=== PATIENT | male | born 1935 | race Caucasian/White ===

== ENCOUNTER 2016-05-31 15:34 | Inpatient (IN) ==
[2016-05-31] MEDS ORDERED: *HR* HYDROmorphone (PF) 1 MG/ML SYRINGE IVP ONE (15:51)
--- NOTE | 2016-05-31 15:54 | Emergency Department Note ---
Disposition Clinical Impression: Diverticulitis large intestine Qualifiers: Diverticulitis bleeding: without bleeding Diverticulitis complication: with perforation Qualified Code(s): K57.20 - Diverticulitis of large intestine with perforation and abscess without bleeding Leukocytosis Qualifiers: Leukocytosis type: bandemia Qualified Code(s): D72.825 - Bandemia Disposition: Admitted As Inpatient Condition: Fair Instructions: Diverticulitis (ED) Referrals: NO,PCP [Non-Partnered Physician] - Forms: Work/School Release, ED Satisfaction Letter Time of Disposition: 16:13 (Dr. 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 He presents today as a transfer from the [facility] due to concern for diverticulitis and microperforation. Patient said the he has no known history of diverticulosis or diverticulitis. He has been having abdominal pain for the past 4 days. He presented to the [facility] and had a workup done. White blood cell count 16.4, neutrophil 80 blood shift, urinalysis negative, BMP shows creatinine 2.73, increased total bilirubin 1.4, direct bili 0.4. The patient had a CT scan done without contrast due to contrast allergy. CT shows sigmoid diverticulitis with a small focus of extraluminal free air consistent with a microperforation in the left lower quadrant. Patient was given Zosyn at the [facility]. Patient currently rates his pain a 7 out of 10. He did not receive any pain medication at the [place]. Denies any other symptoms of chest pain , shortness of breath, fevers, nausea, vomiting, blood in stool, burning or blood in urine. Pain Scale: 6 - Related Data Allergies Allergy/AdvReac Type Severity Reaction Status Date / Time ivp dye Allergy Anaphylaxis Uncoded 05/31/16 15:44 All systems ED: reviewed and negative except as stated. Abdominal Pain PMH - Past Medical History Medical history: Reports: coronary artery disease, CVA, hyperlipidemia, hypertension, myocardial infarction, renal disease, thyroid disease Male Surgical History: Reports: cholecystectomy Psychiatric history: Reports: no psych history - Social History Smoking status: Never smoker Alcohol use: Reports: none Drug use: Reports: none Physical Exam - General Limitations: no limitations General appearance: alert - Head Head exam: atraumatic, normocephalic, normal inspection - Eye Eye exam: Present: normal appearance, PERRL, EOMI - ENT ENT exam: normal exam, normal oropharynx, mucous membranes moist - Neck Neck exam: Present: normal inspection, full ROM, trachea midline - Chest Chest inspection: Present: normal inspection, symmetric chest wall rise - Respiratory Respiratory exam: Present: normal lung sounds bilaterally - Cardiovascular Cardiovascular exam: Present: regular rate, normal rhythm, normal heart sounds - Abdominal Exam Abdominal exam: Present: soft, tenderness (Moderate in left lower quadrant, mild right lower quadrant), guarding (mild voluntary). Absent: distention, rigidity, tenderness at McBurney's Point - Extremities Exam Extremities exam: Present: normal inspection, full ROM. Absent: tenderness, pedal edema - Back Exam Back exam: Present: normal inspection, full ROM. Absent: tenderness - Neurological Exam Neurological exam: Present: alert, oriented X3 - Psychiatric Psychiatric exam: Present: normal affect, normal mood - Skin Skin exam: Present: warm, dry, intact, normal color Course Course Narrative: Patient mildly hypertensive on presentation. Likely due to pain. The rest of vitals are within normal limits. Will give Dilaudid for pain control. CT scan shows diverticulitis with small perforation. I went through the scan myself and there is significant fat stranding in that area as well. Patient given Zosyn. Abdominal exam shows moderate tenderness in the left lower quadrant, mild in the right lower quadrant. No peritoneal signs at this time. We will talk with Dr. Montenegro, surgery, for further recommendation and likely admission. 16:[address] Montenegro with surgery, he stated that due to physical exam findings and only microperforation, this would be more of a medicine admission with surgery as a consult. He said that IV Zosyn was adequate coverage for right now. Otherwise, no immediate surgery at this time. His nurse practitioner will evaluate the patient while in the ED. 16:13 Dr. Gotti accepts for admission . Vital Signs Temperature 98.7 F 05/31/16 15:35 Pulse Rate 84 05/31/16 15:35 Respiratory Rate 18 05/31/16 15:35 Blood Pressure 162/88 05/31/16 15:35 O2 Sat by Pulse Oximetry 97 05/31/16 15:35 Temperature 98.7 F 05/31/16 15:35 Pulse Rate 84 05/31/16 15:35 Respiratory Rate 18 05/31/16 15:35 Blood Pressure 162/88 05/31/16 15:35 O2 Sat by Pulse Oximetry 97 05/31/16 15:35 Oxygen Delivery Oxygen Delivery Room Air Abdominal Pain - MDM Narrative Medical decision making narrative: atient mildly hypertensive on presentation. Likely due to pain. The rest of vitals are within normal limits. Will give Dilaudid for pain control. CT scan shows diverticulitis with small perforation. I went through the scan myself and there is significant fat stranding in that area as well. Patient given Zosyn. Abdominal exam shows moderate tenderness in the left lower quadrant, mild in the right lower quadrant. No peritoneal signs at this time. We will talk with Dr. Montenegro, surgery, for further recommendation and likely admission. 16:[address] Montenegro with surgery, he stated that due to physical exam findings and only microperforation, this would be more of a medicine admission with surgery as a consult. He said that IV Zosyn was adequate coverage for right now. Otherwise, no immediate surgery at this time. His nurse practitioner will evaluate the patient while in the ED. Michelle - Mariel.Denise Situation: Demographics, MOA Background: Presenting Complaint, Relevant PMH, Meds, & Allergies Assessment: Vital Signs, Course and respsone to treatment, Exam Concerns, Patient/Family Expectation, Pertinant Lab Results, Outstanding Labs Recommendation: Barrier(s) to disposition, Recommendation based on pending studies, treatments, or consults S.B.A.RHarjit Report Given to: Shen Martinez Repor Time: 16:13
--- NOTE | 2016-05-31 16:25 | Emergency Department Note ---
Disposition Clinical Impression: Diverticulitis large intestine Qualifiers: Diverticulitis bleeding: without bleeding Diverticulitis complication: with perforation Qualified Code(s): K57.20 - Diverticulitis of large intestine with perforation and abscess without bleeding Leukocytosis Qualifiers: Leukocytosis type: bandemia Qualified Code(s): D72.825 - Bandemia Disposition: Admitted As Inpatient Condition: Fair Instructions: Diverticulitis (ED) Referrals: NO,PCP [Non-Partnered Physician] - Forms: ED Satisfaction Letter, Work/School Release General Adult HPI - General Chief complaint: ED Abdominal Pain Stated complaint: abd pain Time Seen by Provider: 05/31/16 15:37 Source: EMS Mode of arrival: EMS Limitations: no limitations - History of Present Illness Pain Scale: 6 - Related Data Allergies Allergy/AdvReac Type Severity Reaction Status Date / Time lovastatin AdvReac unknown Verified 05/31/16 16:23 simvastatin AdvReac unknown Verified 05/31/16 16:23 ivp dye Allergy Anaphylaxis Uncoded 05/31/16 15:44 Past Medical History - Past Medical History Medical history: Reports: coronary artery disease, CVA, hyperlipidemia, hypertension, myocardial infarction, renal disease, thyroid disease Psychiatric history: Reports: no psych history - Social History Smoking Status: Never smoker Smokeless Tobacco Status: No Alcohol use: Reports: none Drug use: Reports: none Physical Exam - General Limitations: no limitations General appearance: alert Course - Reevaluation(s) Reevaluation #1: I saw the patient with the resident, Dr. Gaytan. The patient was transferred here from the [facility] after presenting there with abdominal pain. Evaluation and CT imaging were done. Patient found have diverticulitis. There is concern for microperforation as well. On arrival here the patient looks pretty comfortable lying in the bed. He does have some left lower quadrant tenderness. We discussed the case with surgery and they recommended no surgery at this time but antibiotics and admission to medicine with surgical consult. We have spoken with medicine as well and will arrange to admit the patient. Time: 16:24 Vital Signs Temperature 98.7 F 05/31/16 15:35 Pulse Rate 84 05/31/16 15:35 Respiratory Rate 18 05/31/16 15:35 Blood Pressure 162/88 05/31/16 15:35 O2 Sat by Pulse Oximetry 97 05/31/16 15:35 Temperature 98.7 F 05/31/16 15:35 Pulse Rate 84 05/31/16 15:35 Respiratory Rate 18 05/31/16 15:35 Blood Pressure 162/88 05/31/16 15:35 O2 Sat by Pulse Oximetry 97 05/31/16 15:35 Oxygen Delivery Oxygen Delivery Room Air Attestation Statement - Attestation Attestation: I, Dr. Damon, examined this patient [id number] and my medical decision- making was reviewed with Dr. Gaytan, Resident Physician. I agree with the documented findings, disposition and treatment plan as described except to the extent set forth below. Please see my progress notes for details.
[2016-05-31 16:31] LABS: INR 1.6; Prothrombin Time 17.3 Seconds (9.4-12.1)
[2016-05-31 16:34] LABS: Activated Partial Thrombo Time 34.6 Seconds (26.0-36.0)
[2016-05-31] MEDS ORDERED: Naloxone 0.4 MG/ML INJ IVP PRN (17:04)
[2016-05-31] MEDS ORDERED: *HR* HYDROmorphone (PF) 1 MG/ML SYRINGE IVP PRN (17:04)
[2016-05-31] MEDS ORDERED: Ondansetron 4 MG/2 ML VIAL IVP PRN (17:04)
[2016-05-31] MEDS ORDERED: Psyllium 1 PACKET POWD.PACK PO PRN (17:06)
--- NOTE | 2016-05-31 17:10 | General Surgery Consult Note ---
<LanMikeSkyler M - Last Filed: 06/01/16 09:22> Date of Encounter: 06/01/16 Medications and Allergies Amlodipine Besylate 10 mg PO DAILY 05/31/16 [History] Aspirin 81 mg PO DAILY 05/31/16 [History] Ezetimibe [Zetia] 10 mg PO DAILY 05/31/16 [History] Isosorbide DInitrate [Isordil] 20 mg PO TIDAC 05/31/16 [History] Levothyroxine [Synthroid] 37.5 mcg PO QAM 05/31/16 [History] Losartan [Cozaar] 25 mg PO DAILY 05/31/16 [History] Metoprolol XL (24 HR) Succ [Toprol XL] 50 mg PO DAILY 05/31/16 [History] Psyllium Husk/Aspartame [Metamucil Fiber Singles Packet] 3.4 gm PO DAILY PRN 06/15 [History] Allergies lovastatin Adverse Reaction (Verified 05/31/16 16:23) unknown va list simvastatin Adverse Reaction (Verified 05/31/16 16:23) unknown va list ivp dye Allergy (Uncoded 05/31/16 15:44) Anaphylaxis Review of Systems All systems PM: A 10-system review of systems was performed and is negative for pertinent findings except as documented above in the HPI. General Surgery Exam Initial Vital Signs Temp Pulse Resp BP Pulse Ox 98.7 F 84 18 162/88 97 05/31/16 15:35 05/31/16 15:35 05/31/16 15:35 05/31/16 15:35 05/31/16 15:35 Exam Initial Vital Signs Temp Pulse Resp BP Pulse Ox 98.7 F 84 18 162/88 97 05/31/16 15:35 05/31/16 15:35 05/31/16 15:35 05/31/16 15:35 05/31/16 15:35 Results - Labs 06/01/16 04:42 06/01/16 04:42 Abnormal lab results WBC 12.0 K/mcL (4.3-11.1) H 06/01/16 04:42 RBC 4.13 M/mcL (4.19-5.50) L 06/01/16 04:42 Hgb 12.1 g/dL (12.9-16.9) L 06/01/16 04:42 Hct 36.5 % (37.5-50.1) L 06/01/16 04:42 Neutrophils # 9.2 K/mcL (1.6-8.9) H 06/01/16 04:42 PT 17.3 Seconds (9.4-12.1) H 05/31/16 16:21 Sodium 131 mEq/L (136-145) L 06/01/16 04:42 BUN 34 mg/dL (8-26) H 06/01/16 04:42 Creatinine 2.50 mg/dL (0.72-1.25) H 06/01/16 04:42 Est GFR ( Amer) 30 (> 60) L 06/01/16 04:42 Est GFR (Non-Af Amer) 25 (> 60) L 06/01/16 04:42 POC Glucose 100 (58-89) H 06/01/16 05:48 Calculated Osmolality 279 (280-300) L 06/01/16 04:42 Calcium 8.4 mg/dL (8.6-10.8) L 06/01/16 04:42 Diabetes panel 06/01/16 Range/Units 04:42 Sodium 131 L (136-145) mEq/L Potassium 3.9 (3.5-4.5) mEq/L Chloride 101 (98-109) mEq/L Carbon Dioxide 22 (19-29) mEq/L BUN 34 H (8-26) mg/dL Creatinine 2.50 H (0.72-1.25) mg/dL Glucose 88 (70-99) mg/dL Calcium 8.4 L (8.6-10.8) mg/dL Calcium panel 06/01/16 Range/Units 04:42 Calcium 8.4 L (8.6-10.8) mg/dL Phosphorus 2.8 (2.3-4.7) mg/dL Pituitary panel 06/01/16 Range/Units 04:42 Sodium 131 L (136-145) mEq/L Potassium 3.9 (3.5-4.5) mEq/L Chloride 101 (98-109) mEq/L Carbon Dioxide 22 (19-29) mEq/L BUN 34 H (8-26) mg/dL Creatinine 2.50 H (0.72-1.25) mg/dL Glucose 88 (70-99) mg/dL Calcium 8.4 L (8.6-10.8) mg/dL Adrenal panel 06/01/16 Range/Units 04:42 Sodium 131 L (136-145) mEq/L Potassium 3.9 (3.5-4.5) mEq/L Chloride 101 (98-109) mEq/L Carbon Dioxide 22 (19-29) mEq/L BUN 34 H (8-26) mg/dL Creatinine 2.50 H (0.72-1.25) mg/dL Glucose 88 (70-99) mg/dL Calcium 8.4 L (8.6-10.8) mg/dL All other labs normal. Consult Discharge Plan - Plan Referrals: [facility] [Outside] - Attending Attestation I examined this patient and my medical decision-making was reviewed with the COATING OPERATOR/PA/Advanced Practice Nurse/Resident Physician. I agree with the documented findings, disposition and treatment plan as described except to the extent set forth below. I reviewed the above-noted history of physical examination and performed my own examination. Patient with left lower quadrant abdominal pain for about 3 days. States that the pain is slightly better currently. Last bowel movement was yesterday. No rectal bleeding noted. He does have pain to palpation in the left lower quadrant. Noted leukocytosis of 16,[address] scan consistent with diverticulitis with a small microperforation. I agree with conservative therapy with IV antibiotics and serial abdominal exams as well as pain control. Recommend ice chips for now. Will follow with you. <Harry Walker - Last Filed: 06/01/16 11:08> Date of Encounter: 06/01/16 Time of Encounter: 16:40 Assessment and Plan (1) Acute diverticulitis Current Visit: Yes Status: Acute CT with acute diverticulitis with microperforations: Serial abdominal exams. Trend vitals and labs. NPO except ice chips. Continue IV antibiotics Continue IV fluids. Supportive care/pain control No surgical intervention recommended at this time. Consider repeat CT prior to discharge or sooner if indicated. Recommend Colonscopy as outpatient after acute infection has resolved. (2) Leukocytosis Current Visit: Yes Status: Acute Labs done at [facility] prior to admission. WBC 16.4 with 80% neutrophils. Continue to monitor, will recheck in the AM. Qualifiers: Qualified Code(s): D72.825 - Bandemia (3) Hypertension Current Visit: Yes Status: Chronic Will continue to monitor. Management per medicine service Qualifiers: Qualified Code(s): I10 - Essential (primary) hypertension (4) CKD (chronic kidney disease) Current Visit: Yes Status: Chronic Management per medicine service Qualifiers: Qualified Code(s): N18.9 - Chronic kidney disease, unspecified (5) Hyperlipidemia Current Visit: Yes Status: Chronic Qualifiers: Qualified Code(s): E78.5 - Hyperlipidemia, unspecified (6) CAD (coronary artery disease) Current Visit: Yes Status: Chronic Management per medicine service Qualifiers: Qualified Code(s): I25.10 - Atherosclerotic heart disease of [place] coronary artery without angina pectoris History of Present Illness Consult date: 05/31/16 Reason for consult: abdominal pain Requesting physician: Arron Gaytan History of present illness: Mr. Morgan is a 80 year old male transferred from the [place] for abdominal pain x 4 days. Patient states the pain is worst in the LLQ, describes the pain as stabbing. He notes the pain is now dull since administration of pain medication. He notes nausea with decrease PO intake the past 4 days and decreased urine output as result. He states last BM was this AM, noting mucus. And last meal was cereal at 9:30am. He denies any fever, chills, chest pain, shortness of breath, vomiting, diarrhea, constipation, melena or blood in stool. He has a PMHx including HTN, CKD, multiple CVAs (currently on ASA 81mg) s/p bilateral carotid endoartectomies, prostate cancer s/p TURP (6years ago), cholecystectomy, and partial colon resection (in the for benign tumor). Last colonscopy 6-7 years ago. Past Med Surg Social Fam HX - Past Medical History Source: patient Medical history: cancer (prostate), coronary artery disease, CVA, hyperlipidemia , hypertension, myocardial infarction, renal disease, thyroid disease Psychiatric history: no psych history - Past Surgical History Surgical History: carotid endarterectomy (b/l), cholecystectomy, colectomy (R resection for benign tumor removal), other (TURP) - Social History Smoking Status: Former smoker Smokeless Tobacco Status: No Alcohol use: none Drug use: none - Family History Brother Hx Family Cardiac Disorders: Yes (CAD) Hx Family Cancer: Yes (colon) Review of Systems All systems PM: A 10-system review of systems was performed and is negative for pertinent findings except as documented above in the HPI. - Constitutional no chills, no fever(s) - EENT Nose, mouth and throat: no dysphagia - Cardiovascular no chest pain, no dyspnea, no syncope - Respiratory no dyspnea - Gastrointestinal abdominal pain, nausea, no constipation, no diarrhea, no dysphagia, no vomiting - Genitourinary no dysuria, no hematuria - Musculoskeletal no abnormal gait, no back pain - Integumentary no erythema, no rash - Neurological no abnormal gait, no confusion, no dizziness - Endocrine no excessive sweating, no fatigue General Surgery Exam Initial Vital Signs Temp Pulse Resp BP Pulse Ox 98.7 F 84 18 162/88 97 05/31/16 15:35 05/31/16 15:35 05/31/16 15:35 05/31/16 15:35 05/31/16 15:35 - General physical appearance well developed, well nourished, moderate pain - Eyes normal ocular movement - ENT normal mucosa, atraumatic, normocephalic - Neck trachea midline - Respiratory normal respiratory effort, clear to auscultation - Cardiovascular Cardiovascular exam: Present: RRR - Abdomen Abdomen general surgery: Present: bowel sounds present, soft, tender. Absent: distended, guarding, rebound, rigid Abdominal Tenderness: Present: LLQ - Integumentary Integumentary general surgery: Present: warm and dry - Neurologic Present: CN 2-12 grossly intact - Musculoskeletal Present: normal posture - Psychiatric Psychiatric general surgery: Present: A&Ox3, speech is normal, memory intact Exam Initial Vital Signs Temp Pulse Resp BP Pulse Ox 98.7 F 84 18 162/88 97 05/31/16 15:35 05/31/16 15:35 05/31/16 15:35 05/31/16 15:35 05/31/16 15:35 Results - Labs 06/01/16 04:42 06/01/16 04:42 Abnormal lab results PT 17.3 Seconds (9.4-12.1) H 05/31/16 16:21 All other labs normal.
[2016-05-31] MEDS ORDERED: 0.9 % Sodium Chloride 1,000 ML IVC SCH (17:15)
--- NOTE | 2016-05-31 17:45 | Internal Med History&Physical ---
Date of Encounter: 05/31/16 Time of Encounter: 17:10 Assessment and Plan (1) Acute diverticulitis Current visit: Yes Status: Acute CT abd/pelvis (done at the [facility]): acute sigmoid diverticulitis with a small focus of extraluminal free air, consistent with microperforation. -Surgery consultation requested by the ER physician -Dr. Montenegro to follow the patient and supportive care recommended at this time -appreciate surgical eval -Pt received one dose of Zosyn, will continue Ciprofloxacin 400mg IV q12h and Metronidazole 500mg IV q12h -NPO except meds and ice chips at this time -advance to clear liquid diet in am if patient clinically improves -pain management -continue IV fluids -Zofran PRN n/v (2) CKD (chronic kidney disease) Current visit: Yes Status: Chronic Last creatinine from the [facility] labs reported to be 2.73, no prior labs available for comparison Will continue to closely monitor Avoid nephrotoxic agents Qualifiers: Chronic kidney disease stage: unspecified stage Qualified Code(s): N18.9 - Chronic kidney disease, unspecified (3) Hypertension Current visit: Yes Status: Chronic BP within acceptable range continue home medications Qualifiers: Hypertension type: essential hypertension Qualified Code(s): I10 - Essential (primary) hypertension (4) Obesity Current visit: Yes Status: Chronic Qualifiers: Obesity type: unspecified obesity type Obesity severity: unspecified obesity severity Qualified Code(s): E66.9 - Obesity, unspecified (5) Hyperlipidemia Current visit: Yes Status: Chronic continue home medications Qualifiers: Hyperlipidemia type: unspecified Qualified Code(s): E78.5 - Hyperlipidemia , unspecified (6) CAD (coronary artery disease) Current visit: Yes Status: Chronic No signs of angina present at this time continue home medications Qualifiers: Coronary Disease-Associated Artery/Lesion type: unspecified vessel or lesion type [place] vs. transplanted heart: [place] heart Associated angina: angina presence unspecified Qualified Code(s): I25.10 - Atherosclerotic heart disease of [place] coronary artery without angina pectoris (7) DVT prophylaxis Current visit: Yes Status: Acute Heparin SQ Internal Medicine - H&P: HPI Chief complaint: transfer from the [place] for diverticulitis Admitted From: Intrahospital Transfer Plans for Post Hospital Care: Home History of present illness: Mr. 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 Patient reports of having localized, sharp LLQ abdominal pain for the last four days along with decrease in appetite. Reports of having a colonoscopy about 6-7years ago. Denies any diarrhea, constipation, blood in stool. Prior to transfer from the [facility], patient received one dose of Zosyn and was given Dilaudid in the [facility] ER. At this time he resting in bed and states the pain is better controlled. Reports of nausea, but denies any fever, or chills at this time. Reports of family history with brother having history of colon ca. Patient educated by Dr. Montenegro (surgery) for outpatient colonoscopy once he is recovered from this episode of diverticulitis. Social Hx: Former smoker Patient wishes to be full code. Past Med Surg Social Fam HX - Past Medical History Medical history: coronary artery disease, hyperlipidemia, hypertension, myocardial infarction, renal disease, thyroid disease Psychiatric history: no psych history - Social History Smoking Status: Former smoker Smokeless Tobacco Status: No Alcohol use: none Drug use: none Internal Medicine - H&P: Meds Amlodipine Besylate 10 mg PO DAILY 05/31/16 [History] Aspirin 81 mg PO DAILY 05/31/16 [History] Ezetimibe [Zetia] 10 mg PO DAILY 05/31/16 [History] Isosorbide DInitrate [Isordil] 20 mg PO TIDAC 05/31/16 [History] Levothyroxine [Synthroid] 37.5 mcg PO QAM 05/31/16 [History] Losartan [Cozaar] 25 mg PO DAILY 05/31/16 [History] Metoprolol XL (24 HR) Succ [Toprol XL] 50 mg PO DAILY 05/31/16 [History] Psyllium Husk/Aspartame [Metamucil Fiber Singles Packet] 3.4 gm PO DAILY PRN 06/15 [History] Allergies lovastatin Adverse Reaction (Verified 05/31/16 16:23) unknown va list simvastatin Adverse Reaction (Verified 05/31/16 16:23) unknown va list ivp dye Allergy (Uncoded 05/31/16 15:44) Anaphylaxis All Systems PM: A 10-system review of systems was performed and is negative for pertinent findings except as documented above in the HPI. - Constitutional Constitutional: as per HPI, no chills, no fever(s) - Cardiovascular Cardiovascular ROS IM: no chest pain, no dyspnea, no lightheadedness, no palpitations - Respiratory Respiratory: no cough, no hemoptysis, no wheezing, no pain on inspiration - Gastrointestinal Gastrointestinal: nausea, no constipation, no diarrhea, no heartburn - Neurological Neurological ROS: no dizziness, no weakness - Constitutional Vitals: Temp Pulse Resp BP Pulse Ox 98.6 F 72 16 137/69 97 05/31/16 17:30 05/31/16 17:30 05/31/16 17:30 05/31/16 17:30 05/31/16 17:30 General appearance: Present: A&O X 3, pleasant, no acute distress, obese, answers questions appropriately - Head Head exam: Present: atraumatic, normocephalic - Eye Eye exam: Present: normal appearance, conjuntiva pink, sclera anicteric - Respiratory Respiratory exam: Present: CTAB. Absent: respiratory distress, wheezes - Cardiovascular Cardiovascular exam: Present: RRR, +S1, +S2 - GI/Abdominal GI/Abdominal exam: Present: normal bowel sounds, soft, tenderness (LLQ tenderness to palpation). Absent: distended, guarding, rebound - Extremities Exam Extremities exam: Present: warm, radial pulses palpable and symetrical. Absent : calf tenderness, pedal edema, tenderness - Neurological Exam Neurological exam: Present: alert, oriented X3, no focal deficits - Psychiatric Psychiatric exam: Present: normal affect, normal mood
[2016-05-31] MEDS: 0.9 % Sodium Chloride 1,000 ML IVC SCH (18:38)
[2016-05-31] MEDS: *HR* Heparin 5,000 UNIT/ML VIAL SQ SCH (18:42)
[2016-05-31] MEDS: *HR* Morphine 2 MG/ML SYRINGE IVP PRN (21:41)
[2016-06-01] MEDS: 0.9 % Sodium Chloride 1,000 ML IVC SCH (05:22)
[2016-06-01 05:27] LABS: Basophils # 0.1 K/mcL (0.0-0.2); Basophils % 0.8 %; Eosinophils # 0.1 K/mcL (0.0-0.6); Hematocrit 36.5 % (37.5-50.1); Hemoglobin 12.1 g/dL (12.9-16.9); Immature Granulocytes % 0.3 % (0-4); Lymphocytes # 1.4 K/mcL (0.6-4.6); Mean Corpuscular HGB Conc 33.2 g/dL (31.6-35.5); Mean Corpuscular Hemoglobin 29.3 pg (28.0-33.3); Mean Corpuscular Volume 88.4 fL (83.0-100.0); Mean Platelet Volume 10.4 fL (9.4-12.4); Monocytes # 1.1 K/mcL (0.0-1.3); Monocytes % 8.9 %; Neutrophils # 9.2 K/mcL (1.6-8.9); Platelet Count 148 K/mcL (140-400); Red Blood Count 4.13 M/mcL (4.19-5.50); Red Cell Distribution Width 14.4 % (11.5-14.5)
[2016-06-01 05:42] LABS: Calcium 8.4 mg/dL (8.6-10.8); Magnesium 1.6 mg/dL (1.6-2.6); Phosphorous 2.8 mg/dL (2.3-4.7); Potassium 3.9 mEq/L (3.5-4.5)
[2016-06-01] MEDS: *HR* Heparin 5,000 UNIT/ML VIAL SQ SCH ×2 (06:36→17:03)
[2016-06-01] MEDS: amLODIPine 5 MG TABLET PO SCH (07:58)
[2016-06-01] MEDS: Levothyroxine 25 MCG TABLET PO SCH (07:58)
[2016-06-01] MEDS: Aspirin 81 MG TAB.CHEW PO SCH (07:59)
[2016-06-01] MEDS: Pantoprazole 40 MG VIAL IVP SCH (07:59)
[2016-06-01] MEDS: Metoprolol XL (24 HR) Succ 50 MG TAB.ER.24H PO SCH (08:00)
--- NOTE | 2016-06-01 09:06 | General Surgery Progress Note ---
<Skyler Montenegro - Last Filed: 06/01/16 09:24> Date of Encounter: 06/01/16 Objective Vital Signs - Last 8 Hours Temp Pulse Resp BP Pulse Ox 06/01/16 07:06 99.1 F 77 14 140/68 96 06/01/16 04:10 99.6 F 93 16 162/74 94 L Intake and Output 05/31/16 06/01/16 06/01/16 23:59 07:59 15:59 Intake Total 260 / 260 60 / 60 200 / 200 Output Total 0 / 0 625 / 625 Balance 260 / 260 -565 / -565 200 / 200 Intake: IV Fluids 200 / 200 0 / 0 200 / 200 0.9 % Sodium Chloride 1, 0 / 0 000 ML @ 100 mls/hr IVC . Q10H [facility] Rx#:[id number] Cipro 400 MG/200 ML 400 200 / 200 200 / 200 mg In 200 ml @ 200 mls/hr IVPB Q12HR [facility] Rx#: [id number] Oral 60 / 60 60 / 60 Output: Urine 0 / 0 625 / 625 Other: Meal NPO Weight 81.788 kg Blood Glucose* 97 100 Patient Weight 06/01/16 23:59 Weight 81.788 kg - Labs 06/01/16 04:42 06/01/16 04:42 Diabetes panel 06/01/16 Range/Units 04:42 Sodium 131 L (136-145) mEq/L Potassium 3.9 (3.5-4.5) mEq/L Chloride 101 (98-109) mEq/L Carbon Dioxide 22 (19-29) mEq/L BUN 34 H (8-26) mg/dL Creatinine 2.50 H (0.72-1.25) mg/dL Glucose 88 (70-99) mg/dL Calcium 8.4 L (8.6-10.8) mg/dL Calcium panel 06/01/16 Range/Units 04:42 Calcium 8.4 L (8.6-10.8) mg/dL Phosphorus 2.8 (2.3-4.7) mg/dL Pituitary panel 06/01/16 Range/Units 04:42 Sodium 131 L (136-145) mEq/L Potassium 3.9 (3.5-4.5) mEq/L Chloride 101 (98-109) mEq/L Carbon Dioxide 22 (19-29) mEq/L BUN 34 H (8-26) mg/dL Creatinine 2.50 H (0.72-1.25) mg/dL Glucose 88 (70-99) mg/dL Calcium 8.4 L (8.6-10.8) mg/dL Adrenal panel 06/01/16 Range/Units 04:42 Sodium 131 L (136-145) mEq/L Potassium 3.9 (3.5-4.5) mEq/L Chloride 101 (98-109) mEq/L Carbon Dioxide 22 (19-29) mEq/L BUN 34 H (8-26) mg/dL Creatinine 2.50 H (0.72-1.25) mg/dL Glucose 88 (70-99) mg/dL Calcium 8.4 L (8.6-10.8) mg/dL Consult Discharge Plan - Plan Referrals: [facility] [Outside] - Attending Attestation I examined this patient and my medical decision-making was reviewed with the MILIEU MANAGER/PA/Advanced Practice Nurse/Resident Physician. I agree with the documented findings, disposition and treatment plan as described except to the extent set forth below. I reviewed the above-noted history and physical examination. Patient feels slightly better. Noted improvement in white count to 12,000 and noted improvement in creatinine level. Continue with IV antibiotics. Will advance to clear liquids. <Harry Walker - Last Filed: 06/01/16 11:09> Date of Encounter: 06/01/16 Time of Encounter: 09:04 - Assessment and Plan (1) Acute diverticulitis Current Visit: Yes Status: Acute CT with acute diverticulitis with microperforations: Serial abdominal exams. Trend vitals and labs. WBC improved 16.4>12 Advancing to clear liquids. Continue IV antibiotics Continue IV fluids. Supportive care/pain control No surgical intervention recommended at this time. Consider repeat CT prior to discharge or sooner if indicated. Recommend Colonscopy as outpatient after acute infection has resolved. (2) Leukocytosis Current Visit: Yes Status: Acute Improving, WBC 16.4 >12 Continue to monitor, will recheck in the AM. Qualifiers: Qualified Code(s): D72.825 - Bandemia (3) Hypertension Current Visit: Yes Status: Chronic Management per medicine service Qualifiers: Qualified Code(s): I10 - Essential (primary) hypertension (4) CKD (chronic kidney disease) Current Visit: Yes Status: Chronic Management per medicine service Qualifiers: Qualified Code(s): N18.9 - Chronic kidney disease, unspecified (5) Hyperlipidemia Current Visit: Yes Status: Chronic Qualifiers: Qualified Code(s): E78.5 - Hyperlipidemia, unspecified (6) CAD (coronary artery disease) Current Visit: Yes Status: Chronic Management per medicine service Qualifiers: Qualified Code(s): I25.10 - Atherosclerotic heart disease of [place] coronary artery without angina pectoris Subjective Patient reports: no new complaints, feels better, still having pain, pain is less, voiding w/o difficulty, flatus, no bowel movement, nausea, afebrile (max temp 100.1) Objective Vital Signs - Last 8 Hours Temp Pulse Resp BP Pulse Ox 06/01/16 07:06 99.1 F 77 14 140/68 96 06/01/16 04:10 99.6 F 93 16 162/74 94 L Intake and Output 05/31/16 06/01/16 06/01/16 23:59 07:59 15:59 Intake Total 260 / 260 60 / 60 200 / 200 Output Total 0 / 0 625 / 625 Balance 260 / 260 -565 / -565 200 / 200 Intake: IV Fluids 200 / 200 0 / 0 200 / 200 0.9 % Sodium Chloride 1, 0 / 0 000 ML @ 100 mls/hr IVC . Q10H [facility] Rx#:[id number] Cipro 400 MG/200 ML 400 200 / 200 200 / 200 mg In 200 ml @ 200 mls/hr IVPB Q12HR [facility] Rx#: [id number] Oral 60 / 60 60 / 60 Output: Urine 0 / 0 625 / 625 Other: Meal NPO Weight 81.788 kg Blood Glucose* 97 100 Patient Weight 06/01/16 23:59 Weight 81.788 kg - General physical appearance well developed, well nourished, no distress - Eyes normal ocular movement - ENT normal mucosa, atraumatic, normocephalic - Neck Neck exam: trachea midline - Respiratory normal respiratory effort, clear to auscultation - Cardiovascular Cardiovascular exam: Present: RRR - Abdomen Abdomen: Present: bowel sounds present, soft, tender (difusely tender, worst in supra pubic area.) - Integumentary no rash - Neurologic CN 2-12 grossly intact - Psychiatric oriented to time, oriented to person, oriented to place, speech is normal, memory intact - Labs 06/01/16 04:42 06/01/16 04:42 Diabetes panel 06/01/16 Range/Units 04:42 Sodium 131 L (136-145) mEq/L Potassium 3.9 (3.5-4.5) mEq/L Chloride 101 (98-109) mEq/L Carbon Dioxide 22 (19-29) mEq/L BUN 34 H (8-26) mg/dL Creatinine 2.50 H (0.72-1.25) mg/dL Glucose 88 (70-99) mg/dL Calcium 8.4 L (8.6-10.8) mg/dL Calcium panel 06/01/16 Range/Units 04:42 Calcium 8.4 L (8.6-10.8) mg/dL Phosphorus 2.8 (2.3-4.7) mg/dL Pituitary panel 06/01/16 Range/Units 04:42 Sodium 131 L (136-145) mEq/L Potassium 3.9 (3.5-4.5) mEq/L Chloride 101 (98-109) mEq/L Carbon Dioxide 22 (19-29) mEq/L BUN 34 H (8-26) mg/dL Creatinine 2.50 H (0.72-1.25) mg/dL Glucose 88 (70-99) mg/dL Calcium 8.4 L (8.6-10.8) mg/dL Adrenal panel 06/01/16 Range/Units 04:42 Sodium 131 L (136-145) mEq/L Potassium 3.9 (3.5-4.5) mEq/L Chloride 101 (98-109) mEq/L Carbon Dioxide 22 (19-29) mEq/L BUN 34 H (8-26) mg/dL Creatinine 2.50 H (0.72-1.25) mg/dL Glucose 88 (70-99) mg/dL Calcium 8.4 L (8.6-10.8) mg/dL
--- NOTE | 2016-06-01 09:09 | Internal Med Progress Note ---
<NickcadenceRenato Chand - Last Filed: 06/01/16 13:38> Date of Encounter: 06/01/16 Time of Encounter: 09:09 - Assessment and plan (1) Acute diverticulitis Current Visit: Yes Status: Acute Assessment and plan: Mr. Morgan was transferred from the [place] with acute diverticulitis associated with microperforation. He continues to have LLQ pain which is improved. WBC 12, Temp up to 100.1 this morning. He feels improved today compared to admission. General surgery is involved. Plan: - Continue Cipro and Flagyl - Tylenol 650 q6hrs PRN for fever/pain - General surgery advancing diet to clear liquids. - Continue IV NS at 100ml/hr. (2) CAD (coronary artery disease) Current Visit: Yes Status: Chronic Assessment and plan: Hx of CAD, currently not on a statin. Patient has allergies to statins. Continue beta andrew, Lipid control and cardiac diet. Qualifiers: Coronary Disease-Associated Artery/Lesion type: unspecified vessel or lesion type [place] vs. transplanted heart: [place] heart Associated angina: angina presence unspecified Qualified Code(s): I25.10 - Atherosclerotic heart disease of [place] coronary artery without angina pectoris (3) CKD (chronic kidney disease) Current Visit: Yes Status: Chronic Assessment and plan: Patient admitted with creatinine of 2.50, with no previous creatinines to compare. Patient states he has a history of CKD. He has also had poor intake for 4 days and acute diverticulitis. Plan: - Continue IV rehydration - Monitor volume status. - Monitor renal function with am labs. - Losartan held. - Avoid nephrotoxic medications and renally dose medications. Avoid NSAIDs. Qualifiers: Chronic kidney disease stage: unspecified stage Qualified Code(s): N18.9 - Chronic kidney disease, unspecified (4) Hyperlipidemia Current Visit: Yes Status: Chronic Assessment and plan: Hx of HLD. Plan: continue home meds. Qualifiers: Hyperlipidemia type: unspecified Qualified Code(s): E78.5 - Hyperlipidemia , unspecified (5) Hypertension Current Visit: Yes Status: Chronic Assessment and plan: Hx of HTN with controlled BP this am. Plan: Continue Amlodipine, Metoprolol. Hold Losartan Qualifiers: Hypertension type: essential hypertension Qualified Code(s): I10 - Essential (primary) hypertension (6) Hypothyroidism Current Visit: Yes Status: Acute Assessment and plan: Hx of Hypothyroidism. Plan: - Continue home dose Levothyroxine Qualifiers: Qualified Code(s): E03.9 - Hypothyroidism, unspecified (7) DVT prophylaxis Current Visit: Yes Status: Acute Assessment and plan: Heparin 5000 units SQ Q12hrs. - Subjective Interval history: Mr. Morgan has been seen at patient bedside this morning. He is alert awake interactive in no acute distress. He said that he is feeling better since admission and said that his abdominal tenderness has improved. He has been trying to take in clear liquids this morning. He denies ever having symptoms similar to this episode in the past. His last by mouth intake was on Saturday and his last bowel movement was on Saturday. He has not had a bowel movement since he has been in the hospital. He denies any fevers, chills, sweating since admission. - Constitutional Vitals: Temp Pulse Resp BP Pulse Ox 99.1 F 77 14 140/68 96 06/01/16 07:06 06/01/16 07:06 06/01/16 07:06 06/01/16 07:06 06/01/16 07:06 General appearance: Present: A&O X 3, pleasant, no acute distress, obese, answers questions appropriately - Head Head exam: Present: atraumatic, normocephalic - Eye Eye exam: Present: PERRL, conjuntiva pink, sclera anicteric Pupils: Present: PERRL - Neck Neck exam general surgery: Present: supple, trachea midline (there is a fullness to the right submandibular region that is hard and nonmobile. The patient says this has been the same size and shape, nonobstructing for 2 years since his endarectomy.) - Respiratory Respiratory exam: Present: CTAB. Absent: accessory muscle use, rales, rhonchi, wheezes - Cardiovascular Cardiovascular exam: Present: RRR, +S1, +S2. Absent: diastolic murmur, gallop, rubs, systolic murmur - GI/Abdominal Additional comments: Abdomen is slightly distended, positive bowel sounds, slightly tender to lower left quadrants. Soft. - Extremities Exam Extremities exam: Present: warm, radial pulses palpable and symetrical. Absent : calf tenderness, cyanotic, pedal edema - Neurological Exam Neurological exam: Present: alert, CN II-XII intact, oriented X3, no focal deficits. Absent: pronater drift, facial droop, speech deficit - Psychiatric Psychiatric exam: Present: normal affect, normal mood - Skin Skin exam: Present: warm Internal Medicine: Result - Labs CBC & Chem 7: 06/01/16 04:42 06/01/16 04:42 Labs: Short CBC 06/01/16 Range/Units 04:42 WBC 12.0 H (4.3-11.1) K/mcL Hgb 12.1 L (12.9-16.9) g/dL Hct 36.5 L (37.5-50.1) % Plt Count 148 (140-400) K/mcL Neutrophils # 9.2 H (1.6-8.9) K/mcL BMP 06/01/16 04:42 Sodium 131 L Potassium 3.9 Chloride 101 Carbon Dioxide 22 BUN 34 H Creatinine 2.50 H Glucose 88 Calcium 8.4 L - ABG Interpretation ABG results: PT/INR, D-dimer PT 17.3 Seconds (9.4-12.1) H 05/31/16 16:21 Consult Discharge Plan - Plan Referrals: [facility] [Outside] <Harshil Regalado - Last Filed: 06/01/16 14:52> Date of Encounter: 06/01/16 - Constitutional Vitals: Temp Pulse Resp BP Pulse Ox 97.8 F 64 16 111/39 95 06/01/16 11:07 06/01/16 11:07 06/01/16 11:07 06/01/16 11:07 06/01/16 11:07 Internal Medicine: Result - Labs CBC & Chem 7: 06/01/16 04:42 06/01/16 04:42 Labs: Short CBC 06/01/16 Range/Units 04:42 WBC 12.0 H (4.3-11.1) K/mcL Hgb 12.1 L (12.9-16.9) g/dL Hct 36.5 L (37.5-50.1) % Plt Count 148 (140-400) K/mcL Neutrophils # 9.2 H (1.6-8.9) K/mcL BMP 06/01/16 04:42 Sodium 131 L Potassium 3.9 Chloride 101 Carbon Dioxide 22 BUN 34 H Creatinine 2.50 H Glucose 88 Calcium 8.4 L - ABG Interpretation ABG results: PT/INR, D-dimer PT 17.3 Seconds (9.4-12.1) H 05/31/16 16:21 - Attending Attestation Mr. Morgan was seen and examined during rounds. He was admitted due to diverticulitis with microperforations. Surgical team is involved, diet has been advanced to clear liquids. We will continue monitoring the patient closely and continue with IV antibiotics.
[2016-06-01] MEDS: MetroNIDAZOLE 500 MG/100 ML 500 MG/100 ML BAG IVPB SCH ×2 (17:04→23:17)
[2016-06-02 05:10] LABS: Basophils # 0.1 K/mcL (0.0-0.2); Basophils % 0.7 %; Eosinophils # 0.5 K/mcL (0.0-0.6); Eosinophils % 6.3 %; Hematocrit 31.8 % (37.5-50.1); Hemoglobin 10.8 g/dL (12.9-16.9); Immature Granulocytes % 0.4 % (0-4); Lymphocytes # 1.4 K/mcL (0.6-4.6); Lymphocytes % 17.1 %; Mean Corpuscular Volume 88.3 fL (83.0-100.0); Mean Platelet Volume 10.4 fL (9.4-12.4); Monocytes # 0.8 K/mcL (0.0-1.3); Monocytes % 10.1 %; Neutrophils # 5.4 K/mcL (1.6-8.9); Platelet Count 134 K/mcL (140-400); Red Cell Distribution Width 14.2 % (11.5-14.5); Segmented Neutrophils % 65.4 %
[2016-06-02 05:32] LABS: Albumin 2.4 g/dL (3.5-5.0); Albumin/Globulin Ratio 0.4 (1.1-2.2); Calcium 8.2 mg/dL (8.6-10.8); Potassium 3.6 mEq/L (3.5-4.5); Total Protein 8.4 g/dL (6.0-8.3)
[2016-06-02] MEDS: *HR* Heparin 5,000 UNIT/ML VIAL SQ SCH ×2 (06:02→17:48)
[2016-06-02] MEDS: Levothyroxine 25 MCG TABLET PO SCH (07:36)
[2016-06-02] MEDS: Metoprolol XL (24 HR) Succ 50 MG TAB.ER.24H PO SCH (07:37)
[2016-06-02] MEDS: Aspirin 81 MG TAB.CHEW PO SCH (07:37)
[2016-06-02] MEDS: Pantoprazole 40 MG VIAL IVP SCH (07:37)
[2016-06-02] MEDS: amLODIPine 5 MG TABLET PO SCH (07:37)
[2016-06-02] MEDS: MetroNIDAZOLE 500 MG/100 ML 500 MG/100 ML BAG IVPB SCH ×2 (07:38→17:39)
--- NOTE | 2016-06-02 10:59 | General Surgery Progress Note ---
Date of Encounter: 06/02/16 Time of Encounter: 10:50 - Assessment and Plan (1) Acute diverticulitis Current Visit: Yes Status: Acute Continue IV antibiotics. We will continue with clear liquid diet. He still has involuntary guarding in the left lower quadrant. He is not ready for transition to oral antibiotics. (2) CKD (chronic kidney disease) Current Visit: Yes Status: Chronic The patient has chronic renal failure. The creatinine worsened once the IV fluids were discontinued. We will plan to restart IV fluids at 125 mL/h and follow the BUN/creatinine. Qualifiers: Chronic kidney disease stage: stage 3 (moderate) Qualified Code(s): N18.3 - Chronic kidney disease, stage 3 (moderate) Subjective Narrative: The patient is admitted for acute diverticulitis. He also has chronic renal failure. He is currently taking clear liquids. His pain is improved but still present in the left lower quadrant. His chronic renal failure has worsened once the IV fluids were discontinued. Overall his condition is improved. He will require additional supportive care for renal function as well as continued IV antibiotic therapy. I think it is reasonable to maintain his diet is clear liquids at this point Objective Vital Signs - Last 8 Hours Temp Pulse Resp BP Pulse Ox 06/02/16 10:51 98.4 F 69 15 152/58 95 06/02/16 07:09 97.9 F 61 15 131/60 93 L Intake and Output 06/01/16 06/02/16 06/02/16 23:59 07:59 15:59 Intake Total 1900 / 1900 1020 / 1020 600 / 600 Output Total 0 / 0 1000 / 1000 325 / 325 Balance 1900 / 1900 20 / 20 275 / 275 Intake: IV Fluids 1300 / 1300 300 / 300 0.9 % Sodium Chloride 1, 1000 / 1000 000 ML @ 100 mls/hr IVC . Q10H [facility] Rx#:[id number] Cipro 400 MG/200 ML 400 200 / 200 200 / 200 mg In 200 ml @ 200 mls/hr IVPB Q12HR [facility] Rx#: [id number] Flagyl 500 MG/100 ML 500 100 / 100 100 / 100 mg In 100 ml @ 100 mls/hr IVPB Q8HR [facility] Rx#: [id number] Oral 600 / 600 720 / 720 600 / 600 Output: Urine 0 / 0 1000 / 1000 325 / 325 Other: Meal Breakfast # Voids 1 # Bowel Movements 0 0 - General physical appearance well developed, well nourished, moderate pain - Respiratory normal expansion, normal respiratory effort, clear to percussion, clear to auscultation - Cardiovascular Cardiovascular exam: Present: RRR, no murmurs/rubs/gallops - Abdomen Abdomen: Present: tender (No rebound however the patient still has involuntary guarding in the left lower quadrant.) Abdominal Tenderness: LLQ - Neurologic normal coordination, normal sensation - Psychiatric oriented to time, oriented to person, oriented to place, speech is normal, memory intact - Labs 06/02/16 04:29 06/02/16 04:29 Diabetes panel 06/02/16 Range/Units 04:29 Sodium 130 L (136-145) mEq/L Potassium 3.6 (3.5-4.5) mEq/L Chloride 102 (98-109) mEq/L Carbon Dioxide 21 (19-29) mEq/L BUN 38 H (8-26) mg/dL Creatinine 2.86 H (0.72-1.25) mg/dL Glucose 96 (70-99) mg/dL Calcium 8.2 L (8.6-10.8) mg/dL AST 24 (5-34) Units/L ALT 21 (0-55) Units/L Alkaline Phosphatase 83 (38-126) Units/L Albumin 2.4 L (3.5-5.0) g/dL Calcium panel 06/02/16 Range/Units 04:29 Calcium 8.2 L (8.6-10.8) mg/dL Albumin 2.4 L (3.5-5.0) g/dL Pituitary panel 06/02/16 Range/Units 04:29 Sodium 130 L (136-145) mEq/L Potassium 3.6 (3.5-4.5) mEq/L Chloride 102 (98-109) mEq/L Carbon Dioxide 21 (19-29) mEq/L BUN 38 H (8-26) mg/dL Creatinine 2.86 H (0.72-1.25) mg/dL Glucose 96 (70-99) mg/dL Calcium 8.2 L (8.6-10.8) mg/dL Adrenal panel 06/02/16 Range/Units 04:29 Sodium 130 L (136-145) mEq/L Potassium 3.6 (3.5-4.5) mEq/L Chloride 102 (98-109) mEq/L Carbon Dioxide 21 (19-29) mEq/L BUN 38 H (8-26) mg/dL Creatinine 2.86 H (0.72-1.25) mg/dL Glucose 96 (70-99) mg/dL Calcium 8.2 L (8.6-10.8) mg/dL Total Bilirubin 1.0 (0.2-1.2) mg/dL AST 24 (5-34) Units/L ALT 21 (0-55) Units/L Alkaline Phosphatase 83 (38-126) Units/L Albumin 2.4 L (3.5-5.0) g/dL - VTE Documentation of Mechanical Device: Intermittent pneumatic compression device Consult Discharge Plan - Plan Referrals: [facility] [Outside]
--- NOTE | 2016-06-02 11:29 | Internal Med Progress Note ---
Date of Encounter: 06/02/16 Time of Encounter: 11:27 - Assessment and plan (1) Acute diverticulitis Current Visit: Yes Status: Acute Assessment and plan: Mr. Morgan was transferred from the [facility] with acute diverticulitis associated with microperforation. He continues to have LLQ pain. General surgery is involved, will contonue with CLD and iv antibiotics. Plan: - Continue Cipro and Flagyl via IV - Tylenol 650 q6hrs PRN for fever/pain - General surgery advancing diet to clear liquids. - Resume IV NS at 125ml/hr. (2) DVT prophylaxis Current Visit: Yes Status: Acute Assessment and plan: Heparin 5000 units SQ Q12hrs. (3) CKD (chronic kidney disease) Current Visit: Yes Status: Chronic Assessment and plan: Patient admitted with creatinine of 2.50, with no previous creatinines to compare. Patient states he has a history of CKD. He has also had poor intake for 4 days and acute diverticulitis. Plan: - Resume IV rehydration - Monitor volume status. - Monitor renal function with am labs. - Losartan held. - Avoid nephrotoxic medications and renally dose medications. Avoid NSAIDs. Qualifiers: Chronic kidney disease stage: stage 3 (moderate) Qualified Code(s): N18.3 - Chronic kidney disease, stage 3 (moderate) - Time Spent With Patient 25 - 35 minutes - Subjective Interval history: The patient was seen and examined during rounds. He still complaining of left lower quadrant pain, which is the same as yesterday. Denies vomiting. - Constitutional Vitals: Temp Pulse Resp BP Pulse Ox 98.4 F 69 15 152/58 95 06/02/16 10:51 06/02/16 10:51 06/02/16 10:51 06/02/16 10:51 06/02/16 10:51 General appearance: Present: A&O X 3, pleasant, no acute distress, obese, answers questions appropriately - Head Head exam: Present: atraumatic, normocephalic - Eye Eye exam: Present: PERRL, conjuntiva pink, sclera anicteric Pupils: Present: PERRL - Neck Neck exam general surgery: Present: supple, trachea midline. Absent: lymphadenopathy - Respiratory Respiratory exam: Present: CTAB. Absent: accessory muscle use, rales, rhonchi, wheezes - Cardiovascular Cardiovascular exam: Present: RRR, +S1, +S2. Absent: diastolic murmur, gallop, rubs, systolic murmur - GI/Abdominal GI/Abdominal exam: Present: normal bowel sounds, soft. Absent: distended, tenderness Additional comments: tenderness upon palpation of LLQ - Extremities Exam Extremities exam: Present: warm, radial pulses palpable and symetrical. Absent : calf tenderness, cyanotic, pedal edema - Neurological Exam Neurological exam: Present: CN II-XII intact, oriented X3, no focal deficits. Absent: pronater drift, facial droop, speech deficit - Skin Skin exam: Present: dry, intact Internal Medicine: Result - Labs CBC & Chem 7: 06/02/16 04:29 06/02/16 04:29 Labs: Short CBC 06/02/16 Range/Units 04:29 WBC 8.3 (4.3-11.1) K/mcL Hgb 10.8 L (12.9-16.9) g/dL Hct 31.8 L (37.5-50.1) % Plt Count 134 L (140-400) K/mcL Neutrophils # 5.4 (1.6-8.9) K/mcL BMP 06/02/16 04:29 Sodium 130 L Potassium 3.6 Chloride 102 Carbon Dioxide 21 BUN 38 H Creatinine 2.86 H Glucose 96 Calcium 8.2 L Liver Function 06/02/16 Range/Units 04:29 Total Bilirubin 1.0 (0.2-1.2) mg/dL AST 24 (5-34) Units/L ALT 21 (0-55) Units/L Alkaline Phosphatase 83 (38-126) Units/L Albumin 2.4 L (3.5-5.0) g/dL - ABG Interpretation ABG results: PT/INR, D-dimer PT 17.3 Seconds (9.4-12.1) H 05/31/16 16:21 - VTE Documentation of Mechanical Device: Intermittent pneumatic compression device Consult Discharge Plan - Plan Referrals: [facility] [Outside]
[2016-06-02] MEDS: 0.9 % Sodium Chloride 1,000 ML IVC SCH (11:37)
[2016-06-03] MEDS: MetroNIDAZOLE 500 MG/100 ML 500 MG/100 ML BAG IVPB SCH ×2 (00:12→08:27)
[2016-06-03] MEDS: 0.9 % Sodium Chloride 1,000 ML IVC SCH ×2 (00:12→08:37)
[2016-06-03 04:33] LABS: Basophils % 0.6 %; Eosinophils # 0.6 K/mcL (0.0-0.6); Eosinophils % 9.3 %; Hemoglobin 10.5 g/dL (12.9-16.9); Immature Granulocytes % 0.3 % (0-4); Lymphocytes # 1.6 K/mcL (0.6-4.6); Lymphocytes % 23.3 %; Mean Corpuscular HGB Conc 33.9 g/dL (31.6-35.5); Mean Corpuscular Hemoglobin 29.9 pg (28.0-33.3); Mean Corpuscular Volume 88.3 fL (83.0-100.0); Mean Platelet Volume 10.2 fL (9.4-12.4); Monocytes # 0.9 K/mcL (0.0-1.3); Monocytes % 12.8 %; Neutrophils # 3.7 K/mcL (1.6-8.9); Platelet Count 159 K/mcL (140-400); Red Blood Count 3.51 M/mcL (4.19-5.50); Red Cell Distribution Width 14.4 % (11.5-14.5); Segmented Neutrophils % 53.7 %
[2016-06-03 04:45] LABS: Calcium 8.2 mg/dL (8.6-10.8); Potassium 3.5 mEq/L (3.5-4.5)
[2016-06-03] MEDS: *HR* Morphine 2 MG/ML SYRINGE IVP PRN (04:54)
[2016-06-03] MEDS: *HR* Heparin 5,000 UNIT/ML VIAL SQ SCH (06:50)
[2016-06-03] MEDS: Metoprolol XL (24 HR) Succ 50 MG TAB.ER.24H PO SCH (08:27)
[2016-06-03] MEDS: amLODIPine 5 MG TABLET PO SCH (08:27)
[2016-06-03] MEDS: Aspirin 81 MG TAB.CHEW PO SCH (08:27)
[2016-06-03] MEDS: Levothyroxine 25 MCG TABLET PO SCH (08:27)
[2016-06-03] MEDS: Pantoprazole 40 MG VIAL IVP SCH (08:27)
--- NOTE | 2016-06-03 10:35 | General Surgery Progress Note ---
Date of Encounter: 06/03/16 Time of Encounter: 10:20 - Assessment and Plan (1) Acute diverticulitis Current Visit: Yes Status: Acute Continue IV antibiotics. We will continue with clear liquid diet. He still has involuntary guarding in the left lower quadrant. He is not ready for transition to oral antibiotics. 06/03/2016. The patient has made significant improvement. At this point I would recommend transitioning to oral antibiotics and discharged home. He can be given Percocet 5 pain Was for breakthrough pain. It is essential that he remain on Metamucil twice a day [facility] (2) CKD (chronic kidney disease) Current Visit: Yes Status: Chronic The patient has chronic renal failure. The creatinine worsened once the IV fluids were discontinued. We will plan to restart IV fluids at 125 mL/h and follow the BUN/creatinine. 06/03/2016. Chronic renal failure improved on IV hydration. He is to maintain hydration at home. Qualifiers: Chronic kidney disease stage: stage 3 (moderate) Qualified Code(s): N18.3 - Chronic kidney disease, stage 3 (moderate) Subjective Narrative: The patient feels much better. He has previously had colon resection for diverticulitis. He now has a recurrent bout of diverticulitis. He had some left lower quadrant abdominal pain with a bowel movement. His white blood cell count is normalized. He is not having any temperatures. His abdominal pain is improved. At this point I think is completely reasonable to discharge him to home on oral antibiotics for 10 days. I would recommend ciprofloxacin and Flagyl. I would recommend Percocet 5 pain tablets for any breakthrough pain. He is to be maintained on twice a day Metamucil. Objective Vital Signs - Last 8 Hours Temp Pulse Resp BP Pulse Ox 06/03/16 06:38 97.7 F 65 15 145/65 97 06/03/16 04:46 98.2 F 64 12 148/68 96 Intake and Output 06/02/16 06/03/16 06/03/16 23:59 07:59 15:59 Intake Total 1620 / 1620 1220 / 1220 440 / 440 Output Total 1775 / 1775 300 / 300 Balance 1620 / 1620 -555 / -555 140 / 140 Intake: IV Fluids 1200 / 1200 1100 / 1100 200 / 200 0.9 % Sodium Chloride 1, 1000 / 1000 800 / 800 200 / 200 000 ML @ 125 mls/hr IVC . Q8H [facility] Rx#:[id number] Cipro 400 MG/200 ML 400 200 / 200 mg In 200 ml @ 200 mls/hr IVPB Q24H [facility] Rx#: [id number] Flagyl 500 MG/100 ML 500 200 / 200 100 / 100 mg In 100 ml @ 100 mls/hr IVPB Q8HR [facility] Rx#: [id number] Oral 420 / 420 120 / 120 240 / 240 Output: Urine 1775 / 1775 300 / 300 Other: Meal Breakfast Stool Size Small Stool Consistency formed # Bowel Movements 1 0 Weight 83.189 kg Patient Weight 06/03/16 23:59 Weight 83.189 kg - General physical appearance well developed, well nourished - Respiratory normal expansion, normal respiratory effort, clear to percussion, clear to auscultation - Cardiovascular Cardiovascular exam: Present: RRR, no murmurs/rubs/gallops - Abdomen Abdomen: Present: bowel sounds present, soft, non tender - Neurologic normal coordination, normal sensation - Psychiatric oriented to time, oriented to person, oriented to place, speech is normal, memory intact - Labs 06/03/16 04:15 06/03/16 04:15 Diabetes panel 06/03/16 Range/Units 04:15 Sodium 133 L (136-145) mEq/L Potassium 3.5 (3.5-4.5) mEq/L Chloride 105 (98-109) mEq/L Carbon Dioxide 22 (19-29) mEq/L BUN 27 H D (8-26) mg/dL Creatinine 2.50 H (0.72-1.25) mg/dL Glucose 93 (70-99) mg/dL Calcium 8.2 L (8.6-10.8) mg/dL Calcium panel 06/03/16 Range/Units 04:15 Calcium 8.2 L (8.6-10.8) mg/dL Pituitary panel 06/03/16 Range/Units 04:15 Sodium 133 L (136-145) mEq/L Potassium 3.5 (3.5-4.5) mEq/L Chloride 105 (98-109) mEq/L Carbon Dioxide 22 (19-29) mEq/L BUN 27 H D (8-26) mg/dL Creatinine 2.50 H (0.72-1.25) mg/dL Glucose 93 (70-99) mg/dL Calcium 8.2 L (8.6-10.8) mg/dL Adrenal panel 06/03/16 Range/Units 04:15 Sodium 133 L (136-145) mEq/L Potassium 3.5 (3.5-4.5) mEq/L Chloride 105 (98-109) mEq/L Carbon Dioxide 22 (19-29) mEq/L BUN 27 H D (8-26) mg/dL Creatinine 2.50 H (0.72-1.25) mg/dL Glucose 93 (70-99) mg/dL Calcium 8.2 L (8.6-10.8) mg/dL - VTE Documentation of Mechanical Device: Intermittent pneumatic compression device Consult Discharge Plan - Plan Referrals: [facility] [Outside]
[2016-06-03 10:54] VITALS: BP 154/75
--- NOTE | 2016-06-03 11:06 | Discharge Summary ---
Date of Encounter: 06/03/16 Time of Encounter: 11:03 - Discharge Diagnosis (1) Acute diverticulitis Priority: Primary Status: Acute (2) DVT prophylaxis Priority: Secondary Status: Acute (3) CKD (chronic kidney disease) Priority: Secondary Status: Chronic Qualifiers: Chronic kidney disease stage: stage 3 (moderate) Qualified Code(s): N18.3 - Chronic kidney disease, stage 3 (moderate) - Discharge Medications Prescriptions: Ciprofloxacin HCl [Cipro] 500 mg PO Q12H 5 Days MetroNIDAZOLE [Flagyl] 500 mg PO TID #15 tablet Oxycodone HCl/Acetaminophen [Percocet 5-325 mg Tablet] 1 each PO Q4H #20 tablet Psyllium Husk/Aspartame [Metamucil Fiber Singles Packet] 3.4 gm PO BID PRN 7 Days PRN Reason: Constipation Home Medications: Amlodipine Besylate 10 mg PO DAILY 05/31/16 [History] Aspirin 81 mg PO DAILY 05/31/16 [History] Ezetimibe [Zetia] 10 mg PO DAILY 05/31/16 [History] Isosorbide DInitrate [Isordil] 20 mg PO TIDAC 05/31/16 [History] Levothyroxine [Synthroid] 37.5 mcg PO QAM 05/31/16 [History] Losartan [Cozaar] 25 mg PO DAILY 05/31/16 [History] Metoprolol XL (24 HR) Succ [Toprol Xl] 50 mg PO DAILY 05/31/16 [History] Ciprofloxacin HCl [Cipro] 500 mg PO Q12H 5 Days 06/03/16 [Rx] MetroNIDAZOLE [Flagyl] 500 mg PO TID #15 tablet 06/03/16 [Rx] Oxycodone HCl/Acetaminophen [Percocet 5-325 mg Tablet] 1 each PO Q4H #20 tablet 06/03/16 [Rx] Psyllium Husk/Aspartame [Metamucil Fiber Singles Packet] 3.4 gm PO BID PRN 7 Days 06/03/16 [Rx] Allergies/Adverse Reactions: Allergies lovastatin Adverse Reaction (Verified 05/31/16 16:23) unknown [facility] list simvastatin Adverse Reaction (Verified 05/31/16 16:23) unknown [facility] list ivp dye Allergy (Uncoded 05/31/16 15:44) Anaphylaxis Date of admission: 05/31/16 16:34 [facility] Discharging clinician: Harshil Regalado Anticipated date of discharge: 06/03/16 - Patient Status Disposition: Home, Self-Care Condition: Fair Functional capacity at discharge: independent ambulation Overall status at discharge: patient is back to baseline - Discharge Instructions Follow Up With: [facility] [Outside] - Diet and Activity Activity: increase activity as tolerated Diet: other (high fiber) Interval History: Mr. 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 for management of acute diverticulitis with microperforation. Patient reports of having localized, sharp LLQ abdominal pain for the last four days along with decrease in appetite. Reports of having a colonoscopy about 6-7years ago. Denies any diarrhea, constipation, blood in stool. Prior to transfer from the [facility], patient received one dose of Zosyn and was given Dilaudid in the [facility]. At this time he resting in bed and states the pain is better controlled. Reports of nausea, but denies any fever, or chills at this time. Reports of family history with brother having history of colon ca. Patient educated by Dr. Montenegro (surgery) for outpatient colonoscopy once he is recovered from this episode of diverticulitis. Social Hx: Former smoker Patient wishes to be full code. Hospital course: Mr. Morgan is a 80 year old male admitted from the [facility] due to an acute diverticulitis with microperforations. He was started on IV antibiotics and pain control medications. He responded well to IV Flagyl and IV ciprofloxacin. Initial leukocytosis has been corrected. He has an underlying chronic kidney disease which has been stable. He has tolerated diet accordingly. He was evaluated by our surgical team, they recommended discharge with outpatient follow up at the [facility], continue with by mouth antibiotics and continuity of Metamucil along with pain control with Percocet for breakthrough pain. He was explained about the plan, he expressed understanding. - Time Spent with Patient Total time spent providing and/or coordinating discharge services: Greater than 30 minutes - Constitutional Vitals: Temp Pulse Resp BP Pulse Ox 98.2 F 63 15 154/75 96 06/03/16 10:50 06/03/16 10:50 06/03/16 10:50 06/03/16 10:50 06/03/16 10:50 General appearance: Present: A&O X 3, pleasant, no acute distress, obese, answers questions appropriately - Head Head exam: Present: atraumatic, normocephalic - Eye Eye exam: Present: PERRL, conjuntiva pink, sclera anicteric Pupils: Present: PERRL - Neck Neck exam general surgery: Present: supple, trachea midline. Absent: lymphadenopathy - Respiratory Respiratory exam: Present: CTAB. Absent: accessory muscle use, rales, rhonchi, wheezes - Cardiovascular Cardiovascular exam: Present: RRR, +S1, +S2. Absent: diastolic murmur, gallop, rubs, systolic murmur - GI/Abdominal GI/Abdominal exam: Present: normal bowel sounds, soft, no peritoneal signs. Absent: distended, tenderness - Extremities Exam Extremities exam: Present: warm, radial pulses palpable and symetrical. Absent : calf tenderness, cyanotic, pedal edema - Neurological Exam Neurological exam: Present: CN II-XII intact, oriented X3, no focal deficits. Absent: pronater drift, facial droop, speech deficit - Skin Skin exam: Present: dry, intact - VTE Documentation of Mechanical Device: Intermittent pneumatic compression device
== END 2016-06-03 12:59 | disposition home or self-care (01) | DRG 392 ==
LOC: EMEROO 15:34 → 3ANU 16:34
PROVIDERS: ADMIT Internal Medicine; ATTEND Internal Medicine

== ENCOUNTER 2016-09-13 20:42 | Inpatient (IN) ==
[2016-09-13] MEDS ORDERED: Vancomycin 1,250 MG in D5% in Water 250 ML IVPB ONE (20:53)
[2016-09-13] MEDS ORDERED: *HR* Morphine 2 MG/ML SYRINGE IVP ONE (20:54)
[2016-09-13] MEDS ORDERED: Pantoprazole 80 MG in 0.9 % Sodium Chloride 50 ML IVPB ONE (20:55)
[2016-09-13] MEDS ORDERED: Acetaminophen 650 MG RECTAL SUPP RC ONE (20:56)
[2016-09-13] MEDS ORDERED: Piperacillin/Tazobactam 3.375 GM in D5% in Water (Mini-Bag+) 100 ML IVPB ONE (20:57)
[2016-09-13] MEDS ORDERED: 0.9 % Sodium Chloride 1,000 ML IVC SCH (21:00)
[2016-09-13] MEDS ORDERED: Pantoprazole 40 MG in 0.9 % Sodium Chloride Mini Bag 100 ML IVC SCH (21:00)
[2016-09-13] MEDS ORDERED: *HR* LORazepam 2 MG/ML VIAL IVP ONE (21:35)
[2016-09-13 21:40] LABS: VBG HCO3 24.7 mEq/L (21-27); VBG PH 7.41 pH Units (7.32-7.42)
[2016-09-13 21:43] LABS: Hematocrit 37.7 % (37.5-50.1); Hemoglobin 12.6 g/dL (12.9-16.9); Mean Corpuscular HGB Conc 33.4 g/dL (31.6-35.5); Mean Corpuscular Hemoglobin 29.6 pg (28.0-33.3); Mean Corpuscular Volume 88.5 fL (83.0-100.0); Mean Platelet Volume 10.1 fL (9.4-12.4); Platelet Count 144 K/mcL (140-400); Red Blood Count 4.26 M/mcL (4.19-5.50); Red Cell Distribution Width 15.3 % (11.5-14.5)
[2016-09-13 21:58] LABS: Albumin 2.8 g/dL (3.5-5.0); Albumin/Globulin Ratio 0.4 (1.1-2.2); Bilirubin,Total 1.7 mg/dL (0.2-1.2); Calcium 8.4 mg/dL (8.6-10.8); Globulin 7.1 g/dL (2.4-3.5); Potassium 4.2 mEq/L (3.5-4.5); Total Protein 9.9 g/dL (6.0-8.3)
[2016-09-13 22:04] LABS: Dohle Bodies Present (Not Present); Lymphocytes # 1.8 K/mcL (0.6-4.6); Monocytes # 0.7 K/mcL (0.0-1.3); Neutrophils # 15.7 K/mcL (1.6-8.9)
[2016-09-13] MEDS ORDERED: Tetracaine/Benzocaine/Butamben 200MG/SPRAY (100SPY/BOT) MM ONE (22:17)
--- NOTE | 2016-09-14 00:23 | Emergency Department Note ---
Disposition Clinical Impression: Lactic acidosis, Acute kidney injury, Troponin level elevated Pneumonia Qualifiers: Pneumonia type: due to unspecified organism Laterality: right Lung location: unspecified part of lung Qualified Code(s): J18.9 - Pneumonia, unspecified organism Leukocytosis Qualifiers: Leukocytosis type: unspecified Qualified Code(s): D72.829 - Elevated white blood cell count, unspecified Disposition: Admitted As Inpatient Condition: Serious General Adult HPI - General Chief complaint: ED Abdominal Pain Stated complaint: " Poss bowel obstruction" Time Seen by Provider: 09/13/16 20:47 Source: patient, EMS Limitations: no limitations - History of Present Illness HPI Narrative: 81-year-old male who presented to the [place] emergency department with concern for abdominal pain and cough. He did report hemoptysis. He has been feeling under the weather for approximately one week. Denies sick contacts. No recent hospitalizations. At the [facility] he had basic labs as well as a CT scan with IV contrast of his abdomen which showed possible small bowel obstruction with a possible transition point. There is no by mouth contrast given. They did catch the lower portions of the lung zaman and thought that there was possible pneumonia. He had a white blood cell count of 21,000. 2.25 g of Zosyn was administered at the [place]. He did have evidence of acute kidney injury. There was concern for possible sepsis in the setting of small bowel obstruction and he was ultimately sent here for further evaluation Pain Scale: 0 - Related Data Home Medications Medication Instructions Recorded Confirmed Amlodipine Besylate 10 mg PO DAILY 05/31/16 09/13/16 Aspirin 81 mg PO DAILY 05/31/16 09/13/16 Ezetimibe [Zetia] 10 mg PO DAILY 05/31/16 09/13/16 Isosorbide DInitrate [Isordil] 20 mg PO TID 05/31/16 09/13/16 Levothyroxine [Synthroid] 37.5 mcg PO QAM 05/31/16 09/13/16 Losartan [Cozaar] 25 mg PO DAILY 05/31/16 09/13/16 Metoprolol XL (24 HR) Succ [Toprol 50 mg PO DAILY 05/31/16 09/13/16 Xl] Docusate [Colace] 100 mg PO AD PRN 09/13/16 09/13/16 NIFEdipine [Afeditab Cr] 60 mg PO HS 09/13/16 09/13/16 Psyllium Husk (with Sugar) [Konsyl 3.4 gm PO BID 09/13/16 09/13/16 Psyllium Fiber Packet] Allergies Allergy/AdvReac Type Severity Reaction Status Date / Time lovastatin AdvReac unknown Verified 05/31/16 16:23 simvastatin AdvReac unknown Verified 05/31/16 16:23 ivp dye Allergy Anaphylaxis Uncoded 05/31/16 15:44 All systems ED: reviewed and negative except as stated. Past Medical History - Past Medical History Medical history: Reports: cancer, coronary artery disease, CVA, hyperlipidemia, hypertension, myocardial infarction, renal disease, thyroid disease Surgical history: Reports: carotid endarterectomy (b/l), cholecystectomy, colectomy (R resection for benign tumor removal), other (TURP) Psychiatric history: Reports: no psych history - Social History Smoking Status: Former smoker Smokeless Tobacco Status: No Alcohol use: Reports: none Drug use: Reports: none Physical Exam - General Limitations: no limitations General appearance: alert, in no apparent distress - Head Head exam: atraumatic - Eye Eye exam: Present: normal appearance - ENT ENT exam: normal exam, normal oropharynx - Neck Neck exam: Present: normal inspection - Chest Chest inspection: Present: normal inspection - Respiratory Respiratory exam: Present: normal lung sounds bilaterally - Cardiovascular Cardiovascular exam: Present: regular rate, normal rhythm - Abdominal Exam Abdominal exam: Present: tenderness Abdominal tenderness: Present: epigastrium - Expanded Lower Extremity Exam Gait: observed and normal - Back Exam Back exam: Present: normal inspection, full ROM - Neurological Exam Neurological exam: Present: alert, oriented X3, CN II-XII intact - Psychiatric Psychiatric exam: Present: normal affect, normal mood - Skin Skin exam: Present: warm, dry Course Vital Signs Temperature 100.6 F H 09/13/16 20:46 Pulse Rate 103 09/13/16 20:46 Respiratory Rate 20 09/13/16 20:46 Blood Pressure 160/77 09/13/16 20:46 O2 Sat by Pulse Oximetry 90 09/13/16 20:46 Temperature 100.6 F H 09/13/16 20:46 Pulse Rate 84 09/13/16 23:09 Respiratory Rate 16 09/14/16 00:05 Blood Pressure 152/74 09/14/16 00:05 O2 Sat by Pulse Oximetry 92 09/13/16 23:09 Oxygen Delivery Oxygen Delivery Room Air Medical Decision Making - MDM Narrative Medical decision making narrative: CBC shows improvement of white blood cell count at 18,000. He does have mild lactic acidosis. IV fluids have been provided. His blood pressure has been stable here in the emergency department. I did do a dedicated noncontrast scan of his chest to evaluate his possible pneumonia which should show significant sized pneumonia. It appears that this was community-acquired however he does have signs of severe sepsis with lactic acidosis. I did proceed to treatment with vancomycin and added 2.25 g of Zosyn for full dose. I did send velasquez cultures. KUB of the abdomen was obtained which shows ileus. I do think he possibly has a reactive ileus from underlying pneumonia and diaphragmatic irritation causing abdominal pain. He will need serial abdominal examinations and monitoring. He does have normal bowel movements and had his last bowel movement yesterday. He has had no vomiting. He will be admitted in guarded condition with a diagnosis of sepsis. He does have evidence of lateral ischemic EKG changes however no ST segment elevation. Rectal aspirin was administered. Tylenol was given for fever on arrival. I do not suspect ACS however will need trending of cardiac biomarkers. Troponins possibly elevated due to acute kidney injury as well as sepsis. Cannot exclude ACS and as such we will monitor cardiac biomarkers - Medical Records Medical records reviewed: Yes I reviewed the patient's medical records. - Lab Data Lab results reviewed: Yes I reviewed the patient's lab results. Result diagrams: 09/13/16 21:30 09/13/16 21:32 Lab Results 09/13/16 09/13/16 09/13/16 Range/Units 21:30 21:30 21:30 WBC 18.2 H (4.3-11.1) K/mcL RBC 4.26 (4.19-5.50) M/mcL Hgb 12.6 L (12.9-16.9) g/dL Hct 37.7 (37.5-50.1) % MCV 88.5 (83.0-100.0) fL MCH 29.6 (28.0-33.3) pg MCHC 33.4 (31.6-35.5) g/dL RDW 15.3 H (11.5-14.5) % Plt Count 144 (140-400) K/mcL MPV 10.1 (9.4-12.4) fL Seg Neutrophils % 80.0 % Band Neutrophils % 6.0 H (0-4) % Lymphocytes % 10.0 % Monocytes % 4.0 % Neutrophils # 15.7 H (1.6-8.9) K/mcL Lymphocytes # 1.8 (0.6-4.6) K/mcL Monocytes # 0.7 (0.0-1.3) K/mcL Dohle Bodies Present A (Not Present) VBG pH (7.32-7.42) pH Units VBG pCO2 (41-51) mmHg VBG pO2 (25-40) mmHg VBG HCO3 (21-27) mEq/L Sodium (136-145) mEq/L Potassium (3.5-4.5) mEq/L Chloride (98-109) mEq/L Carbon Dioxide (19-29) mEq/L BUN (8-26) mg/dL Creatinine (0.72-1.25) mg/dL Est GFR ( Amer) (> 60) Est GFR (Non-Af Amer) (> 60) BUN/Creatinine Ratio (6-26) Glucose (70-99) mg/dL Calculated Osmolality (280-300) Lactic Acid 2.3 H (0.5-2.2) mmol/L Calcium (8.6-10.8) mg/dL Total Bilirubin (0.2-1.2) mg/dL AST (5-34) Units/L ALT (0-55) Units/L Alkaline Phosphatase (38-126) Units/L Troponin I (0-0.03) ng/mL B-Natriuretic Peptide (0-100) pg/mL Serum Total Protein (6.0-8.3) g/dL Albumin (3.5-5.0) g/dL Globulin (2.4-3.5) g/dL Albumin/Globulin Ratio (1.1-2.2) Blood Type A POSITIVE Antibody Screen NEGATIVE 09/13/16 09/13/16 09/13/16 Range/Units 21:30 21:30 21:30 WBC (4.3-11.1) K/mcL RBC (4.19-5.50) M/mcL Hgb (12.9-16.9) g/dL Hct (37.5-50.1) % MCV (83.0-100.0) fL MCH (28.0-33.3) pg MCHC (31.6-35.5) g/dL RDW (11.5-14.5) % Plt Count (140-400) K/mcL MPV (9.4-12.4) fL Seg Neutrophils % % Band Neutrophils % (0-4) % Lymphocytes % % Monocytes % % Neutrophils # (1.6-8.9) K/mcL Lymphocytes # (0.6-4.6) K/mcL Monocytes # (0.0-1.3) K/mcL Dohle Bodies (Not Present) VBG pH 7.41 (7.32-7.42) pH Units VBG pCO2 39 L (41-51) mmHg VBG pO2 30 (25-40) mmHg VBG HCO3 24.7 (21-27) mEq/L Sodium (136-145) mEq/L Potassium (3.5-4.5) mEq/L Chloride (98-109) mEq/L Carbon Dioxide (19-29) mEq/L BUN (8-26) mg/dL Creatinine (0.72-1.25) mg/dL Est GFR ( Amer) (> 60) Est GFR (Non-Af Amer) (> 60) BUN/Creatinine Ratio (6-26) Glucose (70-99) mg/dL Calculated Osmolality (280-300) Lactic Acid (0.5-2.2) mmol/L Calcium (8.6-10.8) mg/dL Total Bilirubin (0.2-1.2) mg/dL AST (5-34) Units/L ALT (0-55) Units/L Alkaline Phosphatase (38-126) Units/L Troponin I 0.10 H* (0-0.03) ng/mL B-Natriuretic Peptide 3053 H (0-100) pg/mL Serum Total Protein (6.0-8.3) g/dL Albumin (3.5-5.0) g/dL Globulin (2.4-3.5) g/dL Albumin/Globulin Ratio (1.1-2.2) Blood Type Antibody Screen 09/13/16 Range/Units 21:32 WBC (4.3-11.1) K/mcL RBC (4.19-5.50) M/mcL Hgb (12.9-16.9) g/dL Hct (37.5-50.1) % MCV (83.0-100.0) fL MCH (28.0-33.3) pg MCHC (31.6-35.5) g/dL RDW (11.5-14.5) % Plt Count (140-400) K/mcL MPV (9.4-12.4) fL Seg Neutrophils % % Band Neutrophils % (0-4) % Lymphocytes % % Monocytes % % Neutrophils # (1.6-8.9) K/mcL Lymphocytes # (0.6-4.6) K/mcL Monocytes # (0.0-1.3) K/mcL Dohle Bodies (Not Present) VBG pH (7.32-7.42) pH Units VBG pCO2 (41-51) mmHg VBG pO2 (25-40) mmHg VBG HCO3 (21-27) mEq/L Sodium 132 L (136-145) mEq/L Potassium 4.2 (3.5-4.5) mEq/L Chloride 103 (98-109) mEq/L Carbon Dioxide 19 (19-29) mEq/L BUN 40 H (8-26) mg/dL Creatinine 2.58 H (0.72-1.25) mg/dL Est GFR ( Amer) 29 L (> 60) Est GFR (Non-Af Amer) 24 L (> 60) BUN/Creatinine Ratio 16 (6-26) Glucose 133 H (70-99) mg/dL Calculated Osmolality 286 (280-300) Lactic Acid (0.5-2.2) mmol/L Calcium 8.4 L (8.6-10.8) mg/dL Total Bilirubin 1.7 H (0.2-1.2) mg/dL AST 19 (5-34) Units/L ALT 15 (0-55) Units/L Alkaline Phosphatase 47 (38-126) Units/L Troponin I (0-0.03) ng/mL B-Natriuretic Peptide (0-100) pg/mL Serum Total Protein 9.9 H (6.0-8.3) g/dL Albumin 2.8 L (3.5-5.0) g/dL Globulin 7.1 H (2.4-3.5) g/dL Albumin/Globulin Ratio 0.4 L (1.1-2.2) Blood Type Antibody Screen - Radiology Data Radiology results reviewed: Yes I reviewed the patient's radiology results. Critical Care Time Total Critical Care Time: 31 Attestation: I spent greater than 31 minutes of critical care time resuscitating this acutely ill gentleman suffering from sepsis. Critical care time was excluding billable procedures.
[2016-09-14] MEDS ORDERED: Ondansetron 4 MG/2 ML VIAL IVP PRN (02:45)
[2016-09-14] MEDS ORDERED: Acetaminophen 325 MG TABLET PO PRN (02:45)
[2016-09-14] MEDS ORDERED: Naloxone 0.4 MG/ML INJ IVP PRN (02:45)
--- NOTE | 2016-09-14 02:59 | Internal Med History&Physical ---
Date of Encounter: 09/14/16 Time of Encounter: 02:20 Assessment and Plan (1) Pneumonia Current visit: Yes Status: Acute Patient presented with cough, fever and noted to have leukocytosis and bandemia , mild lactic acidosis, CT chest shows significant RLL consolidation; start IV hydration and IV antibiotics- Levaquin for now; received a dose of 4.5g Zosyn and Vancomycin in ER; supportive care and supplemental O2; f/up blood cultures and send urine for Legionella and strep pneumoniae Ag; repeat lactic acid level; Qualifiers: Pneumonia type: due to unspecified organism Laterality: right Lung location: lower lobe of lung Qualified Code(s): J18.1 - Lobar pneumonia, unspecified organism (2) Severe sepsis Current visit: Yes Status: Acute secondary to Pneumonia; continue IV hydration and antibiotics; f/up blood cultures. Monitor vitals and lactic acid levels closely. Troponin leak likely due to demand ischemia from underlying infection; continue Telemetry monitoring and cycle Troponins; high risk for complications; (3) Ileus Current visit: Yes Status: Acute likely due to underlying infection. Supportive care and diet as tolerated; monitor closely; less likely SBO, bowel sounds normal and reported bowel movements at home; (4) CKD (chronic kidney disease) Current visit: Yes Status: Chronic serum creatinine noted to be at baseline; dose antibiotics per current GFR and avoid new nephrotoxic agents; Qualifiers: Chronic kidney disease stage: stage 4 (severe) Qualified Code(s): N18.4 - Chronic kidney disease, stage 4 (severe) (5) Hypertension Current visit: Yes Status: Chronic Will hold antihypertensives for now except Metoprolol; monitor BP closely; Qualifiers: Hypertension type: essential hypertension Qualified Code(s): I10 - Essential (primary) hypertension (6) Hyperlipidemia Current visit: Yes Status: Chronic Qualifiers: Hyperlipidemia type: unspecified Qualified Code(s): E78.5 - Hyperlipidemia , unspecified (7) CAD (coronary artery disease) Current visit: Yes Status: Chronic continue ASA, beta-andrew and statin; hold nitrates and ARB for now. Qualifiers: Coronary Disease-Associated Artery/Lesion type: bypass graft [place] vs. transplanted heart: [place] heart Associated angina: without angina Qualified Code(s): I25.810 - Atherosclerosis of coronary artery bypass graft(s) without angina pectoris (8) Hypothyroidism Current visit: Yes Status: Chronic resume home dose of Levothyroxine; Qualifiers: Hypothyroidism type: unspecified Qualified Code(s): E03.9 - Hypothyroidism , unspecified Internal Medicine - H&P: HPI Chief complaint: Cough, dyspnea, abdominal pain Admitted From: Emergency Dept Plans for Post Hospital Care: Home History of present illness: Mr. Morgan is a 81 year old male with h/o- CAD/CABG, is transferred from [place] ER for evaluation of cough and abdominal pain. Patient is currently very drowsy likely from pain medications and is able to provide only limited history, which is obtained from review of previous records and ER notes. Patient presented with c/o- diffuse moderate-severe abdominal pain that started yesterday, gradual onset, nonradiating, not associated with nausea, vomiting or diarrhea. His last bowel movement was 1-2 days ago per him. He cannot give further history regarding his pain. On further questioning, he does admit to having a 1-month h/o- dry cough, gradually progressive, associated with shortness of breath. ER notes also indicate possible hemoptysis and weakness, subjective chills. Past Med Surg Social Fam HX - Past Medical History Medical history: cancer, coronary artery disease, CVA, hyperlipidemia, hypertension, myocardial infarction, renal disease, thyroid disease Psychiatric history: no psych history - Past Surgical History Surgical History: carotid endarterectomy, cholecystectomy, colectomy, other ( from previous records, patient cannot provide history) - Social History Smoking Status: Former smoker Smokeless Tobacco Status: No Alcohol use: none Drug use: none Occupational status: retired Current living situation: Home, With Family Activity Level: Independent ambulation Recent Out of Country Travel Within the Last 8 Weeks: No - Family History Brother Hx Family Cardiac Disorders: Yes (CAD) Hx Family Cancer: Yes (colon) - Additional Family History Additional family history: cannot be obtained at this time due to patient's mental status Internal Medicine - H&P: Meds Amlodipine Besylate 10 mg PO DAILY 05/31/16 [History] Aspirin 81 mg PO DAILY 05/31/16 [History] Ezetimibe [Zetia] 10 mg PO DAILY 05/31/16 [History] Isosorbide DInitrate [Isordil] 20 mg PO TID 05/31/16 [History] Levothyroxine [Synthroid] 37.5 mcg PO QAM 05/31/16 [History] Losartan [Cozaar] 25 mg PO DAILY 05/31/16 [History] Metoprolol XL (24 HR) Succ [Toprol Xl] 50 mg PO DAILY 05/31/16 [History] Docusate [Colace] 100 mg PO AD PRN 09/13/16 [History] NIFEdipine [Afeditab Cr] 60 mg PO HS 09/13/16 [History] Psyllium Husk (with Sugar) [Konsyl Psyllium Fiber Packet] 3.4 gm PO BID [History] Allergies lovastatin Adverse Reaction (Verified 05/31/16 16:23) unknown va list simvastatin Adverse Reaction (Verified 05/31/16 16:23) unknown va list ivp dye Allergy (Uncoded 05/31/16 15:44) Anaphylaxis All Systems PM: A 10-system review of systems was performed and is negative for pertinent findings except as documented above in the HPI. - Constitutional Constitutional: chills, fever(s) - EENT Eyes: no change in vision, no discharge, no pain, no photophobia Ears: no ear discharge, no ear pain, no tinnitus Nose, mouth and throat: no dysphagia, no nasal discharge, no neck pain, no sore throat - Cardiovascular Cardiovascular ROS IM: no chest pain, no diaphoresis, no dyspnea, no lightheadedness, no palpitations, no syncope - Respiratory Respiratory: cough, dyspnea, hemoptysis - Gastrointestinal Gastrointestinal: abdominal pain - Musculoskeletal Musculoskeletal ROS IM: no numbness, no tingling - Integumentary Integumentary IM: no rash, no unusual bruising - Neurological Neurological ROS: no confusion, no convulsions, no focal weakness, no numbness, no tingling, no tremor(s) - Hematologic/Lymphatic Hematologic/Lymphatic: no easy bruising - Constitutional Vitals: Temp Pulse Resp BP Pulse Ox 97.7 F 61 16 120/72 90 09/14/16 00:43 09/14/16 00:43 09/14/16 00:43 09/14/16 00:43 09/14/16 00:43 General appearance: Present: A&O X 2 (somnolent and somewhat confused) - Respiratory Respiratory exam: Present: decreased breath sounds (at right base, with bibasal coarse inspiratory crackles), rales. Absent: accessory muscle use, rhonchi, wheezes - Cardiovascular Cardiovascular exam: Present: RRR, +S1, +S2. Absent: diastolic murmur, gallop, rubs, systolic murmur - GI/Abdominal GI/Abdominal exam: Present: distended (slight tympanic note on percussion), normal bowel sounds, soft (nontender), no peritoneal signs. Absent: tenderness - Extremities Exam Extremities exam: Present: full ROM, warm, radial pulses palpable and symetrical. Absent: calf tenderness, cyanotic, pedal edema - Neurological Exam Neurological exam: Present: CN II-XII intact, oriented X3 (somnolent and lethargic), no focal deficits. Absent: pronater drift, facial droop, speech deficit - Skin Skin exam: Present: diaphoretic Internal Med - H&P Results - Labs CBC & Chem 7: 09/13/16 21:30 09/13/16 21:32 - EKG Data -: EKG Interpreted by Myself EKG shows normal: sinus rhythm Rate: normal - Diagnostic Studies CT scan - chest Status: image reviewed by me (massive consolidation in right lower lobe with air bronchograms)
[2016-09-14] MEDS ORDERED: Levofloxacin 500 MG/100 ML 500 MG/100 ML BAG IVPB SCH (03:00)
[2016-09-14 03:55] LABS: Basophils # 0.1 K/mcL (0.0-0.2); Basophils % 0.3 %; Hematocrit 34.2 % (37.5-50.1); Hemoglobin 11.5 g/dL (12.9-16.9); Immature Granulocytes % 5.3 % (0-4); Lymphocytes # 1.9 K/mcL (0.6-4.6); Lymphocytes % 8.6 %; Mean Corpuscular HGB Conc 33.6 g/dL (31.6-35.5); Mean Corpuscular Hemoglobin 30.1 pg (28.0-33.3); Mean Corpuscular Volume 89.5 fL (83.0-100.0); Mean Platelet Volume 10.4 fL (9.4-12.4); Monocytes # 0.9 K/mcL (0.0-1.3); Neutrophils # 17.7 K/mcL (1.6-8.9); Platelet Count 127 K/mcL (140-400); Red Blood Count 3.82 M/mcL (4.19-5.50); Red Cell Distribution Width 15.4 % (11.5-14.5); Segmented Neutrophils % 81.8 %
[2016-09-14 04:07] LABS: Magnesium 1.4 mg/dL (1.6-2.6); Phosphorous 3.6 mg/dL (2.3-4.7); Potassium 3.9 mEq/L (3.5-4.5)
[2016-09-14] MEDS: 0.9 % Sodium Chloride 1,000 ML IVC SCH ×3 (04:13→18:46)
[2016-09-14 04:40] LABS: Platelet Estimate Slight Decrease (Normal); Reactive Lymphocytes Present (Not Present)
[2016-09-14] MEDS: Levothyroxine 25 MCG TABLET PO SCH (06:30)
[2016-09-14] MEDS: *HR* Heparin 5,000 UNIT/ML VIAL SQ SCH ×2 (06:31→18:46)
[2016-09-14 08:23] LABS: Bacteria,Urine None Seen per hpf (None-Few); PH,Urine 5.5 pH Units (5.0-8.0); Protein,Urine 100 mg/dL (Neg-Trace); Specific Gravity,Urine 1.024 (1.010-1.025); Squamous Epithelial Cell,Urine Many per lpf (None-Few); Urobilinogen,Urine Normal (Normal)
[2016-09-14 08:24] LABS: Bilirubin,Urine Negative (Negative); Blood,Urine Moderate (Negative); Clarity,Urine Cloudy (Clear); Color,Urine Yellow (Yellow); Glucose,Urine (UA) Normal (Normal); Ketones,Urine Trace mg/dL (Negative); Leukocyte Esterase,Urine Negative (Negative); Nitrite,Urine Negative (Negative)
[2016-09-14 08:31] LABS: Amorphous Sediment,Urine Many (Few); Granular Casts,Urine Few per lpf (None Seen)
[2016-09-14 08:32] LABS: Mucus,Urine Few (Few)
[2016-09-14] MEDS ORDERED: ZETIA 10MG PO SCH (09:00)
[2016-09-14] MEDS: Metoprolol XL (24 HR) Succ 50 MG TAB.ER.24H PO SCH (09:03)
[2016-09-14] MEDS: Aspirin 81 MG TAB.CHEW PO SCH (09:03)
--- NOTE | 2016-09-14 10:51 | Internal Med Progress Note ---
Date of Encounter: 09/14/16 Time of Encounter: 10:48 - Assessment and plan (1) Perforation of colon Current Visit: Yes Status: Acute Assessment and plan: She with history of diverticulosis, he had an event of diverticulitis with microperforations a few months ago which was managed conservatively. History of abdominal surgery back in the 1950s. Initial complaint was abdominal pain, initially labeled as pneumonia. Please obtain a CT of the abdomen and pelvis without IV contrast and a significant amount of free air was found in the intraperitoneal area, consistent with perforation possible from the sigmoid colon. I contacted the surgeon on-call and they would evaluate the case today. I kept the patient nothing per mouth, continue with IV fluids, IV order broad- spectrum antibiotics, this point we will add Flagyl. Continue with pain control. Discussed with the family in detail, discussed with patient in detail, they expressed understanding, all the questions were answered. Patient is at this point and when clinically stable, in light of significant free air in the abdomen there is a high risk of complications. We will obtain lactic acid levels. Monitor hemoglobin and BMP this afternoon. (2) Pneumonia Current Visit: Yes Status: Acute Assessment and plan: Patient denies respiratory symptoms at this point, continue with IV antibiotics , follow cultures. Qualifiers: Pneumonia type: due to unspecified organism Laterality: right Lung location: lower lobe of lung Qualified Code(s): J18.1 - Lobar pneumonia, unspecified organism (3) CKD (chronic kidney disease) Current Visit: Yes Status: Chronic Assessment and plan: Continue monitoring kidney function tests. Avoid nephrotoxic agents. Qualifiers: Chronic kidney disease stage: stage 4 (severe) Qualified Code(s): N18.4 - Chronic kidney disease, stage 4 (severe) (4) Hypertension Current Visit: Yes Status: Chronic Qualifiers: Hypertension type: essential hypertension Qualified Code(s): I10 - Essential (primary) hypertension - Subjective Interval history: First encounter with the patient during this admission. The patient denies abdominal pain at this point, however he was complaining of left lower quadrant abdominal pain last night. Denies nausea or vomiting. His family members at bedside during this encounter, he is very pleasant. I took care of this patient a few months ago. - Constitutional Vitals: Temp Pulse Resp BP Pulse Ox 97.8 F 86 16 120/63 92 09/14/16 07:03 09/14/16 07:03 09/14/16 07:03 09/14/16 07:03 09/14/16 07:03 General appearance: Present: A&O X 3, no acute distress - Head Head exam: Present: atraumatic, normocephalic - Eye Eye exam: Present: PERRL, conjuntiva pink, sclera anicteric Pupils: Present: PERRL - Neck Neck exam general surgery: Present: supple, trachea midline. Absent: lymphadenopathy - Respiratory Respiratory exam: Present: CTAB. Absent: accessory muscle use, rales, rhonchi, wheezes - Cardiovascular Cardiovascular exam: Present: RRR, +S1, +S2. Absent: diastolic murmur, gallop, rubs, systolic murmur - GI/Abdominal GI/Abdominal exam: Present: soft, tenderness. Absent: distended Additional comments: Pain upon palpation and tenderness at the left lower quadrant level. - Extremities Exam Extremities exam: Present: warm, radial pulses palpable and symetrical. Absent : calf tenderness, cyanotic, pedal edema - Neurological Exam Neurological exam: Present: CN II-XII intact, oriented X3, no focal deficits. Absent: pronater drift, facial droop, speech deficit - Skin Skin exam: Present: dry, intact Internal Medicine: Result - Labs CBC & Chem 7: 09/14/16 03:35 09/14/16 03:35 Labs: Cardiac Enzymes 09/14/16 Range/Units 08:45 Troponin I 0.08 H* (0-0.03) ng/mL Urine 09/14/16 Range/Units 07:45 Urine Color Yellow (Yellow) Urine Clarity Cloudy A (Clear) Urine pH 5.5 (5.0-8.0) pH Units Ur Specific [place] 1.024 (1.010-1.025) Urine Protein 100 H (Neg-Trace) mg/dL Urine Glucose (UA) Normal (Normal) mg/dL - Impressions Impressions Abdomen/Pelvis CT 09/14/16 09:14 IMPRESSION: 1. New since the prior examination is a large amount of free intraperitoneal air disseminated throughout the abdomen. No definite source of perforation is identified. 2. Mild left lower quadrant pericolonic inflammatory changes which appear improved compared to the prior CT exam and could represent resolving inflammation or new post perforation changes. 3. The mid the inferior aspect of the right posterior kidney as subtle deformation and appears stable compared the prior exam wrist raises question of a possible mass or subacute subcapsular hematoma. This be further evaluated with CT renal mass protocol when clinically able. 4. Extensive vascular calcifications with a 3.2 cm infrarenal abdominal aortic aneurysm. Follow-up evaluation every 3 years is recommended. 5. Prostatomegaly with findings that may represent prior TURP. Mild bladder wall thickening suggesting outlet obstruction. Critical results were called by Dr. Christiano Amaya MD to Harshil Regalado on 09/14/2016 at 10:35 A.M.. D/ / Christiano Amaya MD / Christiano Amaya MD Interpreting Provider: Christiano Amaya MD Consult Discharge Plan - Plan [facility]errals: [facility] [Primary Care Provider] -
[2016-09-14] MEDS: MetroNIDAZOLE 500 MG/100 ML 500 MG/100 ML BAG IVPB SCH ×2 (12:17→21:50)
--- NOTE | 2016-09-14 12:38 | General Surgery Consult Note ---
Date of Encounter: 09/14/16 Time of Encounter: 12:38 Assessment and Plan (1) Perforation of colon Current Visit: Yes Status: Acute The patient states these been cyst feeling significantly better now compared to yesterday and I think that this may be in part due to the antibiotics (Levaquin and Flagyl). I recommend continue antibiotic therapy and serial abdominal exams. At this time I do not think he requires any type of surgical intervention but will watch closely. I would recommend an enema to help soften the stool that in the rectum (the patient states that he did have a significant bowel movement after the CT scan and it was very hard). Nothing by mouth except for ice chips for now. History of Present Illness Consult date: 09/14/16 Reason for consult: other (Free air) Requesting physician: Harshil Regalado History of present illness: The patient is an 81-year-old male with a past medical history significant for chronic kidney disease, coronary artery disease, and a recent diagnosis of pneumonia has been having abdominal pain since May of this year. His abdominal pain is located in the lower abdominal region and he states it is relatively was unchanged until the past week or 2. He denies any diarrhea or constipation and states that he does have a bowel movement once per day. He denies any rectal bleeding and states that because of his continued lower abdominal pain a performed a CT scan which showed evidence of free air. He is also stated that the abdominal pain had worsened to such a degree that the pain "spread throughout the entire body." He currently states that his pain is significantly improved and he denies any nausea or vomiting. His last dose of pain medication was morphine yesterday evening. Past Med Surg Social Fam HX - Past Medical History Medical history: cancer, coronary artery disease, CVA, hyperlipidemia, hypertension, myocardial infarction, renal disease, thyroid disease Psychiatric history: no psych history - Past Surgical History Surgical History: carotid endarterectomy, cholecystectomy, colectomy, other ( from previous records, patient cannot provide history) - Social History Smoking Status: Former smoker Smokeless Tobacco Status: No Alcohol use: none Drug use: none - Family History Brother Hx Family Cardiac Disorders: Yes (CAD) Hx Family Cancer: Yes (colon) Medications and Allergies Amlodipine Besylate 10 mg PO DAILY 05/31/16 [History] Aspirin 81 mg PO DAILY 05/31/16 [History] Ezetimibe [Zetia] 10 mg PO DAILY 05/31/16 [History] Isosorbide DInitrate [Isordil] 20 mg PO TID 05/31/16 [History] Levothyroxine [Synthroid] 37.5 mcg PO QAM 05/31/16 [History] Losartan [Cozaar] 25 mg PO DAILY 05/31/16 [History] Metoprolol XL (24 HR) Succ [Toprol Xl] 50 mg PO DAILY 05/31/16 [History] Docusate [Colace] 100 mg PO AD PRN 09/13/16 [History] NIFEdipine [Afeditab Cr] 60 mg PO HS 09/13/16 [History] Psyllium Husk (with Sugar) [Konsyl Psyllium Fiber Packet] 3.4 gm PO BID [History] Allergies lovastatin Adverse Reaction (Verified 05/31/16 16:23) unknown va list simvastatin Adverse Reaction (Verified 05/31/16 16:23) unknown va list ivp dye Allergy (Uncoded 05/31/16 15:44) Anaphylaxis Review of Systems All systems PM: reviewed and no additional remarkable complaints except as stated All systems PM: A 10-system review of systems was performed and is negative for pertinent findings except as documented above in the HPI. General Surgery Exam Initial Vital Signs Temp Pulse Resp BP Pulse Ox 100.6 F H 103 20 160/77 90 09/13/16 20:46 09/13/16 20:46 09/13/16 20:46 09/13/16 20:46 09/13/16 20:46 - General physical appearance well developed, well nourished, no distress - Eyes PERRL, normal ocular movement - Neck no masses, trachea midline, no lymphadectomy - Respiratory normal expansion, normal respiratory effort, other (Rhonchi noted in the bilateral lower lung zaman.) - Cardiovascular Cardiovascular exam: Present: RRR, no murmurs/rubs/gallops - Abdomen Abdomen general surgery: Present: bowel sounds present, soft, tender (noted in the LLQ and pelvis. No masses.) - Integumentary Integumentary general surgery: Present: warm and dry - Neurologic Present: CN 2-12 grossly intact, normal coordination, normal sensation - Musculoskeletal Present: other (No clubbing, cyanosis, or edema) - Psychiatric Psychiatric general surgery: Present: A&Ox3, appropriate, oriented to person, oriented to place, oriented to time Exam Initial Vital Signs Temp Pulse Resp BP Pulse Ox 100.6 F H 103 20 160/77 90 09/13/16 20:46 09/13/16 20:46 09/13/16 20:46 09/13/16 20:46 09/13/16 20:46 Results - Labs 09/14/16 15:20 09/14/16 15:20 Abnormal lab results WBC 21.6 K/mcL (4.3-11.1) H 09/14/16 03:35 RBC 3.82 M/mcL (4.19-5.50) L 09/14/16 03:35 Hgb 11.5 g/dL (12.9-16.9) L 09/14/16 03:35 Hct 34.2 % (37.5-50.1) L 09/14/16 03:35 RDW 15.4 % (11.5-14.5) H 09/14/16 03:35 Plt Count 127 K/mcL (140-400) L 09/14/16 03:35 Immature Gran % 5.3 % (0-4) H 09/14/16 03:35 Band Neutrophils % 6.0 % (0-4) H 09/13/16 21:30 Neutrophils # 17.7 K/mcL (1.6-8.9) H 09/14/16 03:35 Reactive Lymphocytes Present (Not Present) A 09/14/16 03:35 Dohle Bodies Present (Not Present) A 09/13/16 21:30 Platelet Estimate Slight Decrease (Normal) L 09/14/16 03:35 VBG pCO2 39 mmHg (41-51) L 09/13/16 21:30 Sodium 133 mEq/L (136-145) L 09/14/16 03:35 BUN 46 mg/dL (8-26) H 09/14/16 03:35 Creatinine 2.83 mg/dL (0.72-1.25) H 09/14/16 03:35 Est GFR ( Amer) 26 (> 60) L 09/14/16 03:35 Est GFR (Non-Af Amer) 22 (> 60) L 09/14/16 03:35 Glucose 117 mg/dL (70-99) H 09/14/16 03:35 Calcium 8.0 mg/dL (8.6-10.8) L 09/14/16 03:35 Magnesium 1.4 mg/dL (1.6-2.6) L 09/14/16 03:35 Total Bilirubin 1.7 mg/dL (0.2-1.2) H 09/13/16 21:32 Troponin I 0.08 ng/mL (0-0.03) H* 09/14/16 08:45 B-Natriuretic Peptide 3053 pg/mL (0-100) H 09/13/16 21:30 Serum Total Protein 9.9 g/dL (6.0-8.3) H 09/13/16 21:32 Albumin 2.8 g/dL (3.5-5.0) L 09/13/16 21:32 Globulin 7.1 g/dL (2.4-3.5) H 09/13/16 21:32 Albumin/Globulin Ratio 0.4 (1.1-2.2) L 09/13/16 21:32 Urine Clarity Cloudy (Clear) A 09/14/16 07:45 Urine Protein 100 mg/dL (Neg-Trace) H 09/14/16 07:45 Urine Ketones Trace mg/dL (Negative) H 09/14/16 07:45 Urine Blood Moderate (Negative) H 09/14/16 07:45 Urine Microscopic RBC 5-15 per hpf (0-3) H 09/14/16 07:45 Urine Microscopic WBC 5-15 per hpf (0-3) H 09/14/16 07:45 Ur Squamous Epith Cells Many per lpf (None-Few) H 09/14/16 07:45 Amorphous Sediment Many (Few) H 09/14/16 07:45 Granular Casts Few per lpf (None Seen) H 09/14/16 07:45 Ur Culture Indicated? YES (NO) A 09/14/16 07:45 All other labs normal. - Imaging CT scan - abdomen: report reviewed, image reviewed (CT scan shows evidence of free air and significant diverticulosis particularly in the descending and sigmoid colon. There is a large amount of stool present in the pelvis. No free fluid or abscesses are identified.) Consult Discharge Plan - Plan [facility]errals: [facility] [Primary Care Provider] -
[2016-09-14] MEDS ORDERED: *HR* Morphine 2 MG/ML SYRINGE IVP PRN (12:39)
[2016-09-14] MEDS ORDERED: Magnesium Sulfate 2 GM in D5% in Water 100 ML IVPB ONE (14:02)
[2016-09-14 15:32] LABS: Hematocrit 35.2 % (37.5-50.1); Hemoglobin 11.8 g/dL (12.9-16.9); Mean Corpuscular HGB Conc 33.5 g/dL (31.6-35.5); Mean Corpuscular Hemoglobin 29.9 pg (28.0-33.3); Mean Corpuscular Volume 89.1 fL (83.0-100.0); Mean Platelet Volume 10.2 fL (9.4-12.4); Platelet Count 126 K/mcL (140-400); Red Blood Count 3.95 M/mcL (4.19-5.50); Red Cell Distribution Width 15.2 % (11.5-14.5)
[2016-09-14 15:47] LABS: Potassium 4.3 mEq/L (3.5-4.5)
--- NOTE | 2016-09-14 15:59 | ECHO - Doppler Report ---
Echocardiogram Name: Sebastián Morgan Date of Study: 09/14/2016 Date: 1935 Ht: 69.0 in Medical Record#: [id number] Age: 81 Wt: 169.0 lb Gender: Male BSA: 1.92 Order #: [id number] Location: [facility] Room #: 2A48 Reading Physician: Kiley Jack DO Tattooer: Leon Roe RN Ordering Physician: Theresa Leyva MD Primary Physician: [facility] Indications: Dyspnea, Elevated Troponin Impressions: LVEF 55%. Normal left ventricular size and systolic function. There is evidence of mild diastolic dysfunction of the left ventricle. Atypical septal motion. Normal RV function on images visualized. Mild tricuspid regurgitation. No pulmonary hypertension. Left Ventricular Wall Motion: Rest Echo Findings All wall segments showed normal motion. Findings: Study Quality * Technically adequate exam. ECG Findings * Normal sinus rhythm. Possible sinus arrhythmia. Aorta * Normally sized aortic root. Left Ventricle * Atypical septal motion consistent with post-operative status. * Mild left ventricular diastolic dysfunction. * LVEF 55%. Mitral Valve * Normal mitral valve structure. * No mitral stenosis. * Mild mitral annular calcification * Trace mitral regurgitation. Aortic Valve * No aortic regurgitation. * No aortic stenosis. * Trileaflet aortic valve. Tricuspid Valve * Mild tricuspid regurgitation. * Normal tricuspid valve structure. * Estimated RA pressure is 3 mmHg. * Estimated RVSP is 30 mmHg. * No pulmonary hypertension. Pulmonic Valve * Pulmonic valve is not well visualized. * No pulmonic stenosis. * Trace pulmonic regurgitation. Pulmonary Artery * Pulmonary artery not well visualized. Right Ventricle * Normal right ventricular structure and function. Right Atrium * Normal right atrial size. Left Atrium * Severely dilated left atrium. Interatrial Septum * No evidence of PFO by color Doppler. Pericardium * There is no pericardial effusion present. IVC * Normal IVC dimensions and inspiratory collapse. History Hypertension Hypercholesteremia Years 5 Packs 1 Family History of CAD History of CAD/PTCA Myocardial Infarction Coronary Artery Bypass Graft Measurements: BP: 120/ 63 2D Normal Values RVIDd: 3.80 cm <2.7 cm IVSd: 1.20 cm 0.6 - 1.0 cm LVIDd: 4.20 cm 3.7 - 5.6 cm LVPWd: 1.20 cm 0.6 - 1.1 cm LVIDs: 2.70 cm 1.5 - 3.6 cm LA: 4.60 cm 2.0 - 4.0cm %FS: 35.70 cm >25 % LVOT Diam: 2.00 cm LA volume: 107 Mitral Valve Peak E:1.08 m/sec Peak A:1.28 m/sec E/A Ratio:0.8 Peak E' Lat Angel:9.46 cm/s Peak E' Med Angel:8.77 cm/s E/E' Lat Ratio:11.4 E/E' Med Ratio:12.3 Tricuspid Valve TV Regurg Peak Grad: 27.00mmHg TV Regurg Peak Angel: 2.59m/sec Updated by Kiley Jack on 09/14/2016 3:53:31 PM electronically signed on 09/14/2016 3:54:07 PM with status of Final Wall Motion Johnson: 1=Normal, 2=Hypokinesis, 3=Akinesis, 4=Dyskinesis, 5=Aneurysmal, 6=Hyperkinetic, X=Not Visualized (Blank)=Missing
[2016-09-14] MEDS ORDERED: MetroNIDAZOLE 500 MG/100 ML 500 MG/100 ML BAG IVPB SCH (16:00)
[2016-09-14] MEDS: Chloraseptic Spray 177 ML BOTTLE MM PRN (16:21)
[2016-09-14] MEDS: Saliva Stimulant 100ml BOTTLE PO PRN (16:21)
[2016-09-14 16:27] LABS: Lymphocytes # 3.4 K/mcL (0.6-4.6); Monocytes # 0.7 K/mcL (0.0-1.3); Neutrophils # 13.1 K/mcL (1.6-8.9); Platelet Estimate Slight Decrease (Normal)
[2016-09-14 16:28] LABS: Toxic Granulation Present (Not Present); Toxic Vacuolation Present (Not Present)
--- NOTE | 2016-09-14 17:40 | Electrocardiograph Report ---
[place] [address] Test Date: 2016-09-13 Pat Name: Sebastián Morgan Department: 102 Room: 2A48 Gender: M [employer]: Radha : 1935 Requested By: Obed Christy Order Number: [id number] Reading MD: Juan Jose Torres Measurements Intervals [place] Rate: 99 P: 62 AR: 234 QRS: -25 QRSD: 108 T: 105 QT: 329 QTc: 385 Interpretive Statements SINUS RHYTHM WITH FIRST DEGREE AV BLOCK BORDERLINE LEFT AXIS DEVIATION LEFT VENTRICULAR HYPERTROPHY AND ST-T CHANGE Electronically Signed On 09-14-2016 17:39:35 EDT by Juan Jose Torres
[2016-09-14] MEDS: Bisacodyl 10 MG RECTAL SUPPOSITORY RC SCH (18:47)
[2016-09-15] MEDS: Saliva Stimulant 100ml BOTTLE PO PRN ×2 (00:48→08:18)
[2016-09-15] MEDS: Bisacodyl 10 MG RECTAL SUPPOSITORY RC SCH (00:48)
[2016-09-15] MEDS: Chloraseptic Spray 177 ML BOTTLE MM PRN ×2 (00:48→08:18)
[2016-09-15] MEDS: MetroNIDAZOLE 500 MG/100 ML 500 MG/100 ML BAG IVPB SCH ×3 (03:59→20:23)
[2016-09-15] MEDS: Levofloxacin 750 MG/150 ML 750 MG/150 ML BAG IVPB SCH (03:59)
[2016-09-15 05:03] LABS: Basophils % 0.2 %; Eosinophils % 0.1 %; Hematocrit 31.8 % (37.5-50.1); Hemoglobin 10.7 g/dL (12.9-16.9); Immature Granulocytes % 1.7 % (0-4); Lymphocytes # 1.5 K/mcL (0.6-4.6); Mean Corpuscular HGB Conc 33.6 g/dL (31.6-35.5); Mean Corpuscular Hemoglobin 30.1 pg (28.0-33.3); Mean Corpuscular Volume 89.3 fL (83.0-100.0); Mean Platelet Volume 11.2 fL (9.4-12.4); Monocytes # 0.5 K/mcL (0.0-1.3); Monocytes % 3.1 %; Neutrophils # 12.7 K/mcL (1.6-8.9); Platelet Count 134 K/mcL (140-400); Red Blood Count 3.56 M/mcL (4.19-5.50); Red Cell Distribution Width 15.5 % (11.5-14.5); Segmented Neutrophils % 84.9 %
[2016-09-15 05:18] LABS: Calcium 8.1 mg/dL (8.6-10.8); Potassium 3.8 mEq/L (3.5-4.5)
[2016-09-15] MEDS: *HR* Heparin 5,000 UNIT/ML VIAL SQ SCH ×2 (05:40→17:33)
[2016-09-15] MEDS: Levothyroxine 25 MCG TABLET PO SCH (05:40)
[2016-09-15 05:41] LABS: Platelet Estimate Decreased (Normal); Toxic Granulation Present (Not Present); Toxic Vacuolation Present (Not Present)
[2016-09-15] MEDS: Aspirin 81 MG TAB.CHEW PO SCH (08:15)
[2016-09-15] MEDS: Metoprolol XL (24 HR) Succ 50 MG TAB.ER.24H PO SCH (08:18)
[2016-09-15] MEDS: Pantoprazole 40 MG VIAL IVP SCH (08:20)
[2016-09-15] MEDS: 0.9 % Sodium Chloride 1,000 ML IVC SCH ×2 (08:22→20:24)
--- NOTE | 2016-09-15 08:56 | General Surgery Progress Note ---
Date of Encounter: 09/17/16 Time of Encounter: 07:00 - Assessment and Plan (1) Perforation of colon Current Visit: Yes Status: Acute Patient reports recent diagnosis of pneumonia and having abdominal pain since May the had increased over the past 2 weeks. Patient reports regular bowel movements daily without rectal bleeding or painful defecation. Because of continued abdominal pain CT scan of the abdomen was performed. Perforation of the colon was evidenced by free air. Patient has been tolerating his ice chips very well. Patient has been ambulating daily. Patient reports significant resolution of bloated sensation and hard stool after receiving the enema yesterday and his stool has been softer. CT scan of abdomen and pelvis without IV or oral contrast on 09/14/16 demonstrated large amount of free intraperitoneal air throughout the abdomen without a definite source of perforation. Diverticulosis of left ivanna-colonic and sigmoid region. On examination: Patient is a very pleasant alert oriented 3, abdominal tenderness noted in the left lower quadrant and periumbilical/pelvic region, no rebound rigidity or guarding/peritoneal signs. Nonsurgical abdomen. Vital signs stable. Nonfocal neurologic exam. Plan: Advanced to full liquid diet Continue IV antibiotics: Levaquin and Flagyl Serial abdominal exams Tap water enemas 2 today Continue to encourage ambulation May consider Repeat CT scan within the next 2 days (Saturday09/17/16) Subjective Patient reports: no new complaints, pain is less, voiding w/o difficulty, flatus , bowel movement, afebrile Narrative: Patient was seen and examined. He is tolerating his ice chips well. Patient denies nausea. Patient reports flatness and bowel movements after receiving the enema yesterday. Patient has been up ambulating about the room and down the hallway. He states that his belly feels a little bit better although he still has some left lower quadrant pain that is mild with tenderness to palpation. Objective Vital Signs - Last 8 Hours Temp Pulse Resp BP Pulse Ox 09/15/16 06:40 97.7 F 77 16 143/68 95 09/15/16 03:34 97.6 F 71 13 136/62 94 Intake and Output 09/14/16 09/15/16 09/15/16 23:59 07:59 15:59 Intake Total 900 / 900 310 / 310 1000 / 1000 Balance 900 / 900 310 / 310 1000 / 1000 Intake: IV Fluids 900 / 900 250 / 250 1000 / 1000 0.9 % Sodium Chloride 1, 800 / 800 1000 / 1000 000 ML @ 100 mls/hr IVC . Q10H [facility] Rx#:[id number] Levaquin Premix 750mg/150 150 / 150 mL 750 mg In 150 ml @ 100 mls/hr IVPB Q48H [facility] Rx#:[id number] Flagyl Premix 500 MG/100 100 / 100 100 / 100 ML 500 mg In 100 ml @ 100 mls/hr IVPB Q8H [facility] Rx#: [id number] Oral 60 / 60 Other: # Voids 1 # Bowel Movements 1 Weight 78.2 kg Patient Weight 09/15/16 23:59 Weight 78.2 kg - General physical appearance well developed, well nourished, no distress, other (Patient was sleeping initially and awoke with a smile. Very pleasant gentleman.) - Eyes PERRL, normal ocular movement - ENT normal pinna, normal nares, normal mucosa, atraumatic, normocephalic, CN 2-12 grossly intact - Neck Neck exam: trachea midline, no venous distension - Respiratory normal expansion, normal respiratory effort, other (Bilateral rhonchi lower lung zaman) - Cardiovascular Cardiovascular exam: Present: RRR, no murmurs/rubs/gallops. Absent: JVD - Abdomen Abdomen: Present: bowel sounds present, soft, tender (Left lower quadrant and periumbilical). Absent: masses, guarding, rebound, rigid - Integumentary no rash, no abnormal pigmentation - Neurologic CN 2-12 grossly intact, normal sensation - Musculoskeletal normal posture - Psychiatric oriented to time, oriented to person, oriented to place, speech is normal - Labs 09/16/16 04:35 09/16/16 04:35 Diabetes panel 09/14/16 09/15/16 Range/Units 15:20 04:16 Sodium 132 L 133 L (136-145) mEq/L Potassium 4.3 3.8 (3.5-4.5) mEq/L Chloride 105 107 (98-109) mEq/L Carbon Dioxide 19 17 L (19-29) mEq/L BUN 57 H 64 H (8-26) mg/dL Creatinine 2.83 H 2.81 H (0.72-1.25) mg/dL Glucose 87 82 (70-99) mg/dL Calcium 8.0 L 8.1 L (8.6-10.8) mg/dL Calcium panel 09/14/16 09/15/16 Range/Units 15:20 04:16 Calcium 8.0 L 8.1 L (8.6-10.8) mg/dL Pituitary panel 09/14/16 09/15/16 Range/Units 15:20 04:16 Sodium 132 L 133 L (136-145) mEq/L Potassium 4.3 3.8 (3.5-4.5) mEq/L Chloride 105 107 (98-109) mEq/L Carbon Dioxide 19 17 L (19-29) mEq/L BUN 57 H 64 H (8-26) mg/dL Creatinine 2.83 H 2.81 H (0.72-1.25) mg/dL Glucose 87 82 (70-99) mg/dL Calcium 8.0 L 8.1 L (8.6-10.8) mg/dL Adrenal panel 09/14/16 09/15/16 Range/Units 15:20 04:16 Sodium 132 L 133 L (136-145) mEq/L Potassium 4.3 3.8 (3.5-4.5) mEq/L Chloride 105 107 (98-109) mEq/L Carbon Dioxide 19 17 L (19-29) mEq/L BUN 57 H 64 H (8-26) mg/dL Creatinine 2.83 H 2.81 H (0.72-1.25) mg/dL Glucose 87 82 (70-99) mg/dL Calcium 8.0 L 8.1 L (8.6-10.8) mg/dL Consult Discharge Plan - Plan [facility]errals: [facility] [Primary Care Provider] - - Attending Attestation I examined this patient and my medical decision-making was reviewed with the MANAGER OF SCHOOL/PA/Advanced Practice Nurse/Resident Physician. I agree with the documented findings, disposition and treatment plan as described except to the extent set forth below. Review the physical examination and assessment with the internal audit consultant present. Patient has lower abdominal discomfort similar to previous day. Positive bowel movements 2 but states that it was hard in nature. No nausea or vomiting. Positive tympany and mild pain to palpation in the lower abdomen. WBC is decreasing. Will allow for clearance for today and continue with IV antibiotics. Agree with consideration for repeat CT within the next 2 days.
[2016-09-15] MEDS ORDERED: ZETIA 10 MG PO SCH (09:00)
--- NOTE | 2016-09-15 10:38 | General Surgery Progress Note ---
Date of Encounter: 09/15/16 Time of Encounter: 10:35 - Assessment and Plan (1) Perforation of colon Current Visit: Yes Status: Acute The patient states these been cyst feeling significantly better now compared to yesterday and I think that this may be in part due to the antibiotics (Levaquin and Flagyl). I recommend continue antibiotic therapy and serial abdominal exams. At this time I do not think he requires any type of surgical intervention but will watch closely. I would recommend an enema to help soften the stool that in the rectum (the patient states that he did have a significant bowel movement after the CT scan and it was very hard). Nothing by mouth except for ice chips for now. Subjective Patient reports: no new complaints (He states he continues to have lower abdominal pain. No nausea/vomiting. Positive BM-hard.) Objective Vital Signs - Last 8 Hours Temp Pulse Resp BP Pulse Ox 09/15/16 06:40 97.7 F 77 16 143/68 95 09/15/16 03:34 97.6 F 71 13 136/62 94 Intake and Output 09/14/16 09/15/16 09/15/16 23:59 07:59 15:59 Intake Total 900 / 900 310 / 310 1000 / 1000 Balance 900 / 900 310 / 310 1000 / 1000 Intake: IV Fluids 900 / 900 250 / 250 1000 / 1000 0.9 % Sodium Chloride 1, 800 / 800 1000 / 1000 000 ML @ 100 mls/hr IVC . Q10H [facility] Rx#:[id number] Levaquin Premix 750mg/150 150 / 150 mL 750 mg In 150 ml @ 100 mls/hr IVPB Q48H [facility] Rx#:[id number] Flagyl Premix 500 MG/100 100 / 100 100 / 100 ML 500 mg In 100 ml @ 100 mls/hr IVPB Q8H [facility] Rx#: [id number] Oral 60 / 60 Other: # Voids 1 # Bowel Movements 1 Weight 78.2 kg Patient Weight 09/15/16 23:59 Weight 78.2 kg - Labs 09/15/16 04:16 09/15/16 04:16 Diabetes panel 09/14/16 09/15/16 Range/Units 15:20 04:16 Sodium 132 L 133 L (136-145) mEq/L Potassium 4.3 3.8 (3.5-4.5) mEq/L Chloride 105 107 (98-109) mEq/L Carbon Dioxide 19 17 L (19-29) mEq/L BUN 57 H 64 H (8-26) mg/dL Creatinine 2.83 H 2.81 H (0.72-1.25) mg/dL Glucose 87 82 (70-99) mg/dL Calcium 8.0 L 8.1 L (8.6-10.8) mg/dL Calcium panel 09/14/16 09/15/16 Range/Units 15:20 04:16 Calcium 8.0 L 8.1 L (8.6-10.8) mg/dL Pituitary panel 09/14/16 09/15/16 Range/Units 15:20 04:16 Sodium 132 L 133 L (136-145) mEq/L Potassium 4.3 3.8 (3.5-4.5) mEq/L Chloride 105 107 (98-109) mEq/L Carbon Dioxide 19 17 L (19-29) mEq/L BUN 57 H 64 H (8-26) mg/dL Creatinine 2.83 H 2.81 H (0.72-1.25) mg/dL Glucose 87 82 (70-99) mg/dL Calcium 8.0 L 8.1 L (8.6-10.8) mg/dL Adrenal panel 09/14/16 09/15/16 Range/Units 15:20 04:16 Sodium 132 L 133 L (136-145) mEq/L Potassium 4.3 3.8 (3.5-4.5) mEq/L Chloride 105 107 (98-109) mEq/L Carbon Dioxide 19 17 L (19-29) mEq/L BUN 57 H 64 H (8-26) mg/dL Creatinine 2.83 H 2.81 H (0.72-1.25) mg/dL Glucose 87 82 (70-99) mg/dL Calcium 8.0 L 8.1 L (8.6-10.8) mg/dL Consult Discharge Plan - Plan Referrals: [facility] [Primary Care Provider] -
--- NOTE | 2016-09-15 17:07 | Internal Med Progress Note ---
Date of Encounter: 09/15/16 Time of Encounter: 10:55 - Assessment and plan (1) Perforation of colon Current Visit: Yes Status: Acute Assessment and plan: Patient with history of diverticulosis, he had an event of diverticulitis with microperforations a few months ago which was managed conservatively. History of abdominal surgery back in the 1950s. Initial complaint was abdominal pain, initially labeled as pneumonia. A CT of the abdomen and pelvis without IV contrast and a significant amount of free air was found in the intraperitoneal area, consistent with perforation possible from the sigmoid colon. Currently on broad-spectrum antibiotics, levaquin and Flagyl. Continue with pain control. Doing clinically better, surgery n board, diet has been advanced. Patient is at this point and when clinically stable, in light of significant free air in the abdomen there is a high risk of complications. We will monitor kidney function tests and electrolytes tomorrow in a.m. Recommendations the surgical team the patient might benefit from a repeat CAT scan Saturday for further evaluation. (2) Pneumonia Current Visit: Yes Status: Acute Assessment and plan: Patient denies respiratory symptoms at this point, continue with IV antibiotics , strep pneumo positive, continue with Levaquin. Qualifiers: Pneumonia type: due to unspecified organism Laterality: right Lung location: lower lobe of lung Qualified Code(s): J18.1 - Lobar pneumonia, unspecified organism (3) CKD (chronic kidney disease) Current Visit: Yes Status: Chronic Qualifiers: Chronic kidney disease stage: stage 4 (severe) Qualified Code(s): N18.4 - Chronic kidney disease, stage 4 (severe) (4) Hypertension Current Visit: Yes Status: Chronic Qualifiers: Hypertension type: essential hypertension Qualified Code(s): I10 - Essential (primary) hypertension - Subjective Interval history: The patient denies abdominal pain at this point, denies nausea or vomiting. Had bowel movements today and yesterday. - Constitutional Vitals: Temp Pulse Resp BP Pulse Ox 97.9 F 81 16 155/75 96 09/15/16 16:34 09/15/16 16:34 09/15/16 16:34 09/15/16 16:34 09/15/16 16:34 General appearance: Present: A&O X 3, no acute distress - Head Head exam: Present: atraumatic, normocephalic - Eye Eye exam: Present: PERRL, conjuntiva pink, sclera anicteric Pupils: Present: PERRL - Neck Neck exam general surgery: Present: supple, trachea midline. Absent: lymphadenopathy - Respiratory Respiratory exam: Present: CTAB. Absent: accessory muscle use, rales, rhonchi, wheezes - Cardiovascular Cardiovascular exam: Present: RRR, +S1, +S2. Absent: diastolic murmur, gallop, rubs, systolic murmur - GI/Abdominal GI/Abdominal exam: Present: normal bowel sounds, soft, no peritoneal signs. Absent: distended, tenderness - Extremities Exam Extremities exam: Present: warm, radial pulses palpable and symetrical. Absent : calf tenderness, cyanotic, pedal edema - Neurological Exam Neurological exam: Present: CN II-XII intact, oriented X3, no focal deficits. Absent: pronater drift, facial droop, speech deficit - Skin Skin exam: Present: dry, intact Internal Medicine: Result - Labs CBC & Chem 7: 09/15/16 04:16 09/15/16 04:16 Labs: Short CBC 09/15/16 Range/Units 04:16 WBC 15.0 H (4.3-11.1) K/mcL Hgb 10.7 L (12.9-16.9) g/dL Hct 31.8 L (37.5-50.1) % Plt Count 134 L (140-400) K/mcL Neutrophils # 12.7 H (1.6-8.9) K/mcL BMP 09/15/16 04:16 Sodium 133 L Potassium 3.8 Chloride 107 Carbon Dioxide 17 L BUN 64 H Creatinine 2.81 H Glucose 82 Calcium 8.1 L Cardiac Enzymes 09/14/16 Range/Units 20:30 Troponin I 0.06 H* (0-0.03) ng/mL - Impressions Impressions KUB X-Ray 09/15/16 08:14 IMPRESSION: Loops of minimally prominent small bowel in the abdomen, improved since the prior study. Findings may be related to ileus. No evidence of pneumoperitoneum. D/ / Josh Andre MD / Josh Andre MD Interpreting Provider: Josh Andre MD Consult Discharge Plan - Plan [facility]errals: [facility] [Primary Care Provider] -
[2016-09-16 04:50] LABS: Basophils % 0.3 %; Eosinophils % 0.4 %; Hematocrit 30.5 % (37.5-50.1); Hemoglobin 10.2 g/dL (12.9-16.9); Immature Granulocytes % 0.6 % (0-4); Lymphocytes # 1.3 K/mcL (0.6-4.6); Lymphocytes % 13.3 %; Mean Corpuscular HGB Conc 33.4 g/dL (31.6-35.5); Mean Corpuscular Hemoglobin 29.6 pg (28.0-33.3); Mean Corpuscular Volume 88.4 fL (83.0-100.0); Mean Platelet Volume 10.3 fL (9.4-12.4); Monocytes # 0.6 K/mcL (0.0-1.3); Monocytes % 6.1 %; Platelet Count 147 K/mcL (140-400); Red Blood Count 3.45 M/mcL (4.19-5.50); Red Cell Distribution Width 15.5 % (11.5-14.5); Segmented Neutrophils % 79.3 %
[2016-09-16 05:07] LABS: Potassium 3.4 mEq/L (3.5-4.5)
[2016-09-16 05:19] LABS: Platelet Estimate Slight Decrease (Normal)
[2016-09-16] MEDS: MetroNIDAZOLE 500 MG/100 ML 500 MG/100 ML BAG IVPB SCH ×3 (05:33→22:57)
[2016-09-16] MEDS: Levothyroxine 25 MCG TABLET PO SCH (05:33)
[2016-09-16] MEDS: *HR* Heparin 5,000 UNIT/ML VIAL SQ SCH ×2 (05:34→18:01)
--- NOTE | 2016-09-16 07:15 | General Surgery Progress Note ---
Date of Encounter: 09/17/16 Time of Encounter: 07:00 - Assessment and Plan (1) Perforation of colon Current Visit: Yes Status: Acute Patient reports recent diagnosis of pneumonia and having abdominal pain since May with progressive increase over the past 2 weeks. Patient reports regular bowel movements daily without rectal bleeding or painful defecation. Due to continued abdominal pain a CT scan of the abdomen was performed. Perforation of the colon was evidenced by free air. CT scan of abdomen and pelvis without IV or oral contrast on 09/14/16 demonstrated large amount of free intraperitoneal air throughout the abdomen without a definite source of perforation. Diverticulosis of left ivanna-colonic and sigmoid region. On examination: Patient is a very pleasant alert oriented 3, abdominal tenderness most notable in the left lower quadrant, with diffuse tenderness periumbilical/pelvic region, no rebound rigidity or guarding/peritoneal signs. Nonsurgical abdomen. Nonfocal neurologic exam. Patient has been tolerating his ice chips very well. Patient has been ambulating daily. Patient reports significant resolution of bloated sensation. Vital signs notable for hypertension. With blood pressures ranging from 155-174/ 62-92. Belly pain has increased today from yesterday. Patient reports that he is continuing to have hard stools despite the enemas. Improved leukocytosis 10<15, mildly improved BUN 55<64 and creatinine 2.48<2.81. Plan: - Continue full liquid diet - Continue IV antibiotics: Levaquin and Flagyl - Serial abdominal exams - Tap water Enema x 1 today. Miralax and gatorade. - Continue to encourage ambulation - Continue pain control Repeat CT scan Saturday09/17/16. Subjective Patient reports: still having pain, tolerating liquids well, voiding w/o difficulty, flatus, bowel movement (Multiple small caliber hard stools without blood), afebrile Narrative: Patient was seen and examined. He is tolerating his liquids well. He denies nausea or vomiting. Patient has flatus and bowel movements after fleets enemas described as small and hard stools yesterday. States that he slept well. He has been up ambulating about the room and down the hallway yesterday. However, this morning he states that his belly is more tender than it was the day before. Objective Vital Signs - Last 8 Hours Temp Pulse Resp BP Pulse Ox 09/16/16 04:07 97.9 F 94 16 174/62 95 Intake and Output 09/15/16 09/15/16 09/16/16 15:59 23:59 07:59 Intake Total 1340 / 1340 1300 / 1300 Output Total 450 / 450 450 / 450 Balance 1340 / 1340 850 / 850 -450 / -450 Intake: IV Fluids 1100 / 1100 1100 / 1100 0.9 % Sodium Chloride 1, 1000 / 1000 1000 / 1000 000 ML @ 100 mls/hr IVC . Q10H [facility] Rx#:[id number] Flagyl Premix 500 MG/100 100 / 100 100 / 100 ML 500 mg In 100 ml @ 100 mls/hr IVPB Q8H [facility] Rx#: [id number] Oral 240 / 240 200 / 200 Output: Urine 450 / 450 450 / 450 Other: Percent of Meal Consumed 0% # Voids 2 Weight 79.038 kg Patient Weight 09/16/16 23:59 Weight 79.038 kg - General physical appearance well developed, well nourished, no distress - Eyes PERRL, normal ocular movement - ENT normal pinna, normal nares, normal mucosa - Neck Neck exam: no masses, trachea midline, no venous distension - Respiratory normal expansion, normal respiratory effort, other (Bilateral rhonchi lower lung zaman) - Cardiovascular Cardiovascular exam: Present: RRR, no murmurs/rubs/gallops. Absent: JVD - Abdomen Abdomen: Present: bowel sounds present, soft, tender. Absent: masses, guarding , rebound, rigid Abdominal Tenderness: LLQ (Most painful is at left lower quadrant), diffusely - Integumentary no rash, no abnormal pigmentation - Neurologic CN 2-12 grossly intact, normal coordination, normal sensation - Musculoskeletal normal posture - Psychiatric oriented to time, oriented to person, oriented to place, memory intact - Labs 09/16/16 04:35 09/16/16 04:35 Diabetes panel 09/16/16 Range/Units 04:35 Sodium 134 L (136-145) mEq/L Potassium 3.4 L (3.5-4.5) mEq/L Chloride 109 (98-109) mEq/L Carbon Dioxide 19 (19-29) mEq/L BUN 55 H (8-26) mg/dL Creatinine 2.48 H (0.72-1.25) mg/dL Glucose 84 (70-99) mg/dL Calcium 8.0 L (8.6-10.8) mg/dL Calcium panel 09/16/16 Range/Units 04:35 Calcium 8.0 L (8.6-10.8) mg/dL Pituitary panel 09/16/16 Range/Units 04:35 Sodium 134 L (136-145) mEq/L Potassium 3.4 L (3.5-4.5) mEq/L Chloride 109 (98-109) mEq/L Carbon Dioxide 19 (19-29) mEq/L BUN 55 H (8-26) mg/dL Creatinine 2.48 H (0.72-1.25) mg/dL Glucose 84 (70-99) mg/dL Calcium 8.0 L (8.6-10.8) mg/dL Adrenal panel 09/16/16 Range/Units 04:35 Sodium 134 L (136-145) mEq/L Potassium 3.4 L (3.5-4.5) mEq/L Chloride 109 (98-109) mEq/L Carbon Dioxide 19 (19-29) mEq/L BUN 55 H (8-26) mg/dL Creatinine 2.48 H (0.72-1.25) mg/dL Glucose 84 (70-99) mg/dL Calcium 8.0 L (8.6-10.8) mg/dL Consult Discharge Plan - Plan Referrals: [facility] [Primary Care Provider] - - Attending Attestation I examined this patient and my medical decision-making was reviewed with the BRANCH OFFICER/PA/Advanced Practice Nurse/Resident Physician. I agree with the documented findings, disposition and treatment plan as described except to the extent set forth below. I personally reviewed the assessment and examination with the biology intern present. Overall he states his pain has remained unchanged. Positive BM. Mild tympany, mild pain in the lower abdomen with palpation. Noted decreased WBC. Continue with IV abx. Will add miralax/gatorade to assiste with BMs and order CT for the am.
[2016-09-16] MEDS: Aspirin 81 MG TAB.CHEW PO SCH (08:05)
[2016-09-16] MEDS: Metoprolol XL (24 HR) Succ 50 MG TAB.ER.24H PO SCH (08:05)
[2016-09-16] MEDS: Pantoprazole 40 MG VIAL IVP SCH (08:05)
[2016-09-16] MEDS: 0.9 % Sodium Chloride 1,000 ML IVC SCH ×2 (09:21→10:22)
[2016-09-16] MEDS ORDERED: Polyethylene Glycol 3350 255 GM POWDER PO ONE (09:37)
[2016-09-16] MEDS ORDERED: 0.9 % Sodium Chloride 1,000 ML IVC SCH (12:21)
--- NOTE | 2016-09-16 12:24 | Internal Med Progress Note ---
Date of Encounter: 09/16/16 Time of Encounter: 09:55 - Assessment and plan (1) Perforation of colon Current Visit: Yes Status: Acute Assessment and plan: Patient with history of diverticulosis, he had an event of diverticulitis with microperforations a few months ago which was managed conservatively. History of abdominal surgery back in the 1950s. Initial complaint was abdominal pain, initially labeled as pneumonia. A CT of the abdomen and pelvis without IV contrast and a significant amount of free air was found in the intraperitoneal area, consistent with perforation possible from the sigmoid colon. Currently on broad-spectrum antibiotics, levaquin and Flagyl. Continue with pain control. Doing clinically better, surgery n board, . Clear liquid diet. We will monitor kidney function tests and electrolytes tomorrow in a.m. Will repeat CAT scan Saturday for further evaluation. (2) Pneumonia Current Visit: Yes Status: Acute Assessment and plan: Patient denies respiratory symptoms at this point, continue with IV antibiotics , strep pneumo positive, continue with Levaquin. Qualifiers: Pneumonia type: due to unspecified organism Laterality: right Lung location: lower lobe of lung Qualified Code(s): J18.1 - Lobar pneumonia, unspecified organism (3) CKD (chronic kidney disease) Current Visit: Yes Status: Chronic Assessment and plan: Continue monitoring kidney function tests. Avoid nephrotoxic agents. Qualifiers: Chronic kidney disease stage: stage 4 (severe) Qualified Code(s): N18.4 - Chronic kidney disease, stage 4 (severe) (4) Hypertension Current Visit: Yes Status: Chronic Qualifiers: Hypertension type: essential hypertension Qualified Code(s): I10 - Essential (primary) hypertension - Subjective Interval history: The patient states that having mild abdominal pain in the left lower quadrant. Denies nausea or vomiting. No fever. - Constitutional Vitals: Temp Pulse Resp BP Pulse Ox 98.4 F 62 16 161/75 95 09/16/16 07:53 09/16/16 07:53 09/16/16 07:53 09/16/16 07:53 09/16/16 07:53 General appearance: Present: A&O X 3, no acute distress - Head Head exam: Present: atraumatic, normocephalic - Eye Eye exam: Present: PERRL, conjuntiva pink, sclera anicteric Pupils: Present: PERRL - Neck Neck exam general surgery: Present: supple, trachea midline. Absent: lymphadenopathy - Respiratory Respiratory exam: Present: CTAB. Absent: accessory muscle use, rales, rhonchi, wheezes - Cardiovascular Cardiovascular exam: Present: RRR, +S1, +S2. Absent: diastolic murmur, gallop, rubs, systolic murmur - GI/Abdominal GI/Abdominal exam: Present: normal bowel sounds, soft. Absent: distended, tenderness Additional comments: Mild pain upon palpation of the left lower quadrant. - Extremities Exam Extremities exam: Present: warm, radial pulses palpable and symetrical. Absent : calf tenderness, cyanotic, pedal edema - Neurological Exam Neurological exam: Present: CN II-XII intact, oriented X3, no focal deficits. Absent: pronater drift, facial droop, speech deficit - Skin Skin exam: Present: dry, intact Internal Medicine: Result - Labs CBC & Chem 7: 09/16/16 04:35 09/16/16 04:35 Labs: Short CBC 09/16/16 Range/Units 04:35 WBC 10.1 (4.3-11.1) K/mcL Hgb 10.2 L (12.9-16.9) g/dL Hct 30.5 L (37.5-50.1) % Plt Count 147 (140-400) K/mcL Neutrophils # 8.0 (1.6-8.9) K/mcL BMP 09/16/16 04:35 Sodium 134 L Potassium 3.4 L Chloride 109 Carbon Dioxide 19 BUN 55 H Creatinine 2.48 H Glucose 84 Calcium 8.0 L Consult Discharge Plan - Plan Referrals: [facility] [Primary Care Provider] -
--- NOTE | 2016-09-16 20:12 | Electrocardiograph Report ---
[place] [id number] Test Date: 2016-09-15 Pat Name: Sebastián Morgan Department: 112 Room: 2A48 Gender: M Chemist Food: [facility] : 1935 Requested By: Harshil Regalado Order Number: [id number] Reading MD: Mason Andrea MD Measurements Intervals [place]mo Rate: 74 P: -20 MI: 192 QRS: -9 QRSD: 93 T: -17 QT: 382 QTc: 410 Interpretive Statements SINUS RHYTHM LEFT VENTRICULAR HYPERTROPHY Electronically Signed On 09-16-2016 20:10:46 EDT by Mason Andrea MD
[2016-09-17] MEDS: *HR* Heparin 5,000 UNIT/ML VIAL SQ SCH ×2 (05:51→18:22)
[2016-09-17] MEDS: Levofloxacin 750 MG/150 ML 750 MG/150 ML BAG IVPB SCH (05:52)
[2016-09-17] MEDS: Levothyroxine 25 MCG TABLET PO SCH (05:52)
[2016-09-17] MEDS: MetroNIDAZOLE 500 MG/100 ML 500 MG/100 ML BAG IVPB SCH ×3 (05:53→21:33)
[2016-09-17 06:01] LABS: Hemoglobin 10.3 g/dL (12.9-16.9); Mean Corpuscular HGB Conc 33.2 g/dL (31.6-35.5); Mean Corpuscular Hemoglobin 29.3 pg (28.0-33.3); Mean Corpuscular Volume 88.3 fL (83.0-100.0); Mean Platelet Volume 10.2 fL (9.4-12.4); Platelet Count 168 K/mcL (140-400); Red Blood Count 3.51 M/mcL (4.19-5.50); Red Cell Distribution Width 15.2 % (11.5-14.5)
[2016-09-17 06:30] LABS: Calcium 8.2 mg/dL (8.6-10.8); Potassium 3.6 mEq/L (3.5-4.5)
[2016-09-17 06:42] LABS: Eosinophils # 0.1 K/mcL (0.0-0.6); Lymphocytes # 1.8 K/mcL (0.6-4.6); Monocytes # 0.4 K/mcL (0.0-1.3); Neutrophils # 4.5 K/mcL (1.6-8.9); Platelet Estimate Normal (Normal)
[2016-09-17] MEDS: Pantoprazole 40 MG VIAL IVP SCH (08:14)
[2016-09-17] MEDS: Metoprolol XL (24 HR) Succ 50 MG TAB.ER.24H PO SCH (08:14)
[2016-09-17] MEDS: Aspirin 81 MG TAB.CHEW PO SCH (08:14)
--- NOTE | 2016-09-17 08:26 | General Surgery Progress Note ---
Date of Encounter: 09/17/16 Time of Encounter: 08:23 - Assessment and Plan (1) Perforation of colon Current Visit: Yes Status: Acute CT scan of abdomen and pelvis without IV or oral contrast on 09/14/16 demonstrated large amount of free intraperitoneal air throughout the abdomen without a definite source of perforation. Diverticulosis of left ivanna-colonic and sigmoid region. Multiple bowel movements yesterday, states his pain has improved. Abdomen is soft with mild tenderness in bilateral lower quadrants. Plan: -Plan for repeat CT today - Continue full liquid diet - Continue IV antibiotics: Levaquin and Flagyl - Serial abdominal exams - Continue to encourage ambulation - Continue pain control Subjective Narrative: The patient was seen and examined. He states that he was able to have multiple bowel movements yesterday. He states his abdominal pain has significantly improved. He is tolerating his clear liquids. Objective Vital Signs - Last 8 Hours Temp Pulse Resp BP Pulse Ox 09/17/16 07:20 97.7 F 62 16 163/75 97 09/17/16 03:41 98.1 F 73 16 164/71 95 09/17/16 01:20 97.6 F 62 16 152/70 92 Intake and Output 09/16/16 09/17/16 09/17/16 23:59 07:59 15:59 Intake Total 2260 / 2260 Output Total 800 / 800 Balance 2260 / 2260 -800 / -800 Intake: IV Fluids 100 / 100 Flagyl Premix 500 MG/100 100 / 100 ML 500 mg In 100 ml @ 100 mls/hr IVPB Q8H [facility] Rx#: [id number] Oral 2160 / 2160 Output: Urine 800 / 800 Other: Meal Dinner Percent of Meal Consumed 40% Stool Size Moderate Stool Consistency liquid Stool Color Yellow # Bowel Movements 8 Weight 79.12 kg Patient Weight 09/17/16 23:59 Weight 79.12 kg - General physical appearance well developed, well nourished, no distress, moderate pain - Eyes PERRL, normal ocular movement - ENT normal mucosa, atraumatic, normocephalic - Neck Neck exam: trachea midline - Respiratory normal expansion, normal respiratory effort, clear to auscultation - Cardiovascular Cardiovascular exam: Present: irregular rhythm - Abdomen Abdomen: Present: bowel sounds present, soft, tender Abdominal Tenderness: RLQ, LLQ - Integumentary no rash, no growths, no abnormal pigmentation - Neurologic normal coordination, normal sensation - Psychiatric oriented to time, oriented to person, oriented to place, speech is normal, memory intact - Labs 09/17/16 04:52 09/17/16 04:52 Diabetes panel 09/17/16 Range/Units 04:52 Sodium 134 L (136-145) mEq/L Potassium 3.6 (3.5-4.5) mEq/L Chloride 112 H (98-109) mEq/L Carbon Dioxide 18 L (19-29) mEq/L BUN 36 H D (8-26) mg/dL Creatinine 1.92 H (0.72-1.25) mg/dL Glucose 87 (70-99) mg/dL Calcium 8.2 L (8.6-10.8) mg/dL Calcium panel 09/17/16 Range/Units 04:52 Calcium 8.2 L (8.6-10.8) mg/dL Pituitary panel 09/17/16 Range/Units 04:52 Sodium 134 L (136-145) mEq/L Potassium 3.6 (3.5-4.5) mEq/L Chloride 112 H (98-109) mEq/L Carbon Dioxide 18 L (19-29) mEq/L BUN 36 H D (8-26) mg/dL Creatinine 1.92 H (0.72-1.25) mg/dL Glucose 87 (70-99) mg/dL Calcium 8.2 L (8.6-10.8) mg/dL Adrenal panel 09/17/16 Range/Units 04:52 Sodium 134 L (136-145) mEq/L Potassium 3.6 (3.5-4.5) mEq/L Chloride 112 H (98-109) mEq/L Carbon Dioxide 18 L (19-29) mEq/L BUN 36 H D (8-26) mg/dL Creatinine 1.92 H (0.72-1.25) mg/dL Glucose 87 (70-99) mg/dL Calcium 8.2 L (8.6-10.8) mg/dL Consult Discharge Plan - Plan [facility]errals: [facility] [Primary Care Provider] - - Attending Attestation I examined this patient and my medical decision-making was reviewed with the SHRIMP PEELING MACHINE OPERATOR/PA/Advanced Practice Nurse/Resident Physician. I agree with the documented findings, disposition and treatment plan as described except to the extent set forth below. Review the above assessment and evaluation. Patient is status post repeat CT scan which shows contrast going through to the rectum. Free air is still noted but there is no evidence of extravasation of contrast. The patient admits to less pain and has minimal pain to palpation of the lower abdomen. I think he is overall improving and will go ahead and advance his diet to full liquids. I recommended continued IV antibiotics and serial abdominal examinations.
--- NOTE | 2016-09-17 17:20 | Internal Med Progress Note ---
Date of Encounter: 09/17/16 Time of Encounter: 12:00 - Assessment and plan (1) Perforation of colon Current Visit: Yes Status: Acute Assessment and plan: Patient with history of diverticulosis, he had an event of diverticulitis with microperforations a few months ago which was managed conservatively. History of abdominal surgery back in the 1950s. Initial complaint was abdominal pain, initially labeled as pneumonia. Upon first evlauation in the mmedical floor I ordered a CT of the abdomen and pelvis without IV contrast and a significant amount of free air was found in the intraperitoneal area, consistent with perforation possible from the sigmoid colon. Currently on broad-spectrum antibiotics, levaquin and Flagyl. His leukocytosis has resolved. The patient is stable at this point. A CT of the abdomen was obtained today, no significant changes compared to prior imaging done. Continue with pain control. Doing clinically better, surgery n board, . Diet has been advanced to full liquids. We will monitor kidney function tests and electrolytes tomorrow in a.m. (2) Pneumonia Current Visit: Yes Status: Acute Assessment and plan: Patient denies respiratory symptoms at this point, continue with IV antibiotics , strep pneumo positive, continue with Levaquin. Qualifiers: Pneumonia type: due to unspecified organism Laterality: right Lung location: lower lobe of lung Qualified Code(s): J18.1 - Lobar pneumonia, unspecified organism (3) CKD (chronic kidney disease) Current Visit: Yes Status: Chronic Assessment and plan: Continue monitoring kidney function tests. Avoid nephrotoxic agents. Qualifiers: Chronic kidney disease stage: stage 4 (severe) Qualified Code(s): N18.4 - Chronic kidney disease, stage 4 (severe) (4) Hypertension Current Visit: Yes Status: Chronic Qualifiers: Hypertension type: essential hypertension Qualified Code(s): I10 - Essential (primary) hypertension - Subjective Interval history: The patient denies nausea or vomiting. No fever. Had a CT ealrier this morning. - Constitutional Vitals: Temp Pulse Resp BP Pulse Ox 97.7 F 65 16 163/72 96 09/17/16 15:45 09/17/16 15:45 09/17/16 15:45 09/17/16 15:45 09/17/16 15:45 General appearance: Present: A&O X 3, no acute distress - Head Head exam: Present: atraumatic, normocephalic - Eye Eye exam: Present: PERRL, conjuntiva pink, sclera anicteric Pupils: Present: PERRL - Neck Neck exam general surgery: Present: supple, trachea midline. Absent: lymphadenopathy - Respiratory Respiratory exam: Present: CTAB. Absent: accessory muscle use, rales, rhonchi, wheezes - Cardiovascular Cardiovascular exam: Present: RRR, +S1, +S2. Absent: diastolic murmur, gallop, rubs, systolic murmur - GI/Abdominal GI/Abdominal exam: Present: normal bowel sounds, soft. Absent: distended, tenderness Additional comments: pain upon patient on the left lower quadrant. - Extremities Exam Extremities exam: Present: warm, radial pulses palpable and symetrical. Absent : calf tenderness, cyanotic, pedal edema - Neurological Exam Neurological exam: Present: CN II-XII intact, oriented X3, no focal deficits. Absent: pronater drift, facial droop, speech deficit - Skin Skin exam: Present: dry, intact Internal Medicine: Result - Labs CBC & Chem 7: 09/17/16 04:52 09/17/16 04:52 Labs: Short CBC 09/17/16 Range/Units 04:52 WBC 6.8 (4.3-11.1) K/mcL Hgb 10.3 L (12.9-16.9) g/dL Hct 31.0 L (37.5-50.1) % Plt Count 168 (140-400) K/mcL Neutrophils # 4.5 (1.6-8.9) K/mcL BMP 09/17/16 04:52 Sodium 134 L Potassium 3.6 Chloride 112 H Carbon Dioxide 18 L BUN 36 H D Creatinine 1.92 H Glucose 87 Calcium 8.2 L - Impressions Impressions Abdomen/Pelvis CT 09/17/16 09:45 IMPRESSION: Persistent pneumoperitoneum, in keeping with perforated sigmoid diverticulitis. Inflammatory change within the pelvis has increased as compared to prior examination, without gross drainable collection. Right greater than left lower lobe airspace disease, compatible with pneumonia. Bilateral perinephric stranding is seen as well as thickening of the bladder wall. If there is clinical concern for infection, suggest correlation with urinalysis. Findings were discussed with Skyler Montenegro at 10:16 on 09/17/2016. D/ / John West MD / John West MD Interpreting Provider: John West MD Consult Discharge Plan - Plan Referrals: [facility] [Primary Care Provider] -
[2016-09-18] MEDS: Chloraseptic Spray 177 ML BOTTLE MM PRN (00:39)
[2016-09-18] MEDS: Saliva Stimulant 100ml BOTTLE PO PRN (00:39)
[2016-09-18] MEDS: Levothyroxine 25 MCG TABLET PO SCH (05:01)
[2016-09-18] MEDS: MetroNIDAZOLE 500 MG/100 ML 500 MG/100 ML BAG IVPB SCH (05:02)
[2016-09-18] MEDS: *HR* Heparin 5,000 UNIT/ML VIAL SQ SCH ×2 (05:05→17:56)
[2016-09-18 05:54] LABS: Basophils % 0.4 %; Eosinophils # 0.2 K/mcL (0.0-0.6); Eosinophils % 2.5 %; Hematocrit 31.7 % (37.5-50.1); Hemoglobin 10.8 g/dL (12.9-16.9); Immature Granulocytes % 1.2 % (0-4); Lymphocytes # 1.6 K/mcL (0.6-4.6); Lymphocytes % 22.7 %; Mean Corpuscular HGB Conc 34.1 g/dL (31.6-35.5); Mean Corpuscular Hemoglobin 29.9 pg (28.0-33.3); Mean Corpuscular Volume 87.8 fL (83.0-100.0); Mean Platelet Volume 9.8 fL (9.4-12.4); Monocytes # 0.9 K/mcL (0.0-1.3); Monocytes % 12.9 %; Neutrophils # 4.1 K/mcL (1.6-8.9); Platelet Count 171 K/mcL (140-400); Red Blood Count 3.61 M/mcL (4.19-5.50); Red Cell Distribution Width 15.5 % (11.5-14.5); Segmented Neutrophils % 60.3 %
[2016-09-18 06:10] LABS: Calcium 8.6 mg/dL (8.6-10.8); Potassium 3.9 mEq/L (3.5-4.5)
[2016-09-18] MEDS: Aspirin 81 MG TAB.CHEW PO SCH (09:42)
[2016-09-18] MEDS: Metoprolol XL (24 HR) Succ 50 MG TAB.ER.24H PO SCH (09:42)
--- NOTE | 2016-09-18 10:25 | General Surgery Progress Note ---
Date of Encounter: 09/18/16 Time of Encounter: 10:23 - Assessment and Plan (1) Perforation of colon Current Visit: Yes Status: Acute CT scan of abdomen and pelvis without IV or oral contrast on 09/14/16 demonstrated large amount of free intraperitoneal air throughout the abdomen without a definite source of perforation. Diverticulosis of left ivanna-colonic and sigmoid region. Repeat CT of the abdomen and pelvis with oral contrast on 09/17/2016: Persistent pneumoperitoneum, increase in inflammatory changes within the pelvis compared to prior, no gross drainable collection identified. Multiple bowel movements Saturday, states he has not had one in the last 24 hours. He states that he is passing gas and that pain has improved significantly. He has been tolerating full liquid diet. Denies any nausea, any other complaints Abdomen is soft with mild tenderness in bilateral lower quadrants. Plan: - Continue full liquid diet - Continue IV antibiotics: Levaquin and Flagyl - Serial abdominal exams - Continue to encourage ambulation - Continue pain control Subjective Patient reports: pain is less, tolerating liquids well, flatus, no bowel movement Narrative: The patient was seen and examined. He states that his pain is significantly improved. He is tolerating a full liquid diet. He has not had a bowel movement in the last 24 hours, however he is passing gas. He denies any nausea or any other complaints. Objective Vital Signs - Last 8 Hours Temp Pulse Resp BP Pulse Ox 09/18/16 09:45 97 09/18/16 08:19 97.3 F L 78 16 168/76 97 09/18/16 04:02 98.3 F 60 16 163/73 95 Intake and Output 09/17/16 09/18/16 09/18/16 23:59 07:59 15:59 Intake Total 580 / 580 Output Total 250 / 250 Balance 330 / 330 Intake: IV Fluids 100 / 100 Flagyl Premix 500 MG/100 100 / 100 ML 500 mg In 100 ml @ 100 mls/hr IVPB Q8H [facility] Rx#: [id number] Oral 480 / 480 Output: Urine 250 / 250 Other: Meal Dinner Percent of Meal Consumed 100% Weight 78.8 kg Patient Weight 09/18/16 23:59 Weight 78.8 kg - General physical appearance well developed, well nourished, no distress, no pain - Eyes PERRL, normal ocular movement - ENT normal pinna, normal nares, normal mucosa, atraumatic, normocephalic - Neck Neck exam: trachea midline - Respiratory normal expansion, normal respiratory effort, clear to auscultation - Cardiovascular Cardiovascular exam: Present: irregular rhythm - Abdomen Abdomen: Present: bowel sounds present, soft, tender. Absent: distended Abdominal Tenderness: RLQ, LLQ, suprapubic - Integumentary no rash, no growths, no abnormal pigmentation - Neurologic CN 2-12 grossly intact, normal coordination, normal sensation - Psychiatric oriented to time, oriented to person, oriented to place, speech is normal, memory intact - Labs 09/18/16 05:41 09/18/16 05:41 Diabetes panel 09/18/16 Range/Units 05:41 Sodium 133 L (136-145) mEq/L Potassium 3.9 (3.5-4.5) mEq/L Chloride 109 (98-109) mEq/L Carbon Dioxide 20 (19-29) mEq/L BUN 28 H (8-26) mg/dL Creatinine 1.96 H (0.72-1.25) mg/dL Glucose 97 (70-99) mg/dL Calcium 8.6 (8.6-10.8) mg/dL Calcium panel 09/18/16 Range/Units 05:41 Calcium 8.6 (8.6-10.8) mg/dL Pituitary panel 09/18/16 Range/Units 05:41 Sodium 133 L (136-145) mEq/L Potassium 3.9 (3.5-4.5) mEq/L Chloride 109 (98-109) mEq/L Carbon Dioxide 20 (19-29) mEq/L BUN 28 H (8-26) mg/dL Creatinine 1.96 H (0.72-1.25) mg/dL Glucose 97 (70-99) mg/dL Calcium 8.6 (8.6-10.8) mg/dL Adrenal panel 09/18/16 Range/Units 05:41 Sodium 133 L (136-145) mEq/L Potassium 3.9 (3.5-4.5) mEq/L Chloride 109 (98-109) mEq/L Carbon Dioxide 20 (19-29) mEq/L BUN 28 H (8-26) mg/dL Creatinine 1.96 H (0.72-1.25) mg/dL Glucose 97 (70-99) mg/dL Calcium 8.6 (8.6-10.8) mg/dL - Imaging CT scan - abdomen: report reviewed, image reviewed Additional Studies: Abdomen/Pelvis CT 09/17/16 09:45 IMPRESSION: Persistent pneumoperitoneum, in keeping with perforated sigmoid diverticulitis. Inflammatory change within the pelvis has increased as compared to prior examination, without gross drainable collection. Right greater than left lower lobe airspace disease, compatible with pneumonia. Bilateral perinephric stranding is seen as well as thickening of the bladder wall. If there is clinical concern for infection, suggest correlation with urinalysis. Findings were discussed with Skyler Montenegro at 10:16 on 09/17/2016. D/ / John West MD / John West MD Interpreting Provider: John West MD Consult Discharge Plan - Plan Referrals: [facility] [Primary Care Provider] -
[2016-09-18] MEDS: metroNIDAZOLE 500 MG TABLET PO SCH ×2 (12:29→19:59)
--- NOTE | 2016-09-18 15:07 | Internal Med Progress Note ---
Date of Encounter: 09/18/16 Time of Encounter: 15:06 - Assessment and plan (1) CKD (chronic kidney disease) Current Visit: Yes Status: Chronic Assessment and plan: 09/18/2016: GFR is at baseline. Continue monitoring BUN and creatinine daily Avoid nephrotoxic agents. Qualifiers: Chronic kidney disease stage: stage 4 (severe) Qualified Code(s): N18.4 - Chronic kidney disease, stage 4 (severe) (2) DVT prophylaxis Current Visit: No Status: Acute Assessment and plan: Subcutaneous heparin (3) Perforation of colon Current Visit: Yes Status: Acute Assessment and plan: 09/18/2016: Patient admitted with colonic perforation. Clinically improving. Abdomen soft today. He appears nontoxic. Continue with Levaquin and Flagyl. Serial abdominal exam. I appreciate general surgery input. Continue to advance his diet. 09/17/2016: Patient with history of diverticulosis, he had an event of diverticulitis with microperforations a few months ago which was managed conservatively. History of abdominal surgery back in the 1950s. Initial complaint was abdominal pain, initially labeled as pneumonia. Upon first evlauation in the mmedical floor I ordered a CT of the abdomen and pelvis without IV contrast and a significant amount of free air was found in the intraperitoneal area, consistent with perforation possible from the sigmoid colon. Currently on broad-spectrum antibiotics, levaquin and Flagyl. His leukocytosis has resolved. The patient is stable at this point. A CT of the abdomen was obtained today, no significant changes compared to prior imaging done. Continue with pain control. Doing clinically better, surgery n board, . Diet has been advanced to full liquids. We will monitor kidney function tests and electrolytes tomorrow in a.m. (4) Pneumococcal pneumonia Current Visit: Yes Status: Acute Assessment and plan: 09/18/2016: Patient initially presented with fever cough, found to have leukocytosis and bandemia with elevated lactic acid. CT of the chest showed a large confluent right lower lobe infiltrate consistent with pneumonia. Urine pneumococcal antigen positive, altogether leading to the diagnosis of right lower lobe pneumococcal pneumonia. Currently symptoms have improved. Initially started on Zosyn and vancomycin for pneumonia and sepsis, narrowed to Levaquin. We will continue with this to complete a 7-10 days course. It is the first time I am meeting this patient, all problems are new to me today. Qualifiers: Laterality: right Lung location: lower lobe of lung Qualified Code(s): J13 - Pneumonia due to Streptococcus pneumoniae - Subjective Interval history: 09/18/2016: The patient's abdominal pain has resolved. He presented 4 days ago with severe sharp left lower quadrant abdominal pain, has been pain-free for the last 24 hours. He has passed a liquid bowel movement today. He continues to pass gas. Denies any associated fevers or chills. Denies chest pain nausea vomiting. - Constitutional Vitals: Temp Pulse Resp BP Pulse Ox 97.9 F 68 16 173/82 98 09/18/16 11:31 09/18/16 11:31 09/18/16 11:31 09/18/16 11:31 09/18/16 11:31 General appearance: Present: A&O X 3, no acute distress - Respiratory Respiratory exam: Present: CTAB. Absent: accessory muscle use, rales, rhonchi, wheezes - Cardiovascular Cardiovascular exam: Present: RRR, +S1, +S2. Absent: diastolic murmur, gallop, rubs, systolic murmur - GI/Abdominal GI/Abdominal exam: Present: normal bowel sounds, soft, no peritoneal signs. Absent: distended, tenderness - Extremities Exam Extremities exam: Present: warm, radial pulses palpable and symetrical. Absent : calf tenderness, cyanotic, pedal edema - Neurological Exam Neurological exam: Present: CN II-XII intact, oriented X3, no focal deficits. Absent: pronater drift, facial droop, speech deficit - Skin Skin exam: Present: dry, intact Internal Medicine: Result - Labs CBC & Chem 7: 09/18/16 05:41 09/18/16 05:41 Labs: Short CBC 09/18/16 Range/Units 05:41 WBC 6.8 (4.3-11.1) K/mcL Hgb 10.8 L (12.9-16.9) g/dL Hct 31.7 L (37.5-50.1) % Plt Count 171 (140-400) K/mcL Neutrophils # 4.1 (1.6-8.9) K/mcL BMP 09/18/16 05:41 Sodium 133 L Potassium 3.9 Chloride 109 Carbon Dioxide 20 BUN 28 H Creatinine 1.96 H Glucose 97 Calcium 8.6 Consult Discharge Plan - Plan Referrals: [facility] [Primary Care Provider] -
[2016-09-19] MEDS: metroNIDAZOLE 500 MG TABLET PO SCH ×3 (04:02→21:34)
[2016-09-19] MEDS ORDERED: levoFLOXacin 500 MG TABLET PO SCH (06:00)
[2016-09-19] MEDS: Levothyroxine 25 MCG TABLET PO SCH (06:29)
[2016-09-19] MEDS: *HR* Heparin 5,000 UNIT/ML VIAL SQ SCH ×2 (06:30→16:50)
[2016-09-19 07:24] LABS: Basophils # 0.1 K/mcL (0.0-0.2); Basophils % 0.9 %; Eosinophils # 0.3 K/mcL (0.0-0.6); Eosinophils % 4.3 %; Hematocrit 34.6 % (37.5-50.1); Hemoglobin 11.5 g/dL (12.9-16.9); Immature Granulocytes % 2.5 % (0-4); Lymphocytes # 1.8 K/mcL (0.6-4.6); Lymphocytes % 27.8 %; Mean Corpuscular HGB Conc 33.2 g/dL (31.6-35.5); Mean Corpuscular Hemoglobin 29.3 pg (28.0-33.3); Mean Platelet Volume 9.3 fL (9.4-12.4); Monocytes # 1.1 K/mcL (0.0-1.3); Monocytes % 16.7 %; Neutrophils # 3.1 K/mcL (1.6-8.9); Platelet Count 201 K/mcL (140-400); Red Blood Count 3.93 M/mcL (4.19-5.50); Red Cell Distribution Width 15.5 % (11.5-14.5); Segmented Neutrophils % 47.8 %
[2016-09-19 07:39] LABS: Calcium 8.8 mg/dL (8.6-10.8); Potassium 4.5 mEq/L (3.5-4.5)
--- NOTE | 2016-09-19 08:20 | General Surgery Progress Note ---
Date of Encounter: 09/20/16 Time of Encounter: 07:00 - Assessment and Plan (1) Perforation of colon Current Visit: Yes Status: Acute CT scan of abdomen and pelvis without IV or oral contrast on 09/14/16 demonstrated large amount of free intraperitoneal air throughout the abdomen without a definite source of perforation. Diverticulosis of left ivanna-colonic and sigmoid region. On examination: Patient is a very pleasant alert oriented 3, minimal abdominal tenderness in the left lower quadrant, no rebound rigidity or guarding/ peritoneal signs. Nonsurgical abdomen. Vital signs stable. Afebrile. Abdominal pain and bloating has significantly improved since admission. Patient is tolerating his full liquid diet well. States that he is ready for some other variety of food. Patient has been ambulating daily. Patient reports that he is having soft stools over the past 2 days. Resolved leukocytosis , slowly improved BUN 27 <28 <36<55<64 and stable creatinine. Plan: - Continue to advance diet to soft foods. - Continue oral antibiotics - Serial abdominal exams - Continue to encourage ambulation - Continue pain control Subjective Patient reports: feels better, pain is less, tolerating liquids well, voiding w/ o difficulty, flatus, bowel movement, afebrile Narrative: Patient was seen and examined. He states that he had much softer bowel movements yesterday and today. Has not had any leakage or constipation. Is voiding without difficulty. Is positive for flatus and minimal abdominal pain on palpitation of left lower quadrant. Patient states that he is much improved since his admission. Patient states he is feeling much better today. Patient is tolerating his clear liquids very well. States he may be ready for some more variety of food. Objective Vital Signs - Last 8 Hours Temp Pulse Resp BP Pulse Ox 09/19/16 06:25 98.1 F 78 14 159/84 95 09/19/16 03:42 98.2 F 81 16 161/76 96 Intake and Output 09/18/16 09/19/16 09/19/16 23:59 07:59 15:59 Intake Total 1200 / 1200 0 / 0 Output Total 0 / 0 Balance 1200 / 1200 0 / 0 Intake: Oral 1200 / 1200 0 / 0 Output: Urine 0 / 0 Other: Meal Dinner Percent of Meal Consumed 100% Weight 78.5 kg Patient Weight 09/19/16 23:59 Weight 78.5 kg - General physical appearance well developed, well nourished, no distress, moderate pain - Eyes PERRL, normal ocular movement - ENT normal pinna, normal nares, normal mucosa, atraumatic, normocephalic, CN 2-12 grossly intact - Neck Neck exam: no bruits, trachea midline - Respiratory normal expansion, normal respiratory effort, clear to auscultation - Cardiovascular Cardiovascular exam: Present: RRR, no murmurs/rubs/gallops. Absent: JVD - Abdomen Abdomen: Present: bowel sounds present, soft Abdominal Tenderness: LLQ (Minimal tenderness on palpation much improved from this weekend.) - Integumentary no rash, no abnormal pigmentation - Neurologic CN 2-12 grossly intact, normal coordination, normal sensation - Musculoskeletal normal gait, normal posture - Psychiatric oriented to time, oriented to person, oriented to place, speech is normal, memory intact - Labs 09/20/16 04:14 09/20/16 04:14 Diabetes panel 09/19/16 Range/Units 06:35 Sodium 135 L (136-145) mEq/L Potassium 4.5 (3.5-4.5) mEq/L Chloride 109 (98-109) mEq/L Carbon Dioxide 23 (19-29) mEq/L BUN 27 H (8-26) mg/dL Creatinine 1.98 H (0.72-1.25) mg/dL Glucose 87 (70-99) mg/dL Calcium 8.8 (8.6-10.8) mg/dL Calcium panel 09/19/16 Range/Units 06:35 Calcium 8.8 (8.6-10.8) mg/dL Pituitary panel 09/19/16 Range/Units 06:35 Sodium 135 L (136-145) mEq/L Potassium 4.5 (3.5-4.5) mEq/L Chloride 109 (98-109) mEq/L Carbon Dioxide 23 (19-29) mEq/L BUN 27 H (8-26) mg/dL Creatinine 1.98 H (0.72-1.25) mg/dL Glucose 87 (70-99) mg/dL Calcium 8.8 (8.6-10.8) mg/dL Adrenal panel 09/19/16 Range/Units 06:35 Sodium 135 L (136-145) mEq/L Potassium 4.5 (3.5-4.5) mEq/L Chloride 109 (98-109) mEq/L Carbon Dioxide 23 (19-29) mEq/L BUN 27 H (8-26) mg/dL Creatinine 1.98 H (0.72-1.25) mg/dL Glucose 87 (70-99) mg/dL Calcium 8.8 (8.6-10.8) mg/dL Consult Discharge Plan - Plan Referrals: [facility] [Primary Care Provider] - - Attending Attestation I examined this patient and my medical decision-making was reviewed with the TODDLER TEACHER/PA/Advanced Practice Nurse/Resident Physician. I agree with the documented findings, disposition and treatment plan as described except to the extent set forth below. I reviewed the assessment and physical examination. Patient has improving symptoms with no nausea or vomiting. Tolerating a soft diet. I agree with continued antibiotics and from my standpoint he can follow-up with me or through a PA approved general surgeon as an outpatient. Will follow from a distance.
[2016-09-19] MEDS: Metoprolol XL (24 HR) Succ 50 MG TAB.ER.24H PO SCH (08:36)
[2016-09-19] MEDS: Aspirin 81 MG TAB.CHEW PO SCH (08:36)
--- NOTE | 2016-09-19 19:27 | Internal Med Progress Note ---
Date of Encounter: 09/19/16 Time of Encounter: 15:00 - Assessment and plan (1) CKD (chronic kidney disease) Current Visit: Yes Status: Chronic Assessment and plan: 09/18/2016: GFR is at baseline. Continue monitoring BUN and creatinine daily Avoid nephrotoxic agents. Qualifiers: Chronic kidney disease stage: stage 4 (severe) Qualified Code(s): N18.4 - Chronic kidney disease, stage 4 (severe) (2) DVT prophylaxis Current Visit: No Status: Acute Assessment and plan: Subcutaneous heparin (3) Perforation of colon Current Visit: Yes Status: Acute Assessment and plan: 09/19/2016: Advance diet. Continue with oral antibiotics. Monitor clinically. 09/18/2016: Patient admitted with colonic perforation. Clinically improving. Abdomen soft today. He appears nontoxic. Continue with Levaquin and Flagyl. Serial abdominal exam. I appreciate general surgery input. Continue to advance his diet. 09/17/2016: Patient with history of diverticulosis, he had an event of diverticulitis with microperforations a few months ago which was managed conservatively. History of abdominal surgery back in the 1950s. Initial complaint was abdominal pain, initially labeled as pneumonia. Upon first evlauation in the mmedical floor I ordered a CT of the abdomen and pelvis without IV contrast and a significant amount of free air was found in the intraperitoneal area, consistent with perforation possible from the sigmoid colon. Currently on broad-spectrum antibiotics, levaquin and Flagyl. His leukocytosis has resolved. The patient is stable at this point. A CT of the abdomen was obtained today, no significant changes compared to prior imaging done. Continue with pain control. Doing clinically better, surgery n board, . Diet has been advanced to full liquids. We will monitor kidney function tests and electrolytes tomorrow in a.m. (4) Pneumococcal pneumonia Current Visit: Yes Status: Acute Assessment and plan: 09/19/2016: Continue with Levaquin for pneumococcal pneumonia for total of 7 day course. 09/18/2016: Patient initially presented with fever cough, found to have leukocytosis and bandemia with elevated lactic acid. CT of the chest showed a large confluent right lower lobe infiltrate consistent with pneumonia. Urine pneumococcal antigen positive, altogether leading to the diagnosis of right lower lobe pneumococcal pneumonia. Currently symptoms have improved. Initially started on Zosyn and vancomycin for pneumonia and sepsis, narrowed to Levaquin. We will continue with this to complete a 7-10 days course. It is the first time I am meeting this patient, all problems are new to me today. Qualifiers: Laterality: right Lung location: lower lobe of lung Qualified Code(s): J13 - Pneumonia due to Streptococcus pneumoniae (5) Cardiac arrhythmia Current Visit: Yes Status: Acute Assessment and plan: Patient reports a history of cardiac arrhythmia but no atrial fibrillation. We will obtain an EKG. He denies chest pain or palpitations lightheadedness and any other cardiac related symptom at this time. We will monitor clinically. Qualifiers: Arrhythmia type: unspecified cardiac arrhythmia Qualified Code(s): I49.9 - Cardiac arrhythmia, unspecified - Subjective Interval history: 09/19/2016: Patient denies abdominal pain, nausea and vomiting. He tolerated soft diet. 09/18/2016: The patient's abdominal pain has resolved. He presented 4 days ago with severe sharp left lower quadrant abdominal pain, has been pain-free for the last 24 hours. He has passed a liquid bowel movement today. He continues to pass gas. Denies any associated fevers or chills. Denies chest pain nausea vomiting. - Constitutional Vitals: Temp Pulse Resp BP Pulse Ox 97.6 F 87 13 168/72 97 09/19/16 16:19 09/19/16 16:19 09/19/16 16:19 09/19/16 16:19 09/19/16 16:19 General appearance: Present: A&O X 3, no acute distress - Eye Eye exam: Present: PERRL, conjuntiva pink, sclera anicteric Pupils: Present: PERRL - Respiratory Respiratory exam: Present: CTAB. Absent: accessory muscle use, rales, rhonchi, wheezes - Cardiovascular Cardiovascular exam: Present: irregular rhythm, +S1, +S2. Absent: diastolic murmur, gallop, rubs, systolic murmur - GI/Abdominal GI/Abdominal exam: Present: normal bowel sounds, soft, no peritoneal signs. Absent: distended, tenderness - Neurological Exam Neurological exam: Present: CN II-XII intact, oriented X3, no focal deficits. Absent: pronater drift, facial droop, speech deficit - Skin Skin exam: Present: dry, intact Internal Medicine: Result - Labs CBC & Chem 7: 09/19/16 06:35 09/19/16 06:35 Labs: Short CBC 09/19/16 Range/Units 06:35 WBC 6.5 (4.3-11.1) K/mcL Hgb 11.5 L (12.9-16.9) g/dL Hct 34.6 L (37.5-50.1) % Plt Count 201 (140-400) K/mcL Neutrophils # 3.1 (1.6-8.9) K/mcL BMP 09/19/16 06:35 Sodium 135 L Potassium 4.5 Chloride 109 Carbon Dioxide 23 BUN 27 H Creatinine 1.98 H Glucose 87 Calcium 8.8 Consult Discharge Plan - Plan [facility]errals: [facility] [Primary Care Provider] -
[2016-09-20] MEDS: metroNIDAZOLE 500 MG TABLET PO SCH ×2 (03:49→13:07)
[2016-09-20 05:07] LABS: Basophils # 0.1 K/mcL (0.0-0.2); Basophils % 0.8 %; Eosinophils # 0.3 K/mcL (0.0-0.6); Eosinophils % 3.9 %; Hematocrit 31.4 % (37.5-50.1); Hemoglobin 10.9 g/dL (12.9-16.9); Immature Granulocytes % 3.6 % (0-4); Lymphocytes # 1.9 K/mcL (0.6-4.6); Lymphocytes % 29.4 %; Mean Corpuscular HGB Conc 34.7 g/dL (31.6-35.5); Mean Corpuscular Hemoglobin 30.2 pg (28.0-33.3); Monocytes % 15.8 %; Neutrophils # 3.1 K/mcL (1.6-8.9); Platelet Count 221 K/mcL (140-400); Red Blood Count 3.61 M/mcL (4.19-5.50); Red Cell Distribution Width 15.8 % (11.5-14.5); Segmented Neutrophils % 46.5 %
[2016-09-20 05:19] LABS: Calcium 8.5 mg/dL (8.6-10.8)
[2016-09-20] MEDS: Levothyroxine 25 MCG TABLET PO SCH (06:31)
[2016-09-20] MEDS: *HR* Heparin 5,000 UNIT/ML VIAL SQ SCH (06:32)
[2016-09-20] MEDS: Metoprolol XL (24 HR) Succ 50 MG TAB.ER.24H PO SCH (08:27)
[2016-09-20] MEDS: Aspirin 81 MG TAB.CHEW PO SCH (08:27)
--- NOTE | 2016-09-20 09:56 | General Surgery Progress Note ---
Date of Encounter: 09/20/16 Time of Encounter: 07:00 - Assessment and Plan (1) Perforation of colon Current Visit: Yes Status: Acute CT scan of abdomen and pelvis without IV or oral contrast on 09/14/16 demonstrated large amount of free intraperitoneal air throughout the abdomen without a definite source of perforation. Diverticulosis of left ivanna-colonic and sigmoid region. On examination: Patient is a very pleasant alert oriented 3, no abdominal tenderness, no rebound rigidity or guarding/peritoneal signs. Nonsurgical abdomen. Vital signs stable. Afebrile. Abdominal pain and bloating has significantly improved since admission. Patient has been ambulating daily. Patient reports no abdominal pain today. Tolerating soft diet well. Stable from surgical standpoint. Discharge planning per hospital team. Resolved leukocytosis , improved BUN 27 and stable creatinine. Plan: - Continue soft foods - Continue oral antibiotics - Serial abdominal exams - Continue to encourage ambulation - Continue pain control Discharge planning per hospital team. PLEASE HAVE [facility] CALL AND SCHEDULE YOU AN APPOINTMENT TO SEE DR VILA in 10-14 days for FOLLOW UP. Subjective Patient reports: no new complaints, feels better, pain is less, flatus, bowel movement, afebrile Narrative: Patient was seen and examined. He states that he has had multiple soft bowel movements yesterday and today. States that he was walking around the [place] so much yesterday that the nurses thought he may be trying to leave. However, he states that he was feeling so good he wanted to get up and walk around more. Patient is tolerating soft diet well. He reports no abdominal pain or tenderness today. Objective Vital Signs - Last 8 Hours Temp Pulse Resp BP Pulse Ox 09/20/16 08:28 93 09/20/16 04:17 98.1 F 75 16 155/79 93 Intake and Output 09/19/16 09/20/16 09/20/16 23:59 07:59 15:59 Intake Total 360 / 360 Output Total 525 / 525 Balance 360 / 360 -525 / -525 Intake: Oral 360 / 360 Output: Urine 525 / 525 Other: Meal Dinner Percent of Meal Consumed 100% Weight 78.49 kg Patient Weight 09/20/16 23:59 Weight 78.49 kg - General physical appearance well developed, well nourished, no pain - Eyes PERRL, normal ocular movement - ENT normal nares, normal mucosa - Neck Neck exam: trachea midline, no venous distension - Respiratory normal expansion, normal respiratory effort, clear to auscultation - Cardiovascular Cardiovascular exam: Present: RRR, no murmurs/rubs/gallops. Absent: JVD - Abdomen Abdomen: Present: bowel sounds present, soft, non tender - Integumentary no rash, no abnormal pigmentation - Neurologic CN 2-12 grossly intact, normal coordination, normal sensation - Musculoskeletal normal gait, normal posture - Psychiatric oriented to time, oriented to person, oriented to place, speech is normal, memory intact - Labs 09/20/16 04:14 09/20/16 04:14 Diabetes panel 09/20/16 Range/Units 04:14 Sodium 133 L (136-145) mEq/L Potassium 4.0 (3.5-4.5) mEq/L Chloride 108 (98-109) mEq/L Carbon Dioxide 20 (19-29) mEq/L BUN 31 H (8-26) mg/dL Creatinine 2.12 H (0.72-1.25) mg/dL Glucose 85 (70-99) mg/dL Calcium 8.5 L (8.6-10.8) mg/dL Calcium panel 09/20/16 Range/Units 04:14 Calcium 8.5 L (8.6-10.8) mg/dL Pituitary panel 09/20/16 Range/Units 04:14 Sodium 133 L (136-145) mEq/L Potassium 4.0 (3.5-4.5) mEq/L Chloride 108 (98-109) mEq/L Carbon Dioxide 20 (19-29) mEq/L BUN 31 H (8-26) mg/dL Creatinine 2.12 H (0.72-1.25) mg/dL Glucose 85 (70-99) mg/dL Calcium 8.5 L (8.6-10.8) mg/dL Adrenal panel 09/20/16 Range/Units 04:14 Sodium 133 L (136-145) mEq/L Potassium 4.0 (3.5-4.5) mEq/L Chloride 108 (98-109) mEq/L Carbon Dioxide 20 (19-29) mEq/L BUN 31 H (8-26) mg/dL Creatinine 2.12 H (0.72-1.25) mg/dL Glucose 85 (70-99) mg/dL Calcium 8.5 L (8.6-10.8) mg/dL Consult Discharge Plan - Plan Additional Instructions: Please have [facility] Refer you to Dr. Vila's office for a follow-up appointment. Referrals: [facility] [Primary Care Provider] -
[2016-09-20 11:26] VITALS: BP 147/85
--- NOTE | 2016-09-20 14:10 | Electrocardiograph Report ---
[place] [id number] Test Date: 2016-09-19 Pat Name: Sebastián Morgan Department: 112 Room: 2A48 Gender: M Psychiatric Therapist: : [id number] Requested By: Damion Lynne Order Number: [id number] Reading MD: Mason Andrea MD Measurements Intervals [place] Rate: 83 P: 10 AR: 223 QRS: -23 QRSD: 112 T: 64 QT: 370 QTc: 410 Interpretive Statements SINUS RHYTHM WITH FIRST DEGREE AV BLOCK WITH OCCASIONAL VENTRICULAR PREMATURE COMPLEXES BORDERLINE LEFT AXIS DEVIATION LEFT VENTRICULAR HYPERTROPHY AND ST-T CHANGE BASELINE ARTIFACT Electronically Signed On 09-20-2016 14:08:51 EDT by Mason Andrea MD
--- NOTE | 2016-09-20 16:21 | Discharge Summary ---
Date of Encounter: 09/20/16 Time of Encounter: 13:18 - Discharge Diagnosis (1) CKD (chronic kidney disease) Priority: Secondary Status: Chronic Qualifiers: Chronic kidney disease stage: stage 4 (severe) Qualified Code(s): N18.4 - Chronic kidney disease, stage 4 (severe) (2) Perforation of colon Priority: Secondary Status: Acute (3) Pneumococcal pneumonia Priority: Primary Status: Acute Qualifiers: Laterality: right Lung location: lower lobe of lung Qualified Code(s): J13 - Pneumonia due to Streptococcus pneumoniae (4) Cardiac arrhythmia Priority: Secondary Status: Acute Qualifiers: Arrhythmia type: unspecified cardiac arrhythmia Qualified Code(s): I49.9 - Cardiac arrhythmia, unspecified - Discharge Medications Prescriptions: levoFLOXacin [Levaquin] 750 mg PO Q48H #5 tablet metroNIDAZOLE [Flagyl] 500 mg PO Q8H #15 tablet Home Medications: Amlodipine Besylate 10 mg PO DAILY 05/31/16 [History] Aspirin 81 mg PO DAILY 05/31/16 [History] Ezetimibe [Zetia] 10 mg PO DAILY 05/31/16 [History] Isosorbide DInitrate [Isordil] 20 mg PO TID 05/31/16 [History] Levothyroxine [Synthroid] 37.5 mcg PO QAM 05/31/16 [History] Losartan [Cozaar] 25 mg PO DAILY 05/31/16 [History] Metoprolol XL (24 HR) Succ [Toprol Xl] 50 mg PO DAILY 05/31/16 [History] Docusate [Colace] 100 mg PO AD PRN 09/13/16 [History] NIFEdipine [Afeditab Cr] 60 mg PO HS 09/13/16 [History] Psyllium Husk (with Sugar) [Konsyl Psyllium Fiber Packet] 3.4 gm PO BID [History] levoFLOXacin [Levaquin] 750 mg PO Q48H #5 tablet 09/20/16 [Rx] metroNIDAZOLE [Flagyl] 500 mg PO Q8H #15 tablet 09/20/16 [Rx] Allergies/Adverse Reactions: Allergies lovastatin Adverse Reaction (Verified 05/31/16 16:23) unknown [facility] list simvastatin Adverse Reaction (Verified 05/31/16 16:23) unknown [facility] list ivp dye Allergy (Uncoded 05/31/16 15:44) Anaphylaxis Procedures/tests Complete & Pending: Procedures Performed prior 72 hours Category Date Time Status ECG 12 lead ECG [ECG] Routine Y 09/19/16 15:44 Completed Date of admission: 09/14/16 04:00 Primary care physician: ADRIANE DÍAZ Consults: 09/14/16 10:38 Consult to Surgery [CONS] Routine Consulting Provider: Carmen Peterson Surgical Reason for Consult: free intraperitoneal air Call Completed: No - Patient Status Disposition: Home, Self-Care Condition: Serious Functional capacity at discharge: independent ambulation Overall status at discharge: patient is back to baseline - Discharge Instructions Instructions: Pneumonia (DC) Follow Up With: [facility],PCP [Primary Care Provider] - 09/25/16 1:15 pm Skyler Montenegro MD [Partnered Physician] - Forms: ED Satisfaction Letter, Work/School Release Additional Instructions: Medical instructions: Please advanced to diet slowly. Follow-up with primary care physician in one week. If you have severe abdominal pain, nausea nausea and vomiting or rectal bleeding, high fever please return to the emergency department. Please have [facility] Refer you to Dr. Montenegro's office for a follow-up appointment. - Diet and Activity Activity: increase activity as tolerated Diet: other (Soft mechanical diet) Hospital course: Mr. Morgan is a 81 year old male with past medical history significant for CAD status post CABG who was transferred from the [facility] for evaluation of cough and abdominal pain. He was diagnosed with pneumonia and started on IV antibiotics. He also had complained of diffuse abdominal pain just started a day prior to presentation. Had a CT scan done in the emergency department which revealed findings concerning for sigmoid perforation. The patient was admitted to the medical service and general surgery was consulted. He received treatment with IV fluids and IV antibiotics. Surgery opted for conservative management. He was initially nothing by mouth and his diet was advanced to clear and then full liquid diet. He tolerated this well. He completed 4 days of IV antibiotics and was switched to oral antibiotics which she tolerated well. He remained afebrile and tolerated a diet and is currently medically stable for discharge home. He was instructed to follow-up with his general surgeon at the referral of the [facility] physician. He will be discharged home to complete a course of Levaquin and Flagyl. He verbalizes understanding and agreement with the discharge plan. - Time Spent with Patient Total time spent providing and/or coordinating discharge services: Greater than 30 minutes (I spent 40 minutes coordinating this discharge) - Constitutional Vitals: Temp Pulse Resp BP Pulse Ox 97.6 F 69 18 147/85 96 09/20/16 11:22 09/20/16 11:22 09/20/16 11:22 09/20/16 11:22 09/20/16 11:22 General appearance: Present: A&O X 3, no acute distress - Respiratory Respiratory exam: Present: CTAB. Absent: accessory muscle use, rales, rhonchi, wheezes - Cardiovascular Cardiovascular exam: Present: RRR, +S1, +S2. Absent: diastolic murmur, gallop, rubs, systolic murmur - GI/Abdominal GI/Abdominal exam: Present: normal bowel sounds, soft, no peritoneal signs. Absent: distended, tenderness - Skin Skin exam: Present: dry, intact. Absent: erythema
== END 2016-09-20 16:54 | disposition home or self-care (01) | DRG 871 ==
LOC: EMEROO 20:42 → 2ANU 20:42 → SUATTDRO 09-14 04:00
PROVIDERS: ADMIT Internal Medicine; ATTEND Internal Medicine

== ENCOUNTER 2019-03-10 16:21 | Inpatient (IN) ==
[2019-03-10] MEDS ORDERED: Azithromycin 500 MG in 0.9 % Sodium Chloride 250 ML IVPB ONE (16:53)
[2019-03-10] MEDS ORDERED: Ipratropium/Albuterol Neb 3 ML IH ONE (16:58)
[2019-03-10] MEDS ORDERED: 0.9 % Sodium Chloride 1,000 ML IVC ONE (16:59)
[2019-03-10] MEDS ORDERED: cefTRIAXone 1,000 MG in Water for inj. (sterile) 10 ML IVP SCH (17:00)
[2019-03-10 17:32] LABS: Basophils % 0.3 %; Eosinophils % 0.3 %; Hematocrit 28.5 % (37.5-50.1); Hemoglobin 9.4 g/dL (12.9-16.9); Immature Granulocytes % 0.4 % (0-4); Lymphocytes # 2.4 K/mcL (0.6-4.6); Lymphocytes % 22.9 %; Mean Corpuscular Hemoglobin 30.8 pg (28.0-33.3); Mean Corpuscular Volume 93.4 fL (83.0-100.0); Mean Platelet Volume 9.8 fL (9.4-12.4); Monocytes # 0.9 K/mcL (0.0-1.3); Monocytes % 9.1 %; Platelet Count 151 K/mcL (140-400); Red Blood Count 3.05 M/mcL (4.19-5.50); Red Cell Distribution Width 14.6 % (11.5-14.5); White Blood Count 10.4 K/mcL (4.3-11.1)
[2019-03-10] MEDS: predniSONE 20 MG TABLET PO ONE ×2 (17:42→17:45)
[2019-03-10] MEDS ORDERED: Naloxone 0.4 MG/ML INJ IVP PRN (17:48)
[2019-03-10 17:50] LABS: Calcium 9.7 mg/dL (8.6-10.3); Potassium 3.7 mEq/L (3.5-5.1)
[2019-03-10 17:54] LABS: Troponin I 0.11 ng/mL (< 0.04)
[2019-03-10] MEDS ORDERED: Albuterol 2.5 MG/3 ML NEBULIZER IH PRN (18:38)
[2019-03-10] MEDS ORDERED: 0.9 % Sodium Chloride 1,000 ML IVC SCH (18:45)
[2019-03-10] MEDS: NIFEdipine XL (24 HR) 30 MG TAB.ER.24 PO SCH (20:43)
[2019-03-10] MEDS: levETIRAcetam 250 MG TABLET PO SCH (20:44)
[2019-03-10] MEDS ORDERED: Perflutren Lipid Microsphere 1.3 ML in 0.9 % Sodium Chloride 8.7 ML IVP ONE (21:20)
[2019-03-10] MEDS ORDERED: Melatonin 3 MG TABLET PO ONE (22:45)
[2019-03-10 23:53] LABS: Bilirubin,Urine Negative (Negative); Blood,Urine Small (Negative); Clarity,Urine Turbid (Clear); Color,Urine Yellow (Yellow); Glucose,Urine (UA) 100 mg/dL (Normal); Ketones,Urine Negative (Negative); Leukocyte Esterase,Urine Small (Negative); Nitrite,Urine Negative (Negative); Protein,Urine 100 mg/dL (Neg-Trace); Urobilinogen,Urine Normal (Normal)
[2019-03-10 23:55] LABS: Bacteria,Urine None Seen per hpf (None-Few); Hyaline Casts,Urine Few per lpf (None-Few); RBC,Urine 0-3 per hpf (0-3); Squamous Epithelial Cell,Urine Many per lpf (None-Few)
[2019-03-11 02:16] LABS: Hematocrit 26.9 % (37.5-50.1); Mean Corpuscular HGB Conc 33.5 g/dL (31.6-35.5); Mean Corpuscular Hemoglobin 31.5 pg (28.0-33.3); Mean Corpuscular Volume 94.1 fL (83.0-100.0); Mean Platelet Volume 10.2 fL (9.4-12.4); Platelet Count 132 K/mcL (140-400); Red Blood Count 2.86 M/mcL (4.19-5.50); Red Cell Distribution Width 14.5 % (11.5-14.5); White Blood Count 6.2 K/mcL (4.3-11.1)
[2019-03-11 02:35] LABS: Calcium 9.2 mg/dL (8.6-10.3)
[2019-03-11] MEDS: Levothyroxine 25 MCG TABLET PO SCH (06:08)
[2019-03-11] MEDS ORDERED: cefTRIAXone 1,000 MG in Water for inj. (sterile) 10 ML IVP SCH (09:00)
[2019-03-11] MEDS ORDERED: Azithromycin 500 MG in 0.9 % Sodium Chloride 250 ML IVPB SCH ×2 (09:00→17:00)
[2019-03-11] MEDS: cefTRIAXone 1,000 MG in 0.9 % Sodium Chloride Mini Bag 100 ML IVPB SCH (10:38)
[2019-03-11] MEDS: Acetaminophen 325 MG TABLET PO PRN ×2 (10:39→16:43)
[2019-03-11] MEDS: Metoprolol XL (24 HR) Succ 50 MG TAB.ER.24H PO SCH (10:39)
[2019-03-11] MEDS: Cholecalciferol (D-3) 1,000 UNIT (25MCG) TABLET PO SCH (10:39)
[2019-03-11] MEDS: levETIRAcetam 250 MG TABLET PO SCH ×2 (10:39→20:24)
[2019-03-11] MEDS: NIFEdipine XL (24 HR) 30 MG TAB.ER.24 PO SCH (20:23)
[2019-03-11] MEDS ORDERED: Melatonin 3 MG TABLET PO ONE (22:25)
[2019-03-12] MEDS: Levothyroxine 25 MCG TABLET PO SCH (05:56)
[2019-03-12 06:22] LABS: Basophils % 0.3 %; Eosinophils # 0.1 K/mcL (0.0-0.6); Hematocrit 26.6 % (37.5-50.1); Immature Granulocytes % 0.5 % (0-4); Lymphocytes # 1.3 K/mcL (0.6-4.6); Lymphocytes % 20.8 %; Mean Corpuscular HGB Conc 33.8 g/dL (31.6-35.5); Mean Corpuscular Volume 91.7 fL (83.0-100.0); Mean Platelet Volume 10.2 fL (9.4-12.4); Monocytes # 0.5 K/mcL (0.0-1.3); Monocytes % 7.9 %; Neutrophils # 4.4 K/mcL (1.6-8.9); Platelet Count 165 K/mcL (140-400); Red Cell Distribution Width 14.7 % (11.5-14.5); Segmented Neutrophils % 68.5 %; White Blood Count 6.4 K/mcL (4.3-11.1)
[2019-03-12 06:41] LABS: Calcium 9.2 mg/dL (8.6-10.3); Magnesium 2.1 mg/dL (1.6-2.6); Phosphorous 5.7 mg/dL (2.7-4.5); Potassium 3.8 mEq/L (3.5-5.1)
[2019-03-12] MEDS: Metoprolol XL (24 HR) Succ 50 MG TAB.ER.24H PO SCH (11:09)
[2019-03-12] MEDS: levETIRAcetam 250 MG TABLET PO SCH ×2 (11:09→21:14)
[2019-03-12] MEDS: Cholecalciferol (D-3) 1,000 UNIT (25MCG) TABLET PO SCH (11:09)
[2019-03-12] MEDS: cefTRIAXone 1,000 MG in 0.9 % Sodium Chloride Mini Bag 100 ML IVPB SCH (11:09)
[2019-03-12] MEDS: Aspirin Enteric Coated 81 MG Tablet PO SCH (11:10)
[2019-03-12] MEDS: predniSONE 20 MG TABLET PO SCH (11:11)
[2019-03-12] MEDS ORDERED: Melatonin 3 MG TABLET PO PRN (20:53)
[2019-03-12] MEDS: Acetaminophen 325 MG TABLET PO PRN (21:14)
[2019-03-12] MEDS: NIFEdipine XL (24 HR) 30 MG TAB.ER.24 PO SCH (21:14)
[2019-03-13 05:09] VITALS: BP 129/62
[2019-03-13] MEDS: Levothyroxine 25 MCG TABLET PO SCH (06:00)
[2019-03-13 06:16] LABS: Calcium 9.8 mg/dL (8.6-10.3); Magnesium 2.2 mg/dL (1.6-2.6); Phosphorous 5.9 mg/dL (2.7-4.5); Potassium 3.8 mEq/L (3.5-5.1)
[2019-03-13] MEDS: Cholecalciferol (D-3) 1,000 UNIT (25MCG) TABLET PO SCH (09:01)
[2019-03-13] MEDS: Aspirin Enteric Coated 81 MG Tablet PO SCH (09:01)
[2019-03-13] MEDS: Metoprolol XL (24 HR) Succ 50 MG TAB.ER.24H PO SCH (09:01)
[2019-03-13] MEDS: levETIRAcetam 250 MG TABLET PO SCH (09:02)
[2019-03-13] MEDS: predniSONE 20 MG TABLET PO SCH (09:02)
[2019-03-13] MEDS: cefTRIAXone 1,000 MG in 0.9 % Sodium Chloride Mini Bag 100 ML IVPB SCH ×2 (09:03→09:26)
== END 2019-03-13 10:42 | disposition home or self-care (01) | DRG 193 ==
LOC: EMEROOARM 16:21 → 2ANU 16:21 → SUATTDRO 17:52 → 2ANU 18:35
PROVIDERS: ADMIT Student in an Organized Health Care Education/Training Program; ATTEND Internal Medicine

== ENCOUNTER 2019-04-25 19:05 | Inpatient (IN) ==
[2019-04-25 20:11] LABS: INR 1.3; Prothrombin Time 14.7 Seconds (9.4-12.1)
[2019-04-25] MEDS ORDERED: levETIRAcetam 250 MG TABLET PO STA (22:00)
[2019-04-25] MEDS ORDERED: levETIRAcetam 250 MG TABLET PO ONE (22:15)
[2019-04-25] MEDS ORDERED: Naloxone 0.4 MG/ML INJ IVP PRN (22:34)
[2019-04-26] MEDS: Melatonin 3 MG TABLET PO PRN (02:25)
[2019-04-26 03:48] LABS: Basophils # 0.1 K/mcL (0.0-0.2); Basophils % 1.1 %; Eosinophils # 0.2 K/mcL (0.0-0.6); Eosinophils % 2.5 %; Hematocrit 30.5 % (37.5-50.1); Hemoglobin 9.9 g/dL (12.9-16.9); Immature Granulocytes % 0.2 % (0-4); Lymphocytes # 2.4 K/mcL (0.6-4.6); Lymphocytes % 39.1 %; Mean Corpuscular HGB Conc 32.5 g/dL (31.6-35.5); Mean Corpuscular Hemoglobin 29.9 pg (28.0-33.3); Mean Corpuscular Volume 92.1 fL (83.0-100.0); Mean Platelet Volume 10.4 fL (9.4-12.4); Monocytes # 0.7 K/mcL (0.0-1.3); Monocytes % 10.6 %; Neutrophils # 2.8 K/mcL (1.6-8.9); Platelet Count 145 K/mcL (140-400); Red Blood Count 3.31 M/mcL (4.19-5.50); Red Cell Distribution Width 16.3 % (11.5-14.5); Segmented Neutrophils % 46.5 %; White Blood Count 6.1 K/mcL (4.3-11.1)
[2019-04-26 03:59] LABS: Calcium 10.6 mg/dL (8.6-10.3); Potassium 3.9 mEq/L (3.5-5.1)
[2019-04-26] MEDS: Levothyroxine 25 MCG TABLET PO SCH (05:03)
[2019-04-26] MEDS: levETIRAcetam 250 MG TABLET PO SCH (08:19)
[2019-04-26] MEDS: Aspirin 81 MG TAB.CHEW PO SCH (08:19)
[2019-04-26] MEDS: Cholecalciferol (D-3) 1,000 UNIT (25MCG) TABLET PO SCH (08:19)
[2019-04-26] MEDS: Metoprolol XL (24 HR) Succ 50 MG TAB.ER.24H PO SCH (08:19)
[2019-04-26] MEDS ORDERED: Ondansetron ODT 4 MG TAB.RAPDIS SL PRN (13:02)
[2019-04-26] MEDS: Furosemide 40 MG TABLET PO SCH (13:58)
[2019-04-26] MEDS ORDERED: Perflutren Lipid Microsphere 1.3 ML in 0.9 % Sodium Chloride 8.7 ML IVP ONE (14:14)
[2019-04-26] MEDS: Ipratropium/Albuterol Neb 3 ML IH PRN ×2 (14:24→19:59)
[2019-04-26] MEDS: Acetaminophen 325 MG TABLET PO PRN (14:41)
[2019-04-26] MEDS: *HR* Heparin 5,000 UNIT/ML VIAL SQ SCH (17:21)
[2019-04-26 19:59] LABS: Bilirubin,Urine Negative (Negative); Blood,Urine Trace (Negative); Clarity,Urine Clear (Clear); Color,Urine Yellow (Yellow); Glucose,Urine (UA) Normal (Normal); Ketones,Urine Negative (Negative); Leukocyte Esterase,Urine Negative (Negative); Nitrite,Urine Negative (Negative); PH,Urine 5.5 pH Units (5.0-8.0); Protein,Urine 100 mg/dL (Neg-Trace); Specific Gravity,Urine 1.019 (1.010-1.025); Urobilinogen,Urine Normal (Normal)
[2019-04-26 20:03] LABS: Bacteria,Urine None Seen per hpf (None-Few); RBC,Urine 0-3 per hpf (0-3); Squamous Epithelial Cell,Urine Many per lpf (None-Few); WBC,Urine 0-3 per hpf (0-3)
[2019-04-26 20:22] LABS: Hyaline Casts,Urine Few per lpf (None-Few)
[2019-04-27] MEDS: levETIRAcetam 250 MG TABLET PO SCH ×3 (00:13→22:57)
[2019-04-27] MEDS: NIFEdipine XL (24 HR) 30 MG TAB.ER.24 PO SCH ×2 (00:13→22:57)
[2019-04-27] MEDS: Acetaminophen 325 MG TABLET PO PRN ×2 (00:13→22:57)
[2019-04-27] MEDS: Melatonin 3 MG TABLET PO PRN ×2 (00:13→22:57)
[2019-04-27] MEDS: *HR* Heparin 5,000 UNIT/ML VIAL SQ SCH ×2 (04:58→18:30)
[2019-04-27] MEDS: Levothyroxine 25 MCG TABLET PO SCH (04:58)
[2019-04-27 05:30] LABS: Basophils # 0.1 K/mcL (0.0-0.2); Basophils % 1.1 %; Eosinophils # 0.1 K/mcL (0.0-0.6); Eosinophils % 0.8 %; Hematocrit 32.1 % (37.5-50.1); Hemoglobin 10.7 g/dL (12.9-16.9); Immature Granulocytes % 0.3 % (0-4); Lymphocytes # 2.5 K/mcL (0.6-4.6); Lymphocytes % 38.8 %; Mean Corpuscular HGB Conc 33.3 g/dL (31.6-35.5); Mean Corpuscular Volume 89.9 fL (83.0-100.0); Mean Platelet Volume 10.3 fL (9.4-12.4); Monocytes # 0.7 K/mcL (0.0-1.3); Monocytes % 11.2 %; Neutrophils # 3.1 K/mcL (1.6-8.9); Platelet Count 151 K/mcL (140-400); Red Blood Count 3.57 M/mcL (4.19-5.50); Red Cell Distribution Width 16.6 % (11.5-14.5); Segmented Neutrophils % 47.8 %; White Blood Count 6.5 K/mcL (4.3-11.1)
[2019-04-27 06:07] LABS: Calcium 10.4 mg/dL (8.6-10.3); Potassium 4.1 mEq/L (3.5-5.1)
[2019-04-27] MEDS: Cholecalciferol (D-3) 1,000 UNIT (25MCG) TABLET PO SCH (08:39)
[2019-04-27] MEDS: Furosemide 40 MG TABLET PO SCH (08:39)
[2019-04-27] MEDS: Metoprolol XL (24 HR) Succ 50 MG TAB.ER.24H PO SCH (08:39)
[2019-04-27] MEDS: Aspirin 81 MG TAB.CHEW PO SCH (08:39)
[2019-04-28 05:17] LABS: Calcium 10.1 mg/dL (8.6-10.3); Potassium 3.8 mEq/L (3.5-5.1)
[2019-04-28] MEDS: Levothyroxine 25 MCG TABLET PO SCH (05:59)
[2019-04-28] MEDS: *HR* Heparin 5,000 UNIT/ML VIAL SQ SCH ×2 (05:59→17:51)
[2019-04-28] MEDS: levETIRAcetam 250 MG TABLET PO SCH ×2 (09:58→19:40)
[2019-04-28] MEDS: Aspirin 81 MG TAB.CHEW PO SCH (09:58)
[2019-04-28] MEDS: Cholecalciferol (D-3) 1,000 UNIT (25MCG) TABLET PO SCH (09:58)
[2019-04-28] MEDS: Metoprolol XL (24 HR) Succ 50 MG TAB.ER.24H PO SCH (09:58)
[2019-04-28] MEDS: Albumin 25% 25gram/100mL 25 GM/100 ML IV.SOLN IVPB SCH ×2 (16:25→23:00)
[2019-04-28] MEDS: NIFEdipine XL (24 HR) 30 MG TAB.ER.24 PO SCH (19:40)
[2019-04-28] MEDS: Acetaminophen 325 MG TABLET PO PRN (21:08)
[2019-04-28 21:38] LABS: Bilirubin,Urine Negative (Negative); Blood,Urine Trace (Negative); Clarity,Urine Clear (Clear); Color,Urine Yellow (Yellow); Glucose,Urine (UA) Normal (Normal); Ketones,Urine Negative (Negative); Leukocyte Esterase,Urine Negative (Negative); Nitrite,Urine Negative (Negative); Protein,Urine 100 mg/dL (Neg-Trace); Specific Gravity,Urine 1.019 (1.010-1.025); Urobilinogen,Urine Normal (Normal)
[2019-04-28 21:41] LABS: Bacteria,Urine None Seen per hpf (None-Few); Hyaline Casts,Urine None Seen per lpf (None-Few); RBC,Urine 0-3 per hpf (0-3); Squamous Epithelial Cell,Urine Many per lpf (None-Few); WBC,Urine 0-3 per hpf (0-3)
[2019-04-28 22:01] LABS: Protein/Creatinine Ratio,Urine 2.71 mg/mg (0.00-0.20)
[2019-04-29] MEDS: Levothyroxine 25 MCG TABLET PO SCH (04:47)
[2019-04-29] MEDS: *HR* Heparin 5,000 UNIT/ML VIAL SQ SCH ×2 (04:48→16:42)
[2019-04-29] MEDS: Cholecalciferol (D-3) 1,000 UNIT (25MCG) TABLET PO SCH (09:23)
[2019-04-29] MEDS: Aspirin 81 MG TAB.CHEW PO SCH (09:23)
[2019-04-29] MEDS: Metoprolol XL (24 HR) Succ 50 MG TAB.ER.24H PO SCH (09:23)
[2019-04-29] MEDS: levETIRAcetam 250 MG TABLET PO SCH ×2 (09:23→21:02)
[2019-04-29 16:29] LABS: Calcium 10.6 mg/dL (8.6-10.3); Complement C3 81 mg/dL (87-200)
[2019-04-29] MEDS: Melatonin 3 MG TABLET PO PRN (21:02)
[2019-04-29] MEDS: NIFEdipine XL (24 HR) 30 MG TAB.ER.24 PO SCH (21:02)
[2019-04-29] MEDS: Acetaminophen 325 MG TABLET PO PRN (21:03)
[2019-04-30] MEDS: *HR* Heparin 5,000 UNIT/ML VIAL SQ SCH (05:01)
[2019-04-30] MEDS: Levothyroxine 25 MCG TABLET PO SCH (05:01)
[2019-04-30 06:16] LABS: Basophils # 0.1 K/mcL (0.0-0.2); Basophils % 1.3 %; Eosinophils # 0.2 K/mcL (0.0-0.6); Hematocrit 28.9 % (37.5-50.1); Hemoglobin 9.3 g/dL (12.9-16.9); Immature Granulocytes % 0.2 % (0-4); Lymphocytes # 2.4 K/mcL (0.6-4.6); Mean Corpuscular HGB Conc 32.2 g/dL (31.6-35.5); Mean Corpuscular Hemoglobin 29.5 pg (28.0-33.3); Mean Corpuscular Volume 91.7 fL (83.0-100.0); Mean Platelet Volume 10.7 fL (9.4-12.4); Monocytes # 0.7 K/mcL (0.0-1.3); Neutrophils # 2.3 K/mcL (1.6-8.9); Platelet Count 141 K/mcL (140-400); Red Blood Count 3.15 M/mcL (4.19-5.50); Red Cell Distribution Width 16.6 % (11.5-14.5); Segmented Neutrophils % 41.5 %; White Blood Count 5.6 K/mcL (4.3-11.1)
[2019-04-30 06:39] LABS: Calcium 10.3 mg/dL (8.6-10.3); Magnesium 2.3 mg/dL (1.6-2.6); Phosphorous 4.7 mg/dL (2.7-4.5); Potassium 3.7 mEq/L (3.5-5.1)
[2019-04-30 06:50] LABS: Thyroid Stimulating Hormone 5.907 mcIU/mL (0.340-5.600)
[2019-04-30 08:05] VITALS: BP 116/67
[2019-04-30] MEDS: Aspirin 81 MG TAB.CHEW PO SCH (09:19)
[2019-04-30] MEDS: levETIRAcetam 250 MG TABLET PO SCH (09:19)
[2019-04-30] MEDS: Cholecalciferol (D-3) 1,000 UNIT (25MCG) TABLET PO SCH (09:19)
[2019-04-30] MEDS: Metoprolol XL (24 HR) Succ 50 MG TAB.ER.24H PO SCH (09:19)
[2019-05-02 09:53] LABS: GBM IgG Multiplex Bead Assay 0 AU/mL (0-19); Glomerular Basement Memb IgG NEGATIVE (Negative)
[2019-05-02 09:55] LABS: Serine Protease-3 Antibody 1 AU/mL (0-19)
[2019-05-02 09:58] LABS: ANA IgG by ELISA NONE DETECTED (None Detected)
[2019-05-03 00:16] LABS: Alpha 2 Globulin (PEP) 0.65 g/dL (0.48-1.05); Beta Globulin (PEP) 0.48 g/dL (0.48-1.10)
[2019-05-03 04:30] LABS: IFE Reflexed IFE Done; Immunoglobulin G 3550 mg/dL (768-1632)
[2019-05-03 04:31] LABS: Immunoglobulin A 39 mg/dL (68-408); Immunoglobulin M 11 mg/dL (35-263)
== END 2019-04-30 12:29 | disposition home or self-care (01) | DRG 291 ==
LOC: 2ANU 19:05 → EMEROOARM 19:05 → SUATTDRO 22:31 → 2ANU 22:55 → SUATTDRO 04-28 12:59
PROVIDERS: ADMIT Internal Medicine; ATTEND Pharmacist